=== PATIENT | female | born 1940 | race Caucasian/White ===

== ENCOUNTER 2016-11-06 08:30 | Inpatient (IN) | payer OTHER, MEDICARE ==
[~2016-11-06] VITALS: Ht 162.6 cm; Wt 51.7 kg
[~2016-11-06 08:30] MED LIST: AUGMENTIN 875 M1 TAB PO; CALCIUM + D 6001 TAB PO; CARAFATE1 GM/10 ML PO; CENTRUM SILVER1 TA1 PO; COUMADIN 5 MG TA5 MG PO; CRESTOR20 M1 PO; CRESTOR20 MG PO; ELIQUIS2.5 MG PO; FENOFIBRATE145 MG PO; FOLIC ACID0.4 MG PO; HYDRODIURIL 112.5 M1 PO; IRBESARTAN300 MG PO; LEVOTHYROXIN0.088 M1 PO; LOPRESSOR 25MG25 MG PO; MASON NATURAL1200 MG PO; NEXIUM 40MG40 MG PO; NITROSTAT0.4 MG SL; PYRIDIUM100 MG PO; TRANS SCOPE PAT1 PAT TOP; TRIAMCINOLONE 0.1 GM TOP; WARFARIN SODIUM2 MG PO
--- NOTE | 2016-11-06 08:38 | NUR ---
PT TO ED S/P VOMITING AND DIARRHEA THIS AM, "WITH BRIGHT RED BLOOD IN BOTH". PT HAD KIDNEY PROCEDURE YESTERDAY "HAD FLUID DRAINED FROM LEFT KIDNEY".
--- NOTE | 2016-11-06 08:45 | NUR ---
PT DIRECTLY TO ROOM # 5, CHANGED TO HOSP GOWN FOR PROVIDER EVAL.
--- NOTE | 2016-11-06 08:48 | NUR ---
PT PLACED ON ACCOUNTANT SYSTEMS, 20G IV INSERTED TO RAC. EKG DONE BY MST AT BEDSIDE LABS DRAWN AND SENT.
--- NOTE | 2016-11-06 08:55 | NUR ---
NARDA TREVIZO AT BEDSIDE.
--- NOTE | 2016-11-06 08:59 | ED GI/GU/ABDOMINAL COMPLAINT ---
See Addendum History of Present Illness General Chief Complaint: Abdominal Pain/Flank Pain Stated Complaint: BLDY STOOLS TODAY AFTER KIDNEY PROCEDURE YESTERDAY Source: patient, family Exam Limitations: no limitations Vital Signs & Intake/Output Vital Signs & Intake/Output Vital Signs Date Time Temp Pulse Resp B/P Pulse O2 O2 Flow FiO2 Ox Delivery Rate 11/06 1531 97.8 52 20 130/60 91 Room Air 11/06 1459 98.2 52 18 105/50 95 Room Air 11/06 1229 57 16 152/65 97 Room Air 11/06 1134 97.4 53 18 118/58 99 Room Air 11/06 1043 98.4 56 16 134/60 100 Room Air 11/06 0944 93 Room Air Room Air 11/06 0833 95.6 52 20 123/82 93 Room Air Room Air Allergies Coded Allergies: darifenacin (Severe, UNKNOWN 11/29/15) lidocaine (Severe, RASH 11/29/15) nifedipine (Severe, UNKNOWN 11/29/15) phenobarbital (Severe, UNKNOWN 11/29/15) prednisolone (Severe, RASH 11/29/15) morphine (Mild, NAUSEA 11/29/15) Sulfa (Sulfonamide Antibiotics) (UNKNOWN 11/29/15) amitriptyline (RASH 11/29/15) aspirin (UNKNOWN 11/29/15) celecoxib (From CELEBREX) (UNKNOWN 11/29/15) clopidogrel (UNKNOWN 11/29/15) diclofenac (From VOLTAREN) (RASH 11/29/15) ezetimibe (UNKNOWN 11/29/15) fluoxetine (From PROZAC) (N/V 11/29/15) metoclopramide (UNKNOWN 11/29/15) nitrofurantoin (PAIN, TREMORS, N/V 11/29/15) ciprofloxacin (From CIPRO) (Severe, GI UPSET 11/29/15) Uncoded Allergies: ALL NASAL SPRAYS (Severe, UNKNOWN PER PT 04/17/15) Reconcile Medications Calcium Carbonate (Calcium) 600 MG (1,500 MG) TABLET 1 TAB PO BID SUPPLEMENT (Reported) Enoxaparin Sodium 80 MG/0.8 ML SYRINGE 40 MG SC BID UNK (Reported) Esomeprazole (Nexium) 40 MG CAPSULE.DR 1 CAP PO BID GI (Reported) FENOFIBRATE NANOCRYSTALLIZED (Fenofibrate) 145 MG TABLET 1 TAB PO DAILY CHOLESTEROL (Reported) Hydrochlorothiazide (Hydrodiuril 12.5 MG Tab) 12.5 MG CAPSULE 1 CAP PO DAILY BP (Reported) Hyoscyamine (Levsin) 0.125 MG TABLET 1 TAB PO BID UNK (Reported) Irbesartan 300 MG TAB 1 TAB PO DAILY HTN (Reported) Levothyroxine Sodium 0.088 MG TAB 1 TAB PO DAILY AC THYROID (Reported) Metoprolol Tartrate (Lopressor) 25 MG TABLET 1 TAB PO BID HEART (Reported) Multivitamin, Minerals, and (Centrum Silver) 1 TAB TAB 1 TAB PO DAILY SUPPLEMENT (Reported) Nitroglycerin (Nitrostat) 0.4 MG TAB.SUBL 1 TAB SL AD PRN ANGINA (Reported) DID NOT RECEIVE Rosuvastatin Calcium (Crestor) 20 MG TAB 20 MG PO DAILY CHOLESTEROL (Reported ) Scopolamine Hydrobromide (Transderm-Scop) 1.5MG/3DAY PATCH.TD.3 1 PAT TOP Q3D PRN VERTIGO (Reported) apply to the hairless area behind 1 ear at least 4 hours before effect is required; reapply every 3 days as needed Sucralfate (Carafate) 1 GRAM/10 ML ORAL.SUSP 10 ML PO TID GI (Reported) 1 hour before meals Triamcinolone Acetonide 0.1 % CREAM..G. 1 CLAUDIO TOP BID UNK (Reported) Warfarin Sodium (Coumadin) 5 MG TAB 5 MG PO DAILY BLOOD THINNER (Reported) Triage Note: PT TO ED S/P VOMITING AND DIARRHEA THIS AM, "WITH BRIGHT RED BLOOD IN BOTH". PT HAD KIDNEY PROCEDURE YESTERDAY "HAD FLUID DRAINED FROM LEFT KIDNEY". Triage Nurses Notes Reviewed? yes ? n Is pt currently ? No Onset: Abrupt Duration: day(s): (1), constant, getting worse Timing: recent history Location: generalized abdomen No Modifying Factors: none HPI: 75-year-old female that is on Coumadin comes into the emergency room for further evaluation after a renal aspiration occurred yesterday. Patient had a procedure done by Dr. Prieto. Patient reports that since then she's had some blood in her stool and was vomiting some blood. Patient also reports some generalized abdominal pain and generalized pain. Her left arm is also very sore. Denies any chills. Patient has had increased weakness. Denies any chest pain or shortness of breath. Nothing is seen to make the symptoms better. Patient reports that her stool color was black and bright red as well as her vomit. (ZULEIKA VASQUEZ) Past History Travel History Traveled to [place] past 21 day No Medical History Any Pertinent Medical History? 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 No (ZULEIKA VASQUEZ) Review of Systems Review of Systems Constitutional: Reports: see HPI. EENTM: Reports: no symptoms. Respiratory: Reports: no symptoms. Cardiovascular: Reports: no symptoms. GI: Reports: see HPI. Genitourinary: Reports: no symptoms. Musculoskeletal: Reports: see HPI. Skin: Reports: no symptoms. Neurological/Psychological: Reports: no symptoms. Hematologic/Endocrine: Reports: see HPI. Immunologic/Allergic: Reports: no symptoms. All Other Systems: Reviewed and Negative (ZULEIKA VASQUEZ) Physical Exam Physical Exam General Appearance: alert, awake, mild distress Head: atraumatic, normal appearance Eyes: Bilateral: normal appearance, EOMI. Ears, Nose, Throat, Mouth: hearing grossly normal, moist mucous membrane Neck: normal inspection Respiratory: normal breath sounds, no respiratory distress Cardiovascular: regular rate/rhythm Gastrointestinal: normal bowel sounds, soft, non-tender Rectal: heme negative stool Back: normal inspection Extremities: normal range of motion Neurologic/Psych: awake, alert, oriented x 3, normal gait, normal mood/affect Skin: intact, normal color Core Measures ACS in differential dx? No Severe Sepsis Present: No Septic Shock Present: No (ZULEIKA VASQUEZ) Progress Differential Diagnosis: kidney stone, pancreatitis, PID/cervicitis, peptic ulcer disease, varices, diverticulosis, angiodysplasia, hemorrhoids, perforated viscus , Plan of Care: Orders Procedure Date/time Status Heart Healthy Diet 11/06 D Active Patient Data 11/06 1357 Active Admit to inpatient 11/06 1259 Active Vital Signs 11/06 1259 Active Code Status 11/06 1259 Active LACTIC ACID 11/06 1148 Complete Add-on Test (ER Only) 11/06 1139 Active Straight Cath 11/06 0932 Active URINALYSIS 11/06 0932 Complete Intake & Output 11/06 0917 Active TROPONIN LEVEL 11/06 0848 Complete PARTIAL THROMBOPLASTIN TIME 11/06 0848 Complete PROTHROMBIN TIME 11/06 0848 Complete LACTIC ACID 11/06 0848 Complete COMPREHENSIVE METABOLIC PANEL 11/06 0848 Complete CBC WITHOUT DIFFERENTIAL 11/06 0848 Complete TYPE & SCREEN (NOT X-MATCH) 11/06 0848 Complete EKG 11/06 0832 Active Laboratory Tests 11/06/16 1222: Lactic Acid 1.2 11/06/16 0935: Urine Color YEL, Urine Clarity HAZY H, Urine pH 7.0, Ur Specific [place] 1.015, Urine Protein NEG, Urine Ketones NEG, Urine Nitrite POS H, Urine Bilirubin NEG, Urine Urobilinogen 1.0, Ur Leukocyte Esterase SMALL H, Ur Microscopic SEDIMENT EXAMINED, Urine RBC RARE, Urine WBC 10-15 H, Ur Epithelial Cells FEW, Urine Hemoglobin NEG, Urine Glucose NEG 11/06/16 0848: Anion Gap 13, Estimated GFR 48 L, BUN/Creatinine Ratio 24.5, Glucose 113 H, Lactic Acid 2.8 H, Calcium 9.8, Total Bilirubin 0.7, AST 49 H, ALT 39, Alkaline Phosphatase 73, Troponin I < 0.01, Total Protein 7.4, Albumin 4.5, Globulin 2.9, Albumin/Globulin Ratio 1.6, PT 11.7, INR 1.12, APTT 28, CBC w Diff NO MAN DIFF REQ, RBC 4.59, MCV 85.7, MCH 28.3, RDW 13.3, MPV 9.7, Gran % 78.0 H , Lymphocytes % 14.3 L, Monocytes % 6.5, Eosinophils % 1.0, Basophils % 0.2, Absolute Granulocytes 9.4 H, Absolute Lymphocytes 1.7, Absolute Monocytes 0.8 H, Absolute Eosinophils 0.1, Absolute Basophils 0, PUBS MCHC 33.0 Diagnostic Imaging: Viewed by Me: CT Scan. Discussed w/RAD: CT Scan. Radiology Impression: EXAM TYPE: CAT - CT ABD & PELVIS W/O IV CONTRAS EXAMINATION: CT ABDOMEN AND PELVIS WITHOUT CONTRAST CLINICAL INFORMATION: Left flank pain. COMPARISON: Multiple CT abdomen and pelvis most recent prior dated 06/25/2016 TECHNIQUE: Multidetector volumetric imaging was performed from the superior aspect of the liver through the pubic symphysis. Sagittal and coronal reformatted images were obtained on the technologist's workstation. DLP: 274.76 mGy-cm. FINDINGS: LUNG BASES: Subtle pulmonary nodule noted in the right base measuring approximately 0.4 cm has remained stable since 04/17/2015. Dependent atelectatic changes. Previously identified nodular opacity right posterior base is less well-visualized on the current examination. Pleural-based atelectatic changes bilateral bases. LIVER, GALLBLADDER, AND BILIARY TREE: The liver is normal in size, shape, and attenuation. No focal hepatic lesion or biliary ductal dilatation is present. Nonvisualization of the gallbladder. Stable prominence of the CBD measuring approximately 0.7 cm likely representing a postcholecystectomy change. PANCREAS: Unremarkable. SPLEEN: Unremarkable. ADRENAL GLANDS: Unremarkable. KIDNEYS AND URETERS: No evidence of renal stones. Stable minor fullness of the renal pelvis noted bilaterally. No obstructing calculi identified. Cortical infarct/indentation along the medial aspect left renal cortex. Previously identified low-attenuation lesion medial aspect left renal cortex is no longer visualized. BLADDER: Unremarkable. GASTROINTESTINAL TRACT: Incomplete distention of the stomach limiting the evaluation of the gastric wall. Small hiatal hernia. No acute bowel pathology. Evaluation of the bowel wall is limited due to incomplete distention notably sigmoid colon and rectum. No evidence of bowel obstruction. Minor diverticulosis. No evidence of acute diverticulitis., ABDOMINAL WALL: No significant hernia is appreciated. LYMPH NODES: No evidence of lymphadenopathy. VASCULAR: Atherosclerotic disease of the aorta and aortic branches. PELVIC VISCERA: Status post hysterectomy. No suspicious pelvic abnormality OSSEOUS STRUCTURES: Mild degenerative changes of the spine. No acute osseous abnormality. IMPRESSION: 1. Stable right lower lobe pulmonary nodule. Previously identified larger right lower lobe nodular opacity is less appreciated. Bibasilar atelectasis. 2. Mild fullness of bilateral renal collecting system without any gross hydronephrosis. No obstructing calculi. 3. No acute bowel pathology. 4. Cortical indentation and scarring noted in the medial aspect mid right kidney. Previously seen cortical lesion is no longer appreciated. DICTATED BY: DELANEY PAREDES MD DATE/TIME DICTATED:11/06/161055 EVENT SECURITY OFFICER:GRETEL Initial ED EKG: normal sinus rhythm, rate (60), nonspecific ST T wave chg, first -degree AV block (ZULEIKA VASQUEZ) Departure Departure Disposition: STILL A PATIENT Condition: Stable Clinical Impression Primary Impression: Lactic acid acidosis Secondary Impressions: Dehydration, Intractable abdominal pain, Leukocytosis Referrals: YOMI MONTES MD (PCP/Family) Departure Forms: Customer Survey General Discharge Information Admission Note Documentation of Exam: Documentation of any treatments & extenuating circumstances including Concerns Regarding Discharge (functional status, medication knowledge or non-compliance, living conditions, etc.) that warrant an admission rather than observation: Patient will require IV pain medication. Patient has required multiple doses of IV pain medication and emergency room and continues to have severe pain still. Patient is also continuously vomiting despite IV Zofran. Patient will require IV hydration secondary to lactic acidosis. Patient is unable to ambulate here in the emergency room. Patient is a fall risk. Patient would do poorly as an outpatient. Patient may require urology consultation from most recent aspiration of cyst. Patient will require also physical therapy consultation. (ZULEIKA VASQUEZ) Admission Note Spoke With: FREDY NAJERA MD Documentation of Exam: Documentation of any treatments & extenuating circumstances including Concerns Regarding Discharge (functional status, medication knowledge or non-compliance, living conditions, etc.) that warrant an admission rather than observation: [I' ve seen and personally examined the patient. She has intractable left flank pain after renal biopsy. Sending her home would be unsafe and is not unreasonable has she is in severe pain.] PA/LEAD WEB APPLICATION DEVELOPER Co-Sign Statement Statement: ED Attending supervision documentation- [X] I saw and evaluated the patient. I have also reviewed all the pertinent lab results and diagnostic results. I agree with the findings and the plan of care as documented in the PA's/LEAD WEB APPLICATION DEVELOPER's documentation. [] I have reviewed the ED Record and agree with the PA's/LEAD WEB APPLICATION DEVELOPER's documentation. [] Additions or exceptions (if any) to the PAs/LEAD WEB APPLICATION DEVELOPER's note and plan are summarized below: [] (COLEMAN GREENFIELD DO) Critical Care Note Critical Care Note Critical Care Time: 30-74 min (ZULEIKA VASQUEZ)
[2016-11-06 09:00] LABS: ABSOLUTE BASOPHIL COUNT 0 /CUMM (0.0-0.2); ABSOLUTE EOSINOPHIL COUNT 0.1 /CUMM (0.0-0.7); ABSOLUTE GRANULOCYTE CT 9.4 /CUMM (1.4-6.5); ABSOLUTE LYMPH COUNT 1.7 /CUMM (1.2-3.4); ABSOLUTE MONOCYTE COUNT 0.8 /CUMM (0.10-0.60); BASOPHIL % 0.2 % (0.0-2.0); HEMATOCRIT 39.3 % (37-47); MEAN CORPUSCULAR HGB 28.3 PG (27.0-31.0); MEAN CORPUSCULAR VOLUME 85.7 FL (81.0-99.0); MEAN PLATELET VOLUME 9.7 FL (7.4-10.4); PLATELET COUNT 251 /CUMM (130-400); RBC DISTRIBUTION WIDTH 13.3 % (11.5-14.5); RED BLOOD CELL CT 4.59 /CUMM (4.20-5.40)
[2016-11-06 09:11] LABS: PT 11.7 SEC (9.4-12.5); PTT 28 SEC (25-37)
[2016-11-06] MEDS ORDERED: CALCIUM600 M2 PO (09:12)
[2016-11-06] MEDS ORDERED: LEVSIN0.125 M1 PO (09:13)
[2016-11-06] MEDS ORDERED: TRIAMCINOLONE A15 G1 TOP (09:14)
--- NOTE | 2016-11-06 09:15 | NUR ---
ASSUMED CARE OF THIS PATIENT PT STRAIGHT CATHETERIZED FOR URINE SPECIMEN TOLERATED SAME WELL. SPECIMEN OBTAINED.
[2016-11-06] MEDS ORDERED: ENOXAPARIN80 MG/0.2 SC (09:16)
--- NOTE | 2016-11-06 09:19 | NUR ---
CRITICAL TEST RESULTS [id number] CHETAN SHARMA 75 F TESTS AND RESULTS: LACTIC ACID 2.8 Results received and read back by: TOMASZ MAGALLON Results received date and time: 11/06/16 0919 The following provider was notified of the results, and read the results back: NARDA TREVIZO Notified date and time: 11/06/16 at 0920
--- NOTE | 2016-11-06 09:29 | NUR ---
NANCY FROST AT BEDSIDE FOR REDRAW OF BLOOD, PT REPORTED INABILITY TO LIFT L ARM. UPON THIS RN EVAL PT OBSERVED TO LIFT ARM APPROX 6 INCHES OFF BED BUT NO FURTHER R/T PAIN. HAND GRASP SLIGHTLY WEAKER ON L ARM. LEG EXTENSION/FLEXION EQUAL. NARDA TREVIZO MADE AWARE OF SAME.
--- NOTE | 2016-11-06 09:42 | NUR ---
REPEAT PINK DRAWN AND SENT TO LAB.
--- NOTE | 2016-11-06 10:14 | NUR ---
IVF N/S INFUSION INITIATED AND PT MEDICATED WITH ZOFRAN AND DILAUDID PER ORDERS
--- NOTE | 2016-11-06 10:30 | NUR ---
PT TAKEN TO RADIOLOGY VIA STRETCHER
--- NOTE | 2016-11-06 11:21 | CT SCAN REPORT ---
EXAMINATION: CT ABDOMEN AND PELVIS WITHOUT CONTRAST CLINICAL INFORMATION: Left flank pain. COMPARISON: Multiple CT abdomen and pelvis most recent prior dated 06/25/2016 TECHNIQUE: Multidetector volumetric imaging was performed from the superior aspect of the liver through the pubic symphysis. Sagittal and coronal reformatted images were obtained on the technologist's workstation. DLP: 274.76 mGy-cm. FINDINGS: LUNG BASES: Subtle pulmonary nodule noted in the right base measuring approximately 0.4 cm has remained stable since 04/17/2015. Dependent atelectatic changes. Previously identified nodular opacity right posterior base is less well-visualized on the current examination. Pleural-based atelectatic changes bilateral bases. LIVER, GALLBLADDER, AND BILIARY TREE: The liver is normal in size, shape, and attenuation. No focal hepatic lesion or biliary ductal dilatation is present. Nonvisualization of the gallbladder. Stable prominence of the CBD measuring approximately 0.7 cm likely representing a postcholecystectomy change. PANCREAS: Unremarkable. SPLEEN: Unremarkable. ADRENAL GLANDS: Unremarkable. KIDNEYS AND URETERS: No evidence of renal stones. Stable minor fullness of the renal pelvis noted bilaterally. No obstructing calculi identified. Cortical infarct/indentation along the medial aspect left renal cortex. Previously identified low-attenuation lesion medial aspect left renal cortex is no longer visualized. BLADDER: Unremarkable. GASTROINTESTINAL TRACT: Incomplete distention of the stomach limiting the evaluation of the gastric wall. Small hiatal hernia. No acute bowel pathology. Evaluation of the bowel wall is limited due to incomplete distention notably sigmoid colon and rectum. No evidence of bowel obstruction. Minor diverticulosis. No evidence of acute diverticulitis., ABDOMINAL WALL: No significant hernia is appreciated. LYMPH NODES: No evidence of lymphadenopathy. VASCULAR: Atherosclerotic disease of the aorta and aortic branches. PELVIC VISCERA: Status post hysterectomy. No suspicious pelvic abnormality OSSEOUS STRUCTURES: Mild degenerative changes of the spine. No acute osseous abnormality. IMPRESSION: 1. Stable right lower lobe pulmonary nodule. Previously identified larger right lower lobe nodular opacity is less appreciated. Bibasilar atelectasis. 2. Mild fullness of bilateral renal collecting system without any gross hydronephrosis. No obstructing calculi. 3. No acute bowel pathology. 4. Cortical indentation and scarring noted in the medial aspect mid right kidney. Previously seen cortical lesion is no longer appreciated.
--- NOTE | 2016-11-06 11:37 | NUR ---
PT MEDICATED WITH ADDITIONAL DOSE OF DILAUDID PER ORDERS
--- NOTE | 2016-11-06 12:09 | NUR ---
PT MEDICATED WITH ZOFRAN PER ORDERS
--- NOTE | 2016-11-06 12:16 | NUR ---
1st set of blood cultures drawn and sent to lab.
--- NOTE | 2016-11-06 12:24 | NUR ---
REPEAT LACTIC DRAWN AND SENT TO LAB.
--- NOTE | 2016-11-06 12:28 | NUR ---
PT STATES PAIN IS BETTER BUT NAUSEA PERSISTS REFUSES TO ATTEMPT AMBULATION AT THIS TIME
--- NOTE | 2016-11-06 14:39 | NUR ---
PT ADMITTED TO ROOM 230
--- NOTE | 2016-11-06 14:43 | NUR ---
REPORT TO STEPHANIE DOUGLAS
--- NOTE | 2016-11-06 15:26 | History & Physical ---
CRISTINA SILVA 11/06/16 1524: General Information and HPI MD Statement: I have seen and personally examined CHETAN SHARMA and documented this H&P. The patient is a 75 year old F who presented with a patient stated chief complaint of []. Source of Information: patient Exam Limitations: no limitations History of Present Illness: This is a 75-year-old female with past medical history of hypertension , GERD, hyperlipidemia, ischemic heart disease status post stent placement and quadruple bypass on coumadin, mixed connective tissue disease, history of multiple frequent urinary tract infections, nephrolithiasis, anxiety, depression came in today on 11/06/2016 chief complain of vomiting and diarrhea with bright red blood present in both and worsening lower lumbar abdominal pain since today morning. Since last few months she has been having bilateral lower lumbar back pain, she was found to have bilateral renal cysts,this was being followed by Dr. Prieto as outpatient, she had drainage of the the renal cyst one day prior to admission after which since today mrtye, her pain incresed significalty, 10/10,no radiation,lower lumbar back left > right, and she also had an episode of vmiting with streaks of bright red blood and one episode of dirrhea with pinkish blood also, however no christine bleeding was observed. Subsequent vomiting on couple of occassions in the ER didnot have any blood. Of note she is allergic many medications as mentioned in allergy section. She denied any chills, chest pain, shortness of breath, diarrhea, constipation. Allergies/Medications Allergies: Coded Allergies: darifenacin (Severe, UNKNOWN 11/29/15) lidocaine (Severe, RASH 11/29/15) nifedipine (Severe, UNKNOWN 11/29/15) phenobarbital (Severe, UNKNOWN 11/29/15) prednisolone (Severe, RASH 11/29/15) morphine (Mild, NAUSEA 11/29/15) Sulfa (Sulfonamide Antibiotics) (UNKNOWN 11/29/15) amitriptyline (RASH 11/29/15) aspirin (UNKNOWN 11/29/15) celecoxib (From CELEBREX) (UNKNOWN 11/29/15) clopidogrel (UNKNOWN 11/29/15) diclofenac (From VOLTAREN) (RASH 11/29/15) ezetimibe (UNKNOWN 11/29/15) fluoxetine (From PROZAC) (N/V 11/29/15) metoclopramide (UNKNOWN 11/29/15) nitrofurantoin (PAIN, TREMORS, N/V 11/29/15) ciprofloxacin (From CIPRO) (Severe, GI UPSET 11/29/15) Uncoded Allergies: ALL NASAL SPRAYS (Severe, UNKNOWN PER PT 04/17/15) Home Med list Calcium Carbonate (Calcium) 600 MG (1,500 MG) TABLET 1 TAB PO BID SUPPLEMENT (Reported) Enoxaparin Sodium 80 MG/0.8 ML SYRINGE 40 MG SC BID UNK (Reported) Esomeprazole (Nexium) 40 MG CAPSULE.DR 1 CAP PO BID GI (Reported) FENOFIBRATE NANOCRYSTALLIZED (Fenofibrate) 145 MG TABLET 1 TAB PO DAILY CHOLESTEROL (Reported) Hydrochlorothiazide (Hydrodiuril 12.5 MG Tab) 12.5 MG CAPSULE 1 CAP PO DAILY BP (Reported) Hyoscyamine (Levsin) 0.125 MG TABLET 1 TAB PO BID UNK (Reported) Irbesartan 300 MG TAB 1 TAB PO DAILY HTN (Reported) Levothyroxine Sodium 0.088 MG TAB 1 TAB PO DAILY AC THYROID (Reported) Metoprolol Tartrate (Lopressor) 25 MG TABLET 1 TAB PO BID HEART (Reported) Multivitamin, Minerals, and (Centrum Silver) 1 TAB TAB 1 TAB PO DAILY SUPPLEMENT (Reported) Nitroglycerin (Nitrostat) 0.4 MG TAB.SUBL 1 TAB SL AD PRN ANGINA (Reported) DID NOT RECEIVE Rosuvastatin Calcium (Crestor) 20 MG TAB 20 MG PO DAILY CHOLESTEROL (Reported ) Scopolamine Hydrobromide (Transderm-Scop) 1.5MG/3DAY PATCH.TD.3 1 PAT TOP Q3D PRN VERTIGO (Reported) apply to the hairless area behind 1 ear at least 4 hours before effect is required; reapply every 3 days as needed Sucralfate (Carafate) 1 GRAM/10 ML ORAL.SUSP 10 ML PO TID GI (Reported) 1 hour before meals Triamcinolone Acetonide 0.1 % CREAM..G. 1 CLAUDIO TOP BID UNK (Reported) Warfarin Sodium (Coumadin) 5 MG TAB 5 MG PO DAILY BLOOD THINNER (Reported) Compliance With Home Meds: GOOD Past History Travel History Traveled to [place] past 21 day No Medical History Blood Transfusion Hx: No Neurological: NONE EENT: NONE Cardiovascular: hypertension, hyperlipidemia, myocardial infarction, STENTS X 3 CABGX 4 EMBOLIC FEET CARDIAC THROMBUS Respiratory: NONE Gastrointestinal: NONE Hepatic: NONE Renal: nephrolithiasis, previous urinary tract infections Musculoskeletal: osteoarthritis, Raynaud's syndrome Psychiatric: anxiety, depression Endocrine: NONE Blood Disorders: NONE Cancer(s): NONE SHRUB GROWER/Reproductive: NONE History of MRSA: No History of VRE: No History of CDIFF: No Surgical History Surgical History: CABG, cholecystectomy, hysterectomy Past Family/Social History Family History Relations & Conditions if any FATHER FH: heart attack MOTHER FHx: heart disease Psychosocial History Where do you live? Home Who Do You Live With? spouse Services at Home: None Primary Language: Northern Irish Smoking Status: Former Smoker ETOH Use: denies use Illicit Drug Use: denies illicit drug use Functional Ability ADLs Independent: dressing, eating, toileting, bathing. Ambulation: independent Review of Systems Review of Systems Constitutional: Denies: chills, diaphoresis, fever, malaise, weakness. EENTM: Denies: blurred vision, double vision, visual changes, eye pain, eye drainage. Cardiovascular: Denies: chest pain, edema, orthopena, palpitations. Respiratory: Denies: cough, hemoptysis, orthopnea, short of breath, sputum production, stridor, wheezing. GI: Reports: abdominal pain, nausea, bloody stool. Denies: bloating, constipation, diarrhea, distention. Genitourinary: Reports: dysuria, urgency. Denies: discharge, frequency, hematuria. Musculoskeletal: Reports: back pain, muscle pain. Denies: gout, joint pain, joint swelling. Skin: Reports: no symptoms. Neurological/Psychological: Reports: no symptoms. Hematologic/Endocrine: Reports: no symptoms. Immunologic/Allergic: Reports: no symptoms. All Other Systems: Reviewed and Negative Exam & Diagnostic Data Last 24 Hrs of Vital Signs/I&O Vital Signs Date Time Temp Pulse Resp B/P Pulse O2 O2 Flow FiO2 Ox Delivery Rate 11/06 1531 97.8 52 20 130/60 91 Room Air 11/06 1459 98.2 52 18 105/50 95 Room Air 11/06 1229 57 16 152/65 97 Room Air 11/06 1134 97.4 53 18 118/58 99 Room Air 11/06 1043 98.4 56 16 134/60 100 Room Air 11/06 0944 93 Room Air Room Air 11/06 0833 95.6 52 20 123/82 93 Room Air Room Air Intake & Output 11/06 1600 11/06 0800 11/06 0000 Intake Total Output Total 50 Balance -50 Output, Urine 50 Patient 51.71 kg Weight Physical Exam General Appearance Alert, Oriented X3, Cooperative, Mild Distress Skin No Rashes, No Breakdown, No Significant Lesion HEENT Atraumatic, PERRLA, EOMI Neck Supple, No JVD, No thryomegaly Lymphatic NAD Cardiovascular Regular Rate, Normal S1, Normal S2, No Murmurs Lungs Clear to Auscultation, Normal Air Movement Abdomen Normal Bowel Sounds, Soft, No Tenderness, back lower lumbar back tenderness, bandage present over the left renal cyst drainage yday, area clear, no redness, b/l CVA tenderness + Neurological Normal Gait, Normal Speech, Strength at 5/5 X4 Ext, Normal Tone, Sensation Intact, Cranial Nerves 3-12 NL Extremities No Clubbing, No Cyanosis, No Edema, Normal Pulses Vascular Normal Pulses Last 24 Hrs of Labs/Keshawn: Laboratory Tests 11/06/16 1222: Lactic Acid 1.2 11/06/16 0935: Urine Color YEL, Urine Clarity HAZY H, Urine pH 7.0, Ur Specific Pheba 1.015, Urine Protein NEG, Urine Ketones NEG, Urine Nitrite POS H, Urine Bilirubin NEG, Urine Urobilinogen 1.0, Ur Leukocyte Esterase SMALL H, Ur Microscopic SEDIMENT EXAMINED, Urine RBC RARE, Urine WBC 10-15 H, Ur Epithelial Cells FEW, Urine Hemoglobin NEG, Urine Glucose NEG 11/06/16 0848: Anion Gap 13, Estimated GFR 48 L, BUN/Creatinine Ratio 24.5, Glucose 113 H, Lactic Acid 2.8 H, Calcium 9.8, Total Bilirubin 0.7, AST 49 H, ALT 39, Alkaline Phosphatase 73, Troponin I < 0.01, Total Protein 7.4, Albumin 4.5, Globulin 2.9, Albumin/Globulin Ratio 1.6, PT 11.7, INR 1.12, APTT 28, CBC w Diff NO MAN DIFF REQ, RBC 4.59, MCV 85.7, MCH 28.3, RDW 13.3, MPV 9.7, Gran % 78.0 H , Lymphocytes % 14.3 L, Monocytes % 6.5, Eosinophils % 1.0, Basophils % 0.2, Absolute Granulocytes 9.4 H, Absolute Lymphocytes 1.7, Absolute Monocytes 0.8 H, Absolute Eosinophils 0.1, Absolute Basophils 0, PUBS MCHC 33.0 Microbiology 11/06 1658 BLOOD: Blood Culture - COLB 11/06 1653 URINE ROUT: Urine Culture - COLB 11/06 1653 BLOOD: Blood Culture - COLB Assessment/Plan Assessment: This is a 75-year-old female with past medical history of hypertension , GERD, hyperlipidemia, ischemic heart disease status post stent placement and quadruple bypass on coumadin, mixed connective tissue disease, history of multiple frequent urinary tract infections, nephrolithiasis,anxiety, depression came in today on 11/06/2016 for further evaluation after renal aspiration that occurred yesterday with chief complain of vomiting and diarrhea with bright red blood present in both and worsening lower lumbar abdominal pain since morning of admssion. ((Since last few months she has been having bilateral lower lumbar back pain, she was found to have bilateral renal cysts,this was being followed by Dr. Prieto as outpatient, she had drainage of the the renal cyst one day prior to admission after which since today mrtye, her pain incresed significalty, 10/ ,no radiation,lower lumbar back left > right)) She denied any chills, chest pain, shortness of breath, diarrhea, constipation. Vitals on presentation MAXIMUM TEMPERATURE of 98.4, pulse of 57, respiration of 16-20, blood pressure of 134/60, which came down to 105/50, was saturating 93-97 % on room air. Relevant labs white count of 12.0, H/H of 13.0/39.3, platelet of 251. Electrolytes sodium of 142, potassium of 4.1, BUN and creatinine 27/1.1, estimated GFR of 48, glucose of 113, lactic acid of 2.8, AST 49, ALT 139, alkaline phosphatase 73. Troponin was negative less than 0.01. UA showed 10-15 WBCs, small leukocyte esterase, positive for nitrite. seocnd lactic acid came down to 1.2. CT abdominal and pelvis showed stable right lower lobe pulmonary nodule, previously identified larger right lower lobe nodular opacity, bibasilar atelectasis, mild fullness of bilateral renal collecting system without any gross hydronephrosis, no obstructing calculi. Cortical indentation and scarring noted in the medial aspect of the mid right kidney, which was not present on the previous CAT scan. General Medicine admission Problem list alognwith assement and plan Problem #1 Suspected UTI in presence of symptoms of burning and positive Ua , note mildly elevated white count , no fever. * Ct vitals every shift * please obtain urine and blood cultrue prior to antibiotic. * Please ct iv ceftrixone for suspected UTI (note patient allergic to nitrofuratoin, ciprolfloxacin) * Ct monitor i/o Problem #2 S/o Renal Cyst drainage * urology consult. * Dr Prieto has been followign her as OP. * She is s/p drainage of renal cyst. * Will obtain urology consult in am. Problem #3 Left lower lumbar back pain * Most likely 2/2 to renal cyst and could be worst after drainage ? complication. * Patint is allergic to many pain medications. * Will do tyelnol for mild to moderate pain * If pain very severe then low dose 0.2 nd iv dilaudid * high dose of dilaudid is not tolerable and ifshe starts to vomit. * PRN zofran for nausea/ vomting. Problem # 4 H/o CAD s/p bypass. * Ct asprin * Patient is on coumadin ( as per previous notes she is on coumadin because she is allergic to aspirin and plavix , patient and donot know the reason, I could find any other definitive reason) * However to note , she was not dosed coumadin for last 5 days as she was planned for drainage of renal cyst whic was done one day prior ro admission. * As she reports blood in vomtius and stools, we will not dose coumadin today, however reevalute tmrw and touch basewith urology for coumadin restrating. * Ct INR monitoring. DVT PX : heparin ( once coumadin started please dc heparin) FC Regular diet. Hypertension, HL, hypothyroid : CT home medications. Please confirm CMR in am - the patient current medication list didnot have metorpolol and irbesatran, however on previous admission in Sep 2015, this was present on Discharge medications on last admission. Patient and her not very sure if they were stopped, DC or missing on the list.I am holding them for now untill we clarify. As Ranked By This Provider Problem List: 1. Urinary tract infection 2. CAD (coronary artery disease) 3. Hypertension 4. Hyperlipidemia 5. Hypothyroidism 6. Intractable abdominal pain 7. Flank pain, acute Core Measures/Miscellaneous Acute Coronary Syndrome ACS Diagnosis: No Cerebrovascular Accident CVA/TIA Diagnosis: No Congestive Heart Failure CHF Diagnosis: No Venous Thromboembolism VTE Risk Factors: Age > 40 VTE Prophylaxis Ordered Inpt: Pharm- Heparin No Mech VTE prophylaxis d/t: No contraindications No VTE Pharm Prophylaxis d/t: No contraindications VTE Diagnosis: No VTE Type: NONE VTE Confirmed by (Test): NONE Severe Sepsis Severe Sepsis Present: No Septic Shock Septic Shock Present: No Miscellaneous Documentation Attending Case Discussed With: FREDY NAJERA MD Primary Care Physician: YOMI MONTES MD Patient sees these Specialists DR Prieto Level of Patient Care: General Medicine Resident Review Statement Resident Statement: admitted by resident FREDY NAJERA MD 11/06/16 1718: Attending MD Review Statement Attending Statement Attending MD Statement: examined this patient, discuss w/resident/PA/TORCH SOLDERER, agreed w/resident/PA/TORCH SOLDERER, reviewed EMR data (avail) Attending Assessment/Plan: 75F PMH HTN, T2DM, GERD, HLD, ischemic heart disease s/p 4v-CABG on coumadin, history of multiple frequent urinary tract infections, nephrolithiasis, ?MCTD, with right renal cyst drainage by IR on 11/05 presenting today with intractable back pain, loose stools with bright red blood, and intractable vomiting with streaked blood. Patient reports her symptoms started after the procedure. Afebrile, stable vitals, WBC 12, Hgb stable, UA suggestive of UTI. No episodes of bloody stools or vomiting while in ED. Plan - Admit to general medicine - Start Ceftriaxone for UTI - Follow urine and blood cultures - Urology consult - Check CBC tomorrow - May give Tylenol for mild-moderate pain and low dose Dilaudid for severe pain - Continue home medications - DVT Ppx
[2016-11-06 15:31] VITALS: BP 130/60
--- NOTE | 2016-11-06 17:18 | Admission Certification ---
Admission Certification Certification Statement - As attending physician, I certify that at the time of - admission, based on clinical presentation, severity of - symptoms, need for further diagnostic testing and - therapeutic interventions, and risk of adverse outcomes - without in-hospital treatment, in my clinical assessment, - this patient requires an acute hospital stay for a minimum - of two nights or longer. I have also considered psychsocial - factors such as support system, advanced age, financial - issues, cognitive issues, and failed out-patient treatments, - past re-admission history, safety of patient, and lack of - compliance as applicable. Specific rationale supporting this admission is: CVA pain, bloody stool, and intractable pain following renal cyst drainage with evidence of urinary infection
[2016-11-06 19:05] VITALS: BP 118/56
[2016-11-06 22:05] VITALS: BP 132/64
[2016-11-07 06:17] VITALS: BP 128/60
--- NOTE | 2016-11-07 07:30 | PN- Housestaff ---
DINESH OSHEA,MONICA 11/07/16 0729: Subjective Follow-up For: UTI InTRACTABLE BACK PAIN Subjective: Patient seen and examined at bedside. Patient states that she is feeling much better and back pain is more controlled. She does not endorse any acute complaint of chest pain, palpitation, shortness of breath, fever, chills, nausea , vomiting, abdominal pain or dysuria. Review of Systems Constitutional: Reports: no symptoms. Objective Last 24 Hrs of Vital Signs/I&O Vital Signs Date Time Temp Pulse Resp B/P Pulse O2 O2 Flow FiO2 Ox Delivery Rate 11/07 0617 97.9 63 20 128/60 99 Room Air 02/03 2205 98.7 52 20 132/64 98 Room Air 02/03 2205 98.7 52 20 132/64 98 Room Air 02/03 1905 98.5 60 18 118/56 98 Room Air 02/03 1905 98.5 60 18 118/56 98 Room Air 02/03 1531 97.8 52 20 130/60 91 Room Air 02/ 1531 97.8 52 20 130/60 91 Room Air 02/03 1459 98.2 52 18 105/50 95 Room Air 02/03 1229 57 16 152/65 97 Room Air 02/03 1134 97.4 53 18 118/58 99 Room Air 02/03 1043 98.4 56 16 134/60 100 Room Air 02/03 0944 93 Room Air Room Air 02/03 0833 95.6 52 20 123/82 93 Room Air Room Air Intake & Output / 0800 02/04 0000 02/03 1600 Intake Total 1005 Output Total 100 50 Balance -100 1005 -50 Intake, IV 525 Intake, Oral 480 Output, Urine 100 50 Patient 51.71 kg Weight Physical Exam General Appearance: Alert, Oriented X3, Cooperative Other Physical Findings: General Appearance Alert, Oriented X3, Cooperative, Mild Distress Skin No Rashes, No Breakdown, No Significant Lesion HEENT Atraumatic, PERRLA, EOMI Neck Supple, No JVD, No thryomegaly Lymphatic NAD Cardiovascular Regular Rate, Normal S1, Normal S2, No Murmurs Lungs Clear to Auscultation, Normal Air Movement Abdomen Normal Bowel Sounds, Soft, No Tenderness, back lower lumbar back tenderness, bandage present over the left renal cyst drainage yday, area clear, no redness, b/l CVA tenderness + Neurological Normal Gait, Normal Speech, Strength at 5/5 X4 Ext, Normal Tone, Sensation Intact, Cranial Nerves 3-12 NL Extremities No Clubbing, No Cyanosis, No Edema, Normal Pulses Vascular Normal Pulses Current Medications: Current Medications Sig/Cassie Start time Last Medication Dose Route Stop Time Status Admin Acetaminophen 650 MG Q6 11/06 1800 AC 11/07 PO 0625 Atorvastatin Calcium 20 MG DAILY 11/06 1806 AC 11/06 PO 2009 Ceftriaxone Sodium 1,000 MG DAILY@1800 11/06 1800 AC 11/06 IV 1905 Fenofibrate 145 MG DAILY 11/06 1804 AC 11/06 PO 2009 Heparin Sodium 5,000 UNIT Q8 11/06 1653 AC 11/07 (Porcine) SC 0625 Hydrochlorothiazide 12.5 MG DAILY 11/06 1804 AC 11/06 PO 2010 Hydromorphone HCl 0.2 MG Q6-PRN PRN 11/06 1730 AC IV Hydromorphone HCl 0 .STK-MED ONE 11/06 1134 DC .ROUTE Hydromorphone HCl 0.6 MG ONCE ONE 11/06 1130 DC /03 IV 11/06 1131 1139 Hydromorphone HCl 0 .STK-MED ONE 11/06 1010 DC .ROUTE Hydromorphone HCl 0.4 MG ONCE ONE 11/06 1000 DC /03 IV / 1001 1014 Levothyroxine Sodium 0.088 MG DAILY AC 11/06 1805 AC 11/07 PO 0620 Ondansetron HCl 0 .STK-MED ONE 11/06 1207 DC .ROUTE Ondansetron HCl 4 MG ONCE ONE 11/06 1200 DC / IV 02/ 1201 1208 Ondansetron HCl 0 .STK-MED ONE 11/06 1009 DC .ROUTE Ondansetron HCl 4 MG ONCE ONE 11/06 1000 DC 02/03 IV 02/ 1001 1014 Sodium Chloride 1,000 ML Q10H 11/06 1700 DC 02/03 IV 02/ 0259 1720 Sodium Chloride 1,000 ML ONCE ONE 11/06 1000 DC 02/ IV 02/ 1639 1014 Last 24 Hrs of Lab/Keshawn Results Last 24 Hrs of Labs/Mics: Laboratory Tests 11/07/16 0640: Anion Gap 9, Estimated GFR 54 L, BUN/Creatinine Ratio 26.0 H, PT 12.6 H, INR 1.20 H, CBC w Diff NO MAN DIFF REQ, RBC 3.93 L, MCV 86.0, MCH 29.0, RDW 13.9, MPV 10.2, Gran % 49.8, Lymphocytes % 39.0, Monocytes % 8.4, Eosinophils % 2.3, Basophils % 0.5, Absolute Granulocytes 2.8, Absolute Lymphocytes 2.2, Absolute Monocytes 0.5, Absolute Eosinophils 0.1, Absolute Basophils 0, PUBS MCHC 33.7 Microbiology 11/06 1828 BLOOD: Blood Culture - RES Assessment/Plan Assessment: This is a 75-year-old female with past medical history of hypertension , GERD, hyperlipidemia, ischemic heart disease status post stent placement and quadruple bypass on coumadin, mixed connective tissue disease, history of multiple frequent urinary tract infections, nephrolithiasis,anxiety, depression came in today on 11/06/2016 for further evaluation after renal aspiration that occurred yesterday with chief complain of vomiting and diarrhea with bright red blood present in both and worsening lower lumbar abdominal pain since today morning. Assessment and plan #UTI Patient presented with leukocytosis, dysuria, UA suggestive of UTI. Leukocytosis currently downtrending patient is afebrile today. Also in the setting of recent instrumentation, will coontinue ceftriaxone and will also follow up on the pending urine culture and blood cultures. # Renal Cyst drainage urology consult. Dr Prieto has been followign her as OP. She is s/p drainage of renal cyst. #Decrease hemoglobin hematocrit This is most likely secondary to hemodilution as patient is currently not endorsing any acute bleed and she is guaiac negative. We'll continue to trend CBC and also repeat stool guaiac. # Left lower lumbar back pain Most likely 2/2 to renal cyst and could be worst after drainage ? complication. Patint is allergic to many pain medications. Will do tyelnol for mild to moderate pain If pain very severe then low dose 0.2 nd iv dilaudid high dose of dilaudid is not tolerable and if strat to vomit. PRN zofran for nausea/ vomting. # CAD s/p bypass. Ct asprin Patient is on coumadin. however was not dosed coumadin for last 5 days as she was going for drainage of renal cyst whic hwas done yesterday. Await urology recommendation on whether it's okay to restart coumadin. DVT PX : DCD and placed on ALPS FC Regular diet. Problem List: 1. Urinary tract infection Pain Ratin Pain Location: back Pain Goal: Pain 4 or less Pain Plan: APAP for mild pain Low dose hydromorphone Tomorrow's Labs & Rationales: CBC DARIUS IZAGUIRRE MD 11/07/16 1252: Attending MD Review Statement Attending Statement Attending MD Statement: examined this patient, discuss w/resident/PA/OYSTER GROWER, agreed w/resident/PA/OYSTER GROWER, reviewed EMR data (avail), discussed with nursing, discussed with case mgmt, reviewed images, amended to note Attending Assessment/Plan: Patient seen and examined, feels overall better. Did not have any further vomiting or any blood in the vomiting or diarrhea. Vital Signs Date Time Temp Pulse Resp B/P Pulse O2 O2 Flow FiO2 Ox Delivery Rate 11/07 0617 97.9 63 20 128/60 99 Room Air 11/06 2205 98.7 52 20 132/64 98 Room Air / 2205 98.7 52 20 132/64 98 Room Air 02/ 1905 98.5 60 18 118/56 98 Room Air 02/03 1905 98.5 60 18 118/56 98 Room Air / 1531 97.8 52 20 130/60 91 Room Air 02/03 1531 97.8 52 20 130/60 91 Room Air 02/ 1459 98.2 52 18 105/50 95 Room Air on exam; aox3, nad cv; s1, s2, rrr. resp; clear abd; soft, nt, bs+ ext; no edema Laboratory Tests 11/07 0640 Chemistry Sodium (137 - 145 mmol/L) 146 H Potassium (3.5 - 5.1 mmol/L) 3.8 Chloride (98 - 107 mmol/L) 110 H Carbon Dioxide (22 - 30 mmol/L) 26 Anion Gap (5 - 16) 9 BUN (7 - 17 mg/dL) 26 H Creatinine (0.5 - 1.0 mg/dL) 1.0 Estimated GFR (>60 ml/min) 54 L BUN/Creatinine Ratio (7 - 25 %) 26.0 H Coagulation PT (9.4 - 12.5 SEC) 12.6 H INR (0.90 - 1.19) 1.20 H Hematology CBC w Diff NO MAN DIFF REQ WBC (4.8 - 10.8 /CUMM) 5.6 RBC (4.20 - 5.40 /CUMM) 3.93 L Hgb (12.0 - 16.0 G/DL) 11.4 L Hct (37 - 47 %) 33.8 L MCV (81.0 - 99.0 FL) 86.0 MCH (27.0 - 31.0 PG) 29.0 RDW (11.5 - 14.5 %) 13.9 Plt Count (130 - 400 /CUMM) 174 MPV (7.4 - 10.4 FL) 10.2 Gran % (42.2 - 75.2 %) 49.8 Lymphocytes % (20.5 - 51.1 %) 39.0 Monocytes % (1.7 - 9.3 %) 8.4 Eosinophils % (0 - 5 %) 2.3 Basophils % (0.0 - 2.0 %) 0.5 Absolute Granulocytes (1.4 - 6.5 /CUMM) 2.8 Absolute Lymphocytes (1.2 - 3.4 /CUMM) 2.2 Absolute Monocytes (0.10 - 0.60 /CUMM) 0.5 Absolute Eosinophils (0.0 - 0.7 /CUMM) 0.1 Absolute Basophils (0.0 - 0.2 /CUMM) 0 PUBS MCHC (33.0 - 37.0 G/DL) 33.7 A/P; 75 y/o F with pmh sig for hypertension, GERD, hyperlipidemia, ischemic heart disease status post stent placement and quadruple bypass on coumadin, mixed connective tissue disease, history of multiple frequent urinary tract infections, nephrolithiasis, anxiety, depression, recent renal cyst removal by Dr. Prieto who was admitted yesterday with vomiting and diarrhea which she claims that it was bloody. Patient also had lower abdominal pain on admission. In the emergency room as noted, her guaiac stool was negative. Patient also found to have a possible urinary tract infection. Patient is started on ceftriaxone, follow up the urine culture. Please order stool for guaiac as well. Monitor H&H, there is a drop in H&H but it could be dilutional as all the cell lines dropped. Continue other current medications. DVT prophylaxis: Please DC hep sq and start the patient on ALPS.
[2016-11-07 08:24] LABS: ABSOLUTE BASOPHIL COUNT 0 /CUMM (0.0-0.2); ABSOLUTE EOSINOPHIL COUNT 0.1 /CUMM (0.0-0.7); ABSOLUTE GRANULOCYTE CT 2.8 /CUMM (1.4-6.5); ABSOLUTE LYMPH COUNT 2.2 /CUMM (1.2-3.4); ABSOLUTE MONOCYTE COUNT 0.5 /CUMM (0.10-0.60); BASOPHIL % 0.5 % (0.0-2.0); EOSINOPHIL % 2.3 % (0-5); GRANULOCYTE % 49.8 % (42.2-75.2); MEAN CORPUSCULAR HGB CONC 33.7 G/DL (33.0-37.0); MEAN PLATELET VOLUME 10.2 FL (7.4-10.4); PLATELET COUNT 174 /CUMM (130-400); RBC DISTRIBUTION WIDTH 13.9 % (11.5-14.5); RED BLOOD CELL CT 3.93 /CUMM (4.20-5.40)
[2016-11-07 09:06] LABS: PT 12.6 SEC (9.4-12.5)
[2016-11-07 09:28] LABS: HEMATOCRIT 33.8 % (37-47); WHITE BLOOD CELL COUNT 5.6 /CUMM (4.8-10.8)
[2016-11-07 14:18] VITALS: BP 128/72
[2016-11-07 22:47] VITALS: BP 164/60
[2016-11-08 06:59] VITALS: BP 140/70
--- NOTE | 2016-11-08 08:03 | PN- Housestaff ---
See Addendum Subjective Follow-up For: UTI Intractable LBP Subjective: Patient seen and examined this AM. She continues to endorse low back "Kidney" pain, L>R. She also endorses dysuria without hematuria. She reports her appetite has been well and she is waiting for Dr. Prieto to see her this AM. Review of Systems Constitutional: Denies: chills, fever, malaise. EENTM: Denies: blurred vision, visual changes, hearing changes. Cardiovascular: Denies: chest pain, palpitations. Respiratory: Denies: cough, short of breath. Gastrointestinal: Denies: abdominal pain, bloating, constipation, diarrhea, nausea. Genitourinary: Reports: dysuria. Denies: hematuria. Musculoskeletal: Reports: back pain. Skin: Denies: change in skin color, change in hair/nails. Neurological/Psychological: Denies: confusion, headache. Hematologic/Endocrine: Denies: bruising, bleeding. Objective Last 24 Hrs of Vital Signs/I&O Vital Signs Date Time Temp Pulse Resp B/P Pulse O2 O2 Flow FiO2 Ox Delivery Rate 11/08 0659 98.2 57 20 140/70 98 Room Air 11/07 2247 97.4 54 20 164/60 99 Room Air 11/07 1418 97.2 60 20 128/72 98 Intake & Output 11/08 1600 11/08 0800 11/08 0000 Intake Total 120 800 Output Total 200 Balance -80 800 Intake, Oral 120 800 Output, Urine 200 Physical Exam General Appearance: Alert, Oriented X3, Cooperative, No Acute Distress Skin: No Rashes HEENT: Atraumatic, PERRLA, Mucous Membr. moist/pink Neck: Supple, No JVD, No thryomegaly Lymphatic: Cervical nl Cardiovascular: Regular Rate, Normal S1, Normal S2, No Murmurs Lungs: Clear to Auscultation, Normal Air Movement Abdomen: Normal Bowel Sounds, Soft, No Tenderness, +CVA tenderness on the left, no CVA tenderness noted on the right. Neurological: Normal Gait, Normal Speech, Normal Tone Extremities: No Clubbing, No Cyanosis, No Edema, Normal Pulses Vascular: Pulses Symmetrical Current Medications: Current Medications Sig/Cassie Start time Last Medication Dose Route Stop Time Status Admin Acetaminophen 650 MG Q6 11/06 1800 AC 11/08 PO 0622 Atorvastatin Calcium 20 MG DAILY 11/06 1806 AC 11/08 PO 0924 Ceftriaxone Sodium 1,000 MG DAILY@1800 11/06 1800 AC 11/07 IV 1700 Fenofibrate 145 MG DAILY 11/06 1804 AC 11/08 PO 0924 Heparin Sodium 5,000 UNIT Q8 11/06 1653 DC 11/07 (Porcine) SC 0625 Hydrochlorothiazide 12.5 MG DAILY 11/06 1804 AC 11/08 PO 0925 Hydromorphone HCl 0.2 MG Q6-PRN PRN 11/06 1730 AC 11/07 IV 1145 Levothyroxine Sodium 0.088 MG DAILY AC 11/06 1805 AC 11/08 PO 0621 Last 24 Hrs of Lab/Keshawn Results Last 24 Hrs of Labs/Mics: Laboratory Tests 11/08/16 0640: Anion Gap 8, Estimated GFR 54 L, BUN/Creatinine Ratio 25.0, PT 12.6 H, INR 1.20 H, CBC w Diff NO MAN DIFF REQ, RBC 3.79 L, MCV 85.9, MCH 28.7, RDW 13.8, MPV 9.9, Gran % 54.0, Lymphocytes % 33.8, Monocytes % 8.8, Eosinophils % 2.9, Basophils % 0.5, Absolute Granulocytes 2.9, Absolute Lymphocytes 1.8, Absolute Monocytes 0.5, Absolute Eosinophils 0.2, Absolute Basophils 0, PUBS MCHC 33.5 Orders Radiology Findings: EXAMINATION: CT ABDOMEN AND PELVIS WITHOUT CONTRAST CLINICAL INFORMATION: Left flank pain. COMPARISON: Multiple CT abdomen and pelvis most recent prior dated 06/25/2016 TECHNIQUE: Multidetector volumetric imaging was performed from the superior aspect of the liver through the pubic symphysis. Sagittal and coronal reformatted images were obtained on the technologist's workstation. DLP: 274.76 mGy-cm. FINDINGS: LUNG BASES: Subtle pulmonary nodule noted in the right base measuring approximately 0.4 cm has remained stable since 04/17/2015. Dependent atelectatic changes. Previously identified nodular opacity right posterior base is less well-visualized on the current examination. Pleural-based atelectatic changes bilateral bases. LIVER, GALLBLADDER, AND BILIARY TREE: The liver is normal in size, shape, and attenuation. No focal hepatic lesion or biliary ductal dilatation is present. Nonvisualization of the gallbladder. Stable prominence of the CBD measuring approximately 0.7 cm likely representing a postcholecystectomy change. PANCREAS: Unremarkable. SPLEEN: Unremarkable. ADRENAL GLANDS: Unremarkable. KIDNEYS AND URETERS: No evidence of renal stones. Stable minor fullness of the renal pelvis noted bilaterally. No obstructing calculi identified. Cortical infarct/indentation along the medial aspect left renal cortex. Previously identified low-attenuation lesion medial aspect left renal cortex is no longer visualized. BLADDER: Unremarkable. GASTROINTESTINAL TRACT: Incomplete distention of the stomach limiting the evaluation of the gastric wall. Small hiatal hernia. No acute bowel pathology. Evaluation of the bowel wall is limited due to incomplete distention notably sigmoid colon and rectum. No evidence of bowel obstruction. Minor diverticulosis. No evidence of acute diverticulitis., ABDOMINAL WALL: No significant hernia is appreciated. LYMPH NODES: No evidence of lymphadenopathy. VASCULAR: Atherosclerotic disease of the aorta and aortic branches. PELVIC VISCERA: Status post hysterectomy. No suspicious pelvic abnormality OSSEOUS STRUCTURES: Mild degenerative changes of the spine. No acute osseous abnormality. IMPRESSION: 1. Stable right lower lobe pulmonary nodule. Previously identified larger right lower lobe nodular opacity is less appreciated. Bibasilar atelectasis. 2. Mild fullness of bilateral renal collecting system without any gross hydronephrosis. No obstructing calculi. 3. No acute bowel pathology. 4. Cortical indentation and scarring noted in the medial aspect mid right kidney. Previously seen cortical lesion is no longer appreciated. Assessment/Plan Assessment: This is a 75-year-old female with past medical history of hypertension , GERD, hyperlipidemia, ischemic heart disease status post stent placement and quadruple bypass on coumadin, mixed connective tissue disease, history of multiple frequent urinary tract infections, nephrolithiasis,anxiety, depression came in on 11/06/2016 for further evaluation after renal aspiration that occurred ON 11/05/16 with chief complain of vomiting and diarrhea with bright red blood present in both and worsening lower lumbar abdominal pain since today morning. Assessment and plan #UTI Patient presented with leukocytosis, dysuria, UA suggestive of UTI. Leukocytosis currently downtrending patient is afebrile today. Also in the setting of recent instrumentation, will continue ceftriaxone and will also follow up on the pending urine culture and blood cultures. Urine culture pending , blood culture shows no growth to date. Tmax 98.7. # Renal Cyst drainage Urology consult placed, f/u recommendations. Dr Prieto has been following her as OP. She is s/p drainage of renal cyst. Monitor CBC as H&H dropping and patient is post op. #Decrease hemoglobin hematocrit This is most likely secondary to hemodilution as patient is currently not endorsing any acute bleed and she is guaiac negative. We'll continue to trend CBC and also repeat stool guaiac. # Left lower lumbar back pain Most likely 2/2 to renal cyst and could be worst after drainage ? complication. Patient is allergic to many pain medications. Will do tyelnol for mild to moderate pain If pain very severe then low dose 0.2 nd iv dilaudid high dose of dilaudid is not tolerable and if vomiting. PRN zofran for nausea/ vomting. # CAD s/p bypass. Continue asprin daily Patient is on coumadin. However, was not dosed for last 5 days as she was going for drainage of renal cyst. INR this AM 1.2. Await urology recommendation on whether it's okay to restart coumadin. DVT PX : DC'd heparin and placed on ALPS FC Regular diet. Problem List: 1. Leukocytosis 2. Lactic acid acidosis 3. Flank pain, acute 4. Dysuria 5. Urinary tract infection Pain Ratin Pain Location: Left "kidney" Pain Goal: Pain 4 or less Pain Plan: APAP for mild pain Low dose hydromorphone Tomorrow's Labs & Rationales: CBC (dropping H&H), INR (on coumadin)
[2016-11-08 08:50] LABS: ABSOLUTE BASOPHIL COUNT 0 /CUMM (0.0-0.2); ABSOLUTE EOSINOPHIL COUNT 0.2 /CUMM (0.0-0.7); ABSOLUTE GRANULOCYTE CT 2.9 /CUMM (1.4-6.5); ABSOLUTE LYMPH COUNT 1.8 /CUMM (1.2-3.4); ABSOLUTE MONOCYTE COUNT 0.5 /CUMM (0.10-0.60); BASOPHIL % 0.5 % (0.0-2.0); EOSINOPHIL % 2.9 % (0-5); HEMATOCRIT 32.5 % (37-47); MEAN CORPUSCULAR HGB 28.7 PG (27.0-31.0); MEAN CORPUSCULAR HGB CONC 33.5 G/DL (33.0-37.0); MEAN CORPUSCULAR VOLUME 85.9 FL (81.0-99.0); MEAN PLATELET VOLUME 9.9 FL (7.4-10.4); PLATELET COUNT 175 /CUMM (130-400); RBC DISTRIBUTION WIDTH 13.8 % (11.5-14.5); RED BLOOD CELL CT 3.79 /CUMM (4.20-5.40); WHITE BLOOD CELL COUNT 5.4 /CUMM (4.8-10.8)
[2016-11-08 08:51] LABS: PT 12.6 SEC (9.4-12.5)
[2016-11-08 14:26] VITALS: BP 125/70
[2016-11-08 22:20] VITALS: BP 122/56
[2016-11-09 06:00] VITALS: BP 150/60
[2016-11-09 09:13] LABS: PT 12.8 SEC (9.4-12.5)
[2016-11-09 09:26] LABS: ABSOLUTE BASOPHIL COUNT 0 /CUMM (0.0-0.2); ABSOLUTE EOSINOPHIL COUNT 0.2 /CUMM (0.0-0.7); ABSOLUTE GRANULOCYTE CT 3.5 /CUMM (1.4-6.5); ABSOLUTE MONOCYTE COUNT 0.6 /CUMM (0.10-0.60); BASOPHIL % 0.4 % (0.0-2.0); EOSINOPHIL % 3.6 % (0-5); GRANULOCYTE % 55.9 % (42.2-75.2); HEMATOCRIT 34.2 % (37-47); MEAN CORPUSCULAR HGB CONC 33.8 G/DL (33.0-37.0); MEAN CORPUSCULAR VOLUME 85.8 FL (81.0-99.0); MEAN PLATELET VOLUME 9.7 FL (7.4-10.4); PLATELET COUNT 192 /CUMM (130-400); RBC DISTRIBUTION WIDTH 13.7 % (11.5-14.5); RED BLOOD CELL CT 3.98 /CUMM (4.20-5.40); WHITE BLOOD CELL COUNT 6.3 /CUMM (4.8-10.8)
--- NOTE | 2016-11-09 13:24 | PN- Housestaff ---
Subjective Follow-up For: back pain UTI Subjective: Pt is seen and examined at bedside. She still endorse back/flank pain L>R. She denies any chest pain,palpitation,shortness of breath,dizziness,vomiting, abdomminal pain or dysuria/hematuria. She is able to ambulate around the hospital floors without difficulties and is assisted by her . Review of Systems Constitutional: Denies: see HPI. Objective Last 24 Hrs of Vital Signs/I&O Vital Signs Date Time Temp Pulse Resp B/P Pulse O2 O2 Flow FiO2 Ox Delivery Rate 11/09 1410 98.8 62 20 140/80 98 11/09 0600 98.2 60 16 150/60 96 Room Air 11/08 2220 97.8 58 20 122/56 97 Room Air Intake & Output 11/09 1600 11/09 0800 11/09 0000 Intake Total 480 480 600 Output Total 475 Balance 5 480 600 Intake, IV 0 Intake, Oral 480 480 600 Output, Urine 475 Patient 51.71 kg Weight Physical Exam General Appearance: Alert, Oriented X3, Cooperative Skin: No Significant Lesion HEENT: Atraumatic, PERRLA, EOMI, Mucous Membr. moist/pink Neck: Supple, No JVD Lymphatic: Cervical nl Cardiovascular: Regular Rate, Normal S1, Normal S2 Lungs: Clear to Auscultation, Normal Air Movement Abdomen: Normal Bowel Sounds, Soft Neurological: Normal Speech, Normal Tone, Sensation Intact Extremities: No Edema, Normal Pulses, No Tenderness/Swelling Current Medications: Current Medications Sig/Cassie Start time Last Medication Dose Route Stop Time Status Admin Acetaminophen 650 MG .STK-MED ONE 11/09 0020 DC PO 11/09 0021 Acetaminophen 650 MG Q6 11/06 1800 AC 11/09 PO 1720 Atorvastatin Calcium 20 MG DAILY 11/06 180 AC 11/09 PO 0823 Ceftriaxone Sodium 1,000 MG DAILY@1800 11/06 1800 AC 11/09 IV 1720 Docusate Sodium 100 MG DAILY NEEDED PRN 11/08 1500 AC PO Fenofibrate 145 MG DAILY 11/06 180 AC 11/09 PO 0823 Hydrochlorothiazide 12.5 MG DAILY 11/06 180 AC 11/09 PO 0823 Hydromorphone HCl 0.2 MG Q6-PRN PRN 11/06 1730 AC 11/09 IV 1440 Levothyroxine Sodium 0.088 MG DAILY AC 11/06 1805 AC 11/09 PO 0522 Ondansetron HCl 4 MG ONCE PRN 11/09 2200 AC IV Ondansetron HCl 4 MG .STK-MED ONE 11/09 1543 DC IV 11/09 1544 Ondansetron HCl 4 MG ONCE ONE 11/09 0845 DC 11/09 IV 11/09 0846 0835 Patient Medication 1 UNIT 1700 11/09 1700 MO 11/09 Teaching ED 11/09 1701 1721 Patient Medication 1 ED .STK-MED ONE 11/09 1408 [facility] ED 11/09 1409 Polyethylene Glycol 17 GM DAILY 11/08 1457 AC 11/09 PO 0823 Senna 187 MG AT BEDTIME PRN 11/08 1500 AC 11/09 PO 0824 Warfarin Sodium 5 MG COUMADIN 1700 11/09 1700 AC 11/09 PO 11/09 2359 1721 Last 24 Hrs of Lab/Keshawn Results Last 24 Hrs of Labs/Mics: Laboratory Tests 11/09/16 0800: PT 12.8 H, INR 1.22 H, CBC w Diff NO MAN DIFF REQ, RBC 3.98 L, MCV 85.8, MCH 29.0, RDW 13.7, MPV 9.7, Gran % 55.9, Lymphocytes % 30.9, Monocytes % 9.2, Eosinophils % 3.6, Basophils % 0.4, Absolute Granulocytes 3.5, Absolute Lymphocytes 2.0, Absolute Monocytes 0.6, Absolute Eosinophils 0.2, Absolute Basophils 0, PUBS MCHC 33.8 Assessment/Plan Assessment: This is a 75-year-old female with past medical history of hypertension , GERD, hyperlipidemia, ischemic heart disease status post stent placement and quadruple bypass on coumadin, mixed connective tissue disease, history of multiple frequent urinary tract infections, nephrolithiasis,anxiety, depression came in on 11/06/2016 for further evaluation after renal aspiration that occurred ON 11/05/16 with chief complain of vomiting and diarrhea with bright red blood present in both and worsening lower lumbar abdominal pain since today morning. Assessment and plan #UTI Patient presented with leukocytosis, dysuria, UA suggestive of UTI. Leukocytosis currently downtrending patient is afebrile today. Also in the setting of recent instrumentation, will continue ceftriaxone and will also follow up on the pending urine culture and blood cultures. Urine culture pending , blood culture shows no growth to date. Day 3 ABX, will transtion patient to cephalexin 500mg bid on discharge for 4 days to complete a 7 day course # Renal Cyst drainage Urology consult placed, f/u recommendations. spoke to Dr Prieto, who indicated no change in management and ok with restarting warfarin. #Decrease hemoglobin hematocrit This is most likely secondary to hemodilution as patient is currently not endorsing any acute bleed and she is guaiac negative. H&H stable above 8. Will give [facility] GI referral on discharge. # Left lower lumbar back pain Most likely 2/2 to renal cyst and could be worst after drainage ? complication. Patient is allergic to many pain medications. Will do tyelnol for mild to moderate pain If pain very severe then low dose 0.2 nd iv dilaudid high dose of dilaudid is not tolerable and if vomiting. PRN zofran for nausea/ vomting. # CAD s/p bypass. Continue asprin daily Patient is on coumadin. restarted coumadin 5 mg today. DVT PX : DC'd heparin and placed on ALPS FC Regular diet. Problem List: 1. Urinary tract infection Pain Ratin Pain Location: back flanks b/l Pain Goal: Pain 4 or less Pain Plan: apap for mild pain hydromorphome for moderate to sever Tomorrow's Labs & Rationales: none-discharge pending
[2016-11-09] MEDS ORDERED: CEPHALEXIN500 M3 PO ×2 (13:55→14:14)
[2016-11-09] MEDS ORDERED: LEVOTHYROXINE75 MCG PO (13:59)
--- NOTE | 2016-11-09 14:06 | Patient Discharge Instructions ---
Psych Discharge Inst General Discharge Information You were seen/treated for: Urinary Tract Infection Diet Recommended Diet: heart healthy Activity Full Activity/No Limits: Yes (as tolerated) Activity Full Activity/No Limits: Yes (as tolerated)
[2016-11-09 14:10] VITALS: BP 140/80
--- NOTE | 2016-11-09 16:11 | PN- Att Addend ---
Attending MD Review Statement Attending Statement Attending MD Statement: examined this patient, discuss w/resident/PA/TMD TEACHER, agreed w/resident/PA/TMD TEACHER, reviewed EMR data (avail), discussed w/nursing, discussed w/ case mgmt Attending Assessment/Plan: UTI - cont ceftriaxone and will dc on po keflex. Will need outpt GI follow up. Suppressed TSH to 0.02, will decrease levothyroxine to 75 mcg qd. hb stable. possible dc tomorrow.
[2016-11-09 23:18] VITALS: BP 120/60
[2016-11-10 06:23] VITALS: BP 134/72
--- NOTE | 2016-11-10 06:36 | NUR ---
PT REPORTS KIDNEY BURNING AND DOES NOT FEEL LIKE SHE IS GETTING BETTER. THIS WAS REPORTED AT END OF SHIFT- PASSED ON TO NEXT RN.
--- NOTE | 2016-11-10 07:49 | NUR ---
PT C/O 910 BURNING KIDNEY PAIN, PT NOT DUE FOR MORE PAIN MEDS, SEE MARGO. AT BEDSIDE TO ASSESS PT
[2016-11-10 08:00] VITALS: BP 130/80
[2016-11-10] MEDS ORDERED: CEPHALEXIN500 M3 PO (08:01)
[2016-11-10] MEDS ORDERED: DILAUDID2 M1 PO (08:01)
--- NOTE | 2016-11-10 08:06 | Patient Discharge Instructions ---
Discharge Instructions General Discharge Information You were seen/treated for: Urinary Tract Infection Special Instructions: PLEASE F/U WITH YOUR PRIMARY CARE IN 1 WEEK PLEASE FOLLOW UP WITH DR CARTAGENA WITHIN 1-2 DAYS PLEASE FOLLOW UP WITH THE STOMACH DOCTOR REFERRAL IN 1 WEEK Diet Recommended Diet: heart healthy Activity Full Activity/No Limits: Yes (as tolerated) Acute Coronary Syndrome Inclusion Criteria At DC or during hospital stay patient has or had the following: ACS DIAGNOSIS No Discharge Core Measures Meds if any: Prescribed or Continued at Discharge Meds if any: NOT Prescribed or Continued at Discharge Congestive Heart Failure Inclusion Criteria At DC or during hospital stay patient has or had the following: CHF DIAGNOSIS No Discharge Core Measures Meds if any: Prescribed or Continued at Discharge Meds if any: NOT Prescribed or Continued at Discharge Cerebrovascular accident Inclusion Criteria At DC or during hospital stay patient has or had the following: CVA/TIA Diagnosis No Discharge Core Measures Meds if any: Prescribed or Continued at Discharge Meds if any: NOT Prescribed or Continued at Discharge Venous thromboembolism Inclusion Criteria VTE Diagnosis No VTE Type NONE VTE Confirmed by (Test) NONE Discharge Core Measures - Per Current guidelines, there needs to be overlap - treatment for the first 5 days of Warfarin therapy. - If discharged on Warfarin prior to 5 days of - overlap therapy, the patient will need to be - assessed for post discharge needs including - *Post discharge parental anticoagulation - *Warfarin and/or parental anticoagulation education - *Follow up date to check INR post discharge At least 5 days overlap therapy as Inpatient No Meds if any: Prescribed or Continued at Discharge Note: Overlap Therapy is Warfarin and Anticoagulant Meds if any: NOT Prescribed or Continued at Discharge
--- NOTE | 2016-11-10 08:28 | PN- Housestaff ---
Subjective Follow-up For: Back pain uti Subjective: Pt is seen and examined at bedside. She still endorse back/flank pain L>R. She denies any chest pain,palpitation,shortness of breath,dizziness,vomiting, abdomminal pain or dysuria/hematuria. She is able to ambulate around the hospital floors without difficulties and is assisted by her . She asked about her the position and is informed that she'll be discharged today with instructions to follow-up with Dr. Prieto. Review of Systems Constitutional: Reports: see HPI. Objective Last 24 Hrs of Vital Signs/I&O .. Physical Exam General Appearance: Alert, Oriented X3, Cooperative Assessment/Plan Assessment: This is a 75-year-old female with past medical history of hypertension , GERD, hyperlipidemia, ischemic heart disease status post stent placement and quadruple bypass on coumadin, mixed connective tissue disease, history of multiple frequent urinary tract infections, nephrolithiasis,anxiety, depression came in on 11/06/2016 for further evaluation after renal aspiration that occurred ON 11/05/16 with chief complain of vomiting and diarrhea with bright red blood present in both and worsening lower lumbar abdominal pain since today morning. Assessment and plan #UTI Patient presented with leukocytosis, dysuria, UA suggestive of UTI. Leukocytosis currently downtrending patient is afebrile today. Also in the setting of recent instrumentation, will continue ceftriaxone and will also follow up on the pending urine culture and blood cultures. Urine culture pending , blood culture shows no growth to date. Day 3 ABX, will transtion patient to cephalexin 500mg bid on discharge for 4 days to complete a 7 day course # Renal Cyst drainage Urology consult placed, f/u recommendations. spoke to Dr Prieto, who indicated no change in management and ok with restarting warfarin. #Decrease hemoglobin hematocrit This is most likely secondary to hemodilution as patient is currently not endorsing any acute bleed and she is guaiac negative. H&H stable above 8. Will give [facility] GI referral on discharge. # Left lower lumbar back pain Most likely 2/2 to renal cyst and could be worst after drainage ? complication. Patient is allergic to many pain medications. Will do tyelnol for mild to moderate pain If pain very severe then low dose 0.2 nd iv dilaudid high dose of dilaudid is not tolerable and if vomiting. PRN zofran for nausea/ vomting. # CAD s/p bypass. Continue asprin daily Patient is on coumadin. restarted coumadin 5 mg today. DVT PX : DC'd heparin and placed on ALPS FC Regular diet. Problem List: 1. Urinary tract infection 2. Flank pain, acute Pain Ratin Pain Location: Left and right back Pain Goal: Pain 4 or less Pain Plan: Dilaudid 4 moderate to severe pain Tomorrow's Labs & Rationales: None patient being discharged
[2016-11-10] MEDS ORDERED: ZOFRAN ODT4 M1 PO (10:33)
--- NOTE | 2016-11-10 11:50 | PN- Att Addend ---
Attending MD Review Statement Attending Statement Attending MD Statement: examined this patient, discuss w/resident/PA/OUTSIDE MACHINIST, agreed w/resident/PA/OUTSIDE MACHINIST, discussed with family, reviewed EMR data (avail) Attending Assessment/Plan: 75 yr old female admitted with hematuria post renal cyst drainage. UTI- dc today on po keflex Given pain meds for pain control. told pt to use stool softeners. ? GI bleed- but hb stayed stable. outpt GI referral for workup Hypothyroidism with suppressed TSH, decreased dose of levothyroxine. DC home today in stable condition. d/w pts at bedside the care plan.
--- NOTE | 2016-11-12 15:00 | Discharge Summary ---
Visit Information Visit Dates Admission Date: 11/06/16 Discharge Date: 11/10/16 Hospital Course Course Attending Physician: THERESA OSHEA,LETY Luis Primary Care Physician: YOMI MONTES MD Other Care Providers: Dr Prieto (urologist) Hospital Course: This is a 75 yo F PMH HTN, T2DM, GERD, HLD, ischemic heart disease s/p 4v-CABG on coumadin, history of multiple frequent urinary tract infections, nephrolithiasis, with right renal cyst drainage by IR on 11/05/2015 presenting on 11/06/2015 with intractable back pain, loose stools with bright red blood, and intractable vomiting with streaked blood. Patient reports her symptoms started 1 day after her left renal cyst drainage procedure. Pt denied any chills/fever. Vitals on presentation MAXIMUM TEMPERATURE of 98.4, pulse of 57, respiration of 16-20, blood pressure of 134/60, which came down to 105/50, was saturating 93-97 % on room air. PE: Abdomen: lower lumbar back tenderness, bandage present over the left renal cyst drainage , area with no drainage noted or erythema, positive b/l CVA tenderness. Remaining physical exam unremarkable. Relevant labs white count of 12.0, H/H of 13.0/39.3, platelet of 251. Electrolytes sodium of 142, potassium of 4.1, BUN and creatinine 27/1.1, estimated GFR of 48, glucose of 113, lactic acid of 2.8, AST 49, ALT 139, alkaline phosphatase 73. Troponin was negative less than 0.01. UA showed 10-15 WBCs, small leukocyte esterase, positive for nitrite. seocnd lactic acid came down to 1.2. CT Abdomen/Pelvis: 1. Stable right lower lobe pulmonary nodule. Previously identified larger right lower lobe nodular opacity is less appreciated. Bibasilar atelectasis. 2. Mild fullness of bilateral renal collecting system without any gross hydronephrosis. No obstructing calculi. 3. No acute bowel pathology. 4. Cortical indentation and scarring noted in the medial aspect mid right kidney. Previously seen cortical lesion is no longer appreciated. Her episodes of diarrhea with blood and vomitus with blood were transient and only happened once on the previous day before admission. Pt was then admitted to general medicine floor for treatment and management of suspected Urinary Tract Infection. Pt was empirically started on Ceftriaxone on day 1 of admission, Urine culture was positive for pansensitive E.coli. Patient symptoms of flank pain improved, leukocytosis resolved, and remained afebrile throughout the admission. Patient's urologist was consulted (Dr Prieto) who reccomended outpatinet follow up after discharge. Regarding her lower lumbar pain which was more prominet on the left, patient was managed on low dose hydromorphone 0.25mg prn. As she was PPD #1 of renal cyst drainage when she was admitted, her pain was considered to be secondary from the procedure. Patient was discharged on day 5 (she was cleared on day 4, however due to transportation logistics, she requested to be discharged the next day when her can pick her up). Since she had received 4 day ABX treatment, she was discharged with Cephalexin 500 mg po bid for 3 days to complete a 7 days course treatment. Allergies: Coded Allergies: darifenacin (Severe, UNKNOWN 11/29/15) lidocaine (Severe, RASH 11/29/15) nifedipine (Severe, UNKNOWN 11/29/15) phenobarbital (Severe, UNKNOWN 11/29/15) prednisolone (Severe, RASH 11/29/15) morphine (Mild, NAUSEA 11/29/15) Sulfa (Sulfonamide Antibiotics) (UNKNOWN 11/29/15) amitriptyline (RASH 11/29/15) aspirin (UNKNOWN 11/29/15) celecoxib (From CELEBREX) (UNKNOWN 11/29/15) clopidogrel (UNKNOWN 11/29/15) diclofenac (From VOLTAREN) (RASH 11/29/15) ezetimibe (UNKNOWN 11/29/15) fluoxetine (From PROZAC) (N/V 11/29/15) metoclopramide (UNKNOWN 11/29/15) nitrofurantoin (PAIN, TREMORS, N/V 11/29/15) ciprofloxacin (From CIPRO) (Severe, GI UPSET 11/29/15) Uncoded Allergies: ALL NASAL SPRAYS (Severe, UNKNOWN PER PT 04/17/15) Disposition Summary Disposition Principal Diagnosis: UTI Additional Diagnosis: Lower back pain Discharge Disposition: home or self care Discharge Instructions General Discharge Information Code Status: Full Code Patient's Diet: REGULAR Patient's Activity: TOLERATED Follow-Up Instructions/Appts: Pt is to follow up with Dr Prieto (within 2-3 days after discharge). Pt is to follow up with PCP within 1 week. Medications at Discharge Discharge Medications: Continue taking these medications: Sucralfate (Carafate) 1 GRAM/10 ML ORAL.SUSP 10 Milliliters ORAL THREE TIMES DAILY Qty = 900 Instructions: 1 hour before meals Comments: DID NOT RECEIVE Esomeprazole (Nexium) 40 MG CAPSULE.DR 1 Capsule ORAL TWICE DAILY Qty = 180 Comments: Last Taken:09/17/15 TimE 0700 PRILOSEC Metoprolol Tartrate (Lopressor) 25 MG TABLET 1 Tablet ORAL TWICE DAILY Qty = 180 Comments: LAST TAKEN 04/20 9:00 AM Hydrochlorothiazide (Hydrodiuril 12.5 MG Tab) 12.5 MG CAPSULE 1 Capsule ORAL DAILY Qty = 90 Comments: DID NOT RECEIVE Scopolamine Hydrobromide (Transderm-Scop) 1.5MG/3DAY PATCH.TD.3 1 Patch On the skin Every 3 days as needed for VERTIGO Instructions: apply to the hairless area behind 1 ear at least 4 hours before effect is required; reapply every 3 days as needed Comments: DID NOT RECEIVE Nitroglycerin (Nitrostat) 0.4 MG TAB.SUBL 1 Tablet SUBLINGUAL As Directed as needed for ANGINA Qty = 25 Instructions: DID NOT RECEIVE Comments: 1 TAB SL Q5MIN PRN MAX 3 TABS PER PT FENOFIBRATE NANOCRYSTALLIZED (Fenofibrate) 145 MG TABLET 1 Tablet ORAL DAILY Qty = 90 Comments: Last Taken:09/17/15 Time: 09/17/15 9:00 AM Multivitamin, Minerals, and (Centrum Silver) 1 TAB TAB 1 Tablet ORAL DAILY Comments: LAST TAKEN 09/17/15 9:00 AM Irbesartan (Irbesartan) 300 MG TAB 1 Tablet ORAL DAILY Rosuvastatin Calcium (Crestor) 20 MG TAB 20 Milligram ORAL DAILY Comments: Last Taken: Time: Warfarin Sodium (Coumadin) 5 MG TAB 5 Milligram ORAL DAILY Comments: TAKES 5MG AT HOME DAILY. WILL ADD ANOTHER 2MG DIRECTED DEPENDING ON INR LEVEL Calcium Carbonate (Calcium) 600 MG (1,500 MG) TABLET 1 Tablet ORAL TWICE DAILY Comments: Last Taken:NOT GIVEN IN HOSPITAL Time: Hyoscyamine (Levsin) 0.125 MG TABLET 1 Tablet ORAL TWICE DAILY Comments: Last Taken:NOT GIVEN IN HOSPITAL Time: Triamcinolone Acetonide (Triamcinolone Acetonide) 0.1 % CREAM..G. 1 Application On the skin TWICE DAILY Qty = 454 Comments: Last Taken:NOT GIVEN IN HOSPITAL Time: Enoxaparin Sodium (Enoxaparin Sodium) 80 MG/0.8 ML SYRINGE 40 Milligram Inject into fatty tissue TWICE DAILY Qty = 30 Comments: Last Taken:NOT GIVEN IN HOSPITAL Time: Start taking the following new medications: Cephalexin (Cephalexin) 500 MG CAPSULE 1 Tablet ORAL TWICE DAILY Qty = 6 No Refills Comments: Last Taken:NOT GIVEN IN HOSPITAL Time: Hydromorphone HCl (Dilaudid) 2 MG TABLET 0.5 Tablet ORAL EVERY 6 HOURS NEEDED as needed for PAIN CONTROL Qty = 6 No Refills Instructions: PLEASE TAKE 1/2 TABLET BY MOUTH Q 4-6 H PRN PAIN Comments: Last Taken:NOT GIVEN IN HOSPITAL Time: Ondansetron (Zofran Odt) 4 MG TAB.RAPDIS 1 Tablet ORAL EVERY 4-6 HOURS NEEDED as needed for NAUSEA/VOMITING Qty = 20 No Refills Comments: Last Taken:NOT GIVEN IN HOSPITAL Time: The following medications have been changed: Old: Levothyroxine Sodium (Levothyroxine Sodium) 0.088 MG TAB 1 Tablet ORAL DAILY BEFORE BREAKFAST Qty = 90 New: Levothyroxine Sodium (Levothyroxine Sodium) 75 MCG TABLET 1 Tablet ORAL DAILY Qty = 30 Comments: Last Taken:11/10/16 Time:0600 Copies To: JYOTI OSHEA,YOMI; OSIEL OSHEA,TRINH Attending Review Statement Documenting Attending: THERESA OSHEA,LETY Luis Other Findings: 75 yr old female admitted with hematuria post renal cyst drainage. UTI- dc today on po keflex Given pain meds for pain control. told pt to use stool softeners. ? GI bleed- but hb stayed stable. outpt GI referral for workup Hypothyroidism with suppressed TSH, decreased dose of levothyroxine. DC home today in stable condition. d/w pts at bedside the care plan.
== END 2016-11-10 14:00 | DRG 690 ==
LOC: ENRESERVDT → ENRESERVTM → ERH 08:30 → 2NA 12:59 → ERHI 12:59 → ENPENDDIS 12:59 → 2NA 12:59
PROVIDERS: Internal Medicine; Physician Assistant Medical; Student in an Organized Health Care Education/Training Program; ADMIT Internal Medicine
DX: N39.0 Urinary tract infection, site not specified (principal); M54.5 Low back pain; E87.2 Acidosis; E78.5 Hyperlipidemia, unspecified; G89.18 Other acute postprocedural pain; I25.2 Old myocardial infarction; K21.9 Gastro-esophageal reflux disease without esophagitis; I10 Essential (primary) hypertension; I73.00 Raynaud's syndrome without gangrene; I25.10 Atherosclerotic heart disease of native coronary artery without angina pectoris; R91.1 Solitary pulmonary nodule; Z87.891 Personal history of nicotine dependence; Z95.1 Presence of aortocoronary bypass graft
CPT/HCPCS: 2NASP; 74176; 81001; 82436; 87040; 87086; 88305; 93005; 93010; 96374; 96375; 96376; J0696; J1644; J2405

== ENCOUNTER 2017-09-28 21:05 | Emergency (ER) | payer OTHER, MEDICARE ==
[~2017-09-28] VITALS: Ht 162.6 cm; Wt 65.8 kg
[~2017-09-28 21:05] MED LIST changes: +AVAPRO300 M1 PO; +CALCIUM600 M2 PO; +CARAFATE1 GM/10 M1 PO; +CEPHALEXIN500 M3 PO; +CITALOPRAM HBR10 MG PO; +CRESTOR20 M2 PO; +DILAUDID2 M1 PO; +DONEPEZIL HCL5 MG PO; +ENOXAPARIN80 MG/0.2 SC; +FENOFIBRATE160 M1 PO; +HYDROCHLOROTH12.5 M3 PO; +LEVOTHYROXINE75 MCG PO; +LEVOTHYROXINE88 MCG PO; +LEVOXYL75 MCG PO; +LEVSIN0.125 M1 PO; +METOPROLOL SUCC25 M1 PO; +NAMENDA XR14 M1 PO; +NITROGLYCERIN0.4 M1 SL; +OXYCODONE HCL5 M1 PO; +PANTOPRAZOLE SO40 M1 PO; +PERCOCET 5-3251 EACH PO; +PHENAZOPYRIDIN100 M3 PO; +TRIAMCINOLONE A15 G1 TOP; +TYLENOL EXTRA500 M2 PO; +WARFARIN SODIUM4 M1 PO; +ZOFRAN ODT4 M1 PO
--- NOTE | 2017-09-28 22:43 | ED GI/GU/ABDOMINAL COMPLAINT ---
History of Present Illness General Chief Complaint: General Adult Stated Complaint: "I HAVE A BIG KIDNEY" Source: patient, family, old records Exam Limitations: no limitations Vital Signs & Intake/Output Vital Signs & Intake/Output Vital Signs Date Time Temp Pulse Resp B/P B/P Pulse O2 O2 Flow FiO2 Mean Ox Delivery Rate 09/289 97.1 68 18 144/62 99 Room Air ED Intake and Output 09/29 0000 09/28 1200 Intake Total Output Total Balance Patient 145 lb Weight Weight Reported by Patient Measurement Method Allergies Coded Allergies: darifenacin (Severe, UNKNOWN 11/29/15) lidocaine (Severe, RASH 11/29/15) nifedipine (Severe, UNKNOWN 11/29/15) phenobarbital (Severe, UNKNOWN 11/29/15) prednisolone (Severe, RASH 11/29/15) hydromorphone (From DILAUDID) (Intermediate, NAUSEA AND VERTIGO 08/22/17) Sulfa (Sulfonamide Antibiotics) (UNKNOWN 11/29/15) amitriptyline (RASH 11/29/15) aspirin (UNKNOWN 11/29/15) celecoxib (From CELEBREX) (UNKNOWN 11/29/15) clopidogrel (UNKNOWN 11/29/15) diclofenac (From VOLTAREN) (RASH 11/29/15) ezetimibe (UNKNOWN 11/29/15) fluoxetine (From PROZAC) (N/V 11/29/15) metoclopramide (UNKNOWN 11/29/15) nitrofurantoin (PAIN, TREMORS, N/V 11/29/15) ciprofloxacin (From CIPRO) (Severe, GI UPSET 11/29/15) Uncoded Allergies: ALL NASAL SPRAYS (Severe, UNKNOWN PER PT 04/17/15) Reconcile Medications Acetaminophen (Tylenol Extra Strength) 500 MG TABLET 1 TAB PO Q6P PRN Pain . Amoxicillin/Potassium Clav (Augmentin 875-125 Tablet) 875 MG-125 MG TABLET 1 TAB PO BID uti Citalopram Hydrobromide (Citalopram HBr) 10 MG TABLET 1 TAB PO DAILY MENTAL HEALTH (Reported) Donepezil HCl 5 MG TABLET 2 TAB PO DAILY DEMENTIA (Reported) Fenofibrate 160 MG TABLET 1 TAB PO DAILY CHOLESTEROL/TRIGLYCERIDES (Reported) Hydrochlorothiazide 12.5 MG CAPSULE 1 CAP PO DAILY HTN (Reported) Irbesartan (Avapro) 300 MG TABLET 1 TAB PO DAILY HEART (Reported) Levothyroxine Sodium (Levoxyl) 75 MCG TABLET 1 TAB PO DAILY THYROID (Reported ) Memantine HCl (Namenda XR) 14 MG CAP.SPR.24 1 CAP PO DAILY MENTAL HEALTH ( Reported) Metoprolol Succinate 25 MG TAB 0.5 TAB PO BID HTN (Reported) Nitroglycerin 0.4 MG TAB.SUBL 1 TAB SL AD PRN CHEST PAIN (Reported) 1st sign of attack; may repeat every 5 minutes until relief; if pain persists after 3 tablets in 15 minutes, prompt medical att Oxycodone HCl/Acetaminophen (Percocet 5-325 MG Tablet) 5 MG-325 MG TABLET 1-2 TAB PO Q6P PRN pain Oxycodone HCl/Acetaminophen (Percocet 5-325 MG Tablet) 5 MG-325 MG TABLET 1 TAB PO BID PRN pain Pantoprazole Sodium 40 MG TABLET.DR 1 TAB PO DAILY GI (Reported) Rosuvastatin Calcium (Crestor) 20 MG TABLET 1 TAB PO DAILY HEART HEALTH ( Reported) Sucralfate (Carafate) 1 GRAM/10 ML ORAL.SUSP 10 ML PO TID GI (Reported) 1 hour before food and bedtime Warfarin Sodium 4 MG TABLET 0.5 TAB PO DAILY BLD THINNER (Reported) Triage Note: PT TO ED C/O LEFT FLANK PAIN AND PAIN WITH URINATION SINCE THIS AFTERNOON. Triage Nurses Notes Reviewed? yes ? N Is pt currently ? No Onset: Gradual Duration: day(s): Timing: recent history Quality/Severity: severe Severity Numbers: 10 Location: left flank, right flank Radiation: LLQ Prior Abdominal Problems: similar symptoms HPI: 76yo female with hx of kidney cyts, fibromyalgia, Alzheimer's dz presents to ED complaining of pain cyst in kidney. Patient complaining of pain in bilateral flank areas, worse on left side. Left-sided pain radiates toward left abdomen. Pain is described as severe, burning, pressure. Patient also reporting burning with urination. Patient states that pain feels similar to prior kidney cysts. Patient denies diarrhea, constipation, fevers, chills, nausea, vomiting. Patient's daughter reports that patient had a recent Alzheimer's diagnosis within the past few months, patient is unaware of current Alzheimer's diagnosis. Patient's daughter states that she has had prior kidney cysts drained by Dr. Prieto, upon last visit Dr. Prieto reported that pain is unlikely related to renal cysts. (Ericka Romero) Past History Travel History Traveled to [place] past 21 day No Medical History Any Pertinent Medical History? 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 No (Ericka Romero) Review of Systems Review of Systems Constitutional: Reports: no symptoms. EENTM: Reports: no symptoms. Respiratory: Reports: no symptoms. Cardiovascular: Reports: no symptoms. GI: Reports: see HPI. Genitourinary: Reports: see HPI. Musculoskeletal: Reports: no symptoms. Skin: Reports: no symptoms. Neurological/Psychological: Reports: no symptoms. Hematologic/Endocrine: Reports: no symptoms. Immunologic/Allergic: Reports: no symptoms. All Other Systems: Reviewed and Negative (Ericka Romero) Physical Exam Physical Exam General Appearance: well developed/nourished, no apparent distress, alert, awake Head: atraumatic, normal appearance Eyes: Bilateral: normal appearance. Ears, Nose, Throat, Mouth: hearing grossly normal Neck: normal inspection, supple, full range of motion Respiratory: normal breath sounds, no respiratory distress, lungs clear Cardiovascular: regular rate/rhythm Gastrointestinal: normal bowel sounds, soft, no organomegaly, mild LUQ and LLQ tenderness without gaurding or rebound Back: normal inspection, normal range of motion, no CVA tenderness Extremities: normal range of motion Neurologic/Psych: awake, alert, oriented x 3 Skin: intact, normal color, warm/dry Core Measures ACS in differential dx? No Sepsis Present: No Sepsis Focused Exam Completed? No (Massiel LBAOY,Ericka Ribera) Progress Differential Diagnosis: bowel obstruction, cholecystitis, diverticulitis, gastritis, kidney stone, ovarian cyst, ovarian torsion, pancreatitis, peptic ulcer, SBO, UTI/pyelo Plan of Care: Orders Procedure Date/time Status XRY-CHEST XRAY, PA AND LATERAL 09/29 35 Active URINALYSIS 09/28 2147 Complete Current Medications Sig/Cassie Start time Last Medication Dose Stop Time Status Admin Oxycodone/ 1 TAB ONCE ONE 09/29 45 UNVr Acetaminophen 09/29 0046 (Percocet) Laboratory Tests 09/28/17 2258: Sodium Cancelled, Potassium Cancelled, Chloride Cancelled, Carbon Dioxide Cancelled, Anion Gap Cancelled, BUN Cancelled, Creatinine Cancelled, BUN/ Creatinine Ratio Cancelled, Glucose Cancelled, Calcium Cancelled, Total Bilirubin Cancelled, AST Cancelled, ALT Cancelled, Alkaline Phosphatase Cancelled, Total Protein Cancelled, Albumin Cancelled, Globulin Cancelled, Albumin/Globulin Ratio Cancelled, CBC w Diff Cancelled, WBC Cancelled, RBC Cancelled, Hgb Cancelled, Hct Cancelled, MCV Cancelled, MCH Cancelled, RDW Cancelled, Plt Count Cancelled, MPV Cancelled, PUBS MCHC Cancelled 09/28/17 2214: Urinalysis LIGHT H, Urine Color YEL, Urine Clarity CLEAR, Urine pH 6.0, Ur Specific Kila 1.020, Urine Protein NEG, Urine Ketones NEG, Urine Nitrite NEG, Urine Bilirubin NEG, Urine Urobilinogen 0.2, Ur Leukocyte Esterase MOD H, Ur Microscopic SEDIMENT EXAMINED, Urine WBC 5-10 H, Ur Epithelial Cells FEW, Urine Hemoglobin NEG, Urine Glucose NEG Microbiology 09/29 35 BLOOD: Blood Culture - CAN Cancelled: Cancelled via OE: Per MD Decision 09/29 35 BLOOD: Blood Culture - CAN Cancelled: Cancelled via OE: Per MD Decision Patient has had two prior CT abd/pelvic with IV contrast within the past month which showed renal cysts. Urologist has reported that patient's pain is not likely related to the cysts. Her urologist is also informed the family that they will no longer be draining the cysts. Patient seems sleeping in stretcher while waiting for test results. UA shows likely UTI. Patient treated with antibiotics accordingly. Several were made to obtain blood work however no tubes could be drawn. Family wishes to go home prior to having further attempts at blood work. Patient with moist mucous membranes, no tenting of skin, low suspicion for severe dehydration. Patient to take pain medication and return with worsening symptoms or other concerns. Patient and family agree with the plan of care. Dr. Butts agrees with the plan of care. Initial ED EKG: none (Ericka Romero) Departure Departure Disposition: HOME OR SELF CARE Condition: Stable Clinical Impression Primary Impression: UTI (urinary tract infection) Qualifiers: Urinary tract infection type: acute cystitis Hematuria presence: without hematuria Qualified Code: N30.00 - Acute cystitis without hematuria Secondary Impressions: Flank pain, Renal cyst Referrals: Edmond Hamilton MD (PCP/Family) Additional Instructions: Begin antibiotics tonight. Take Percocet as prescribed as needed for pain. Follow-up with your primary care physician. Also follow-up with your urologist. Return to emergency department any worsening symptoms or other concerns. Please note that there might be incidental findings in your evaluation that are unrelated to the current emergency department visit. Please notify your primary care doctor about this emergency department visit in order to obtain and review all of the testing performed so that these incidental findings can be monitored as needed. If you had an x-ray performed, please understand that some fractures may not be seen on the initial set of x-rays. If your symptoms persist you might need a repeat set of x-rays to check for such a fracture. If you had a laceration evaluated, please understand that foreign bodies such as glass or wood may not be visible to the naked eye or on plain x-rays. If the wound becomes red, swollen, increasingly more painful or if there is any drainage from the wound, please have it reevaluated by a physician for the possibility of a retained foreign body. If you're unable to follow up as outlined in the discharge instructions please return to the emergency department. Thank you for choosing the [facility] Emergency Department for your care. It was a pleasure to serve you today. Departure Forms: Customer Survey General Discharge Information Prescriptions: Current Visit Scripts Amoxicillin/Potassium Clav (Augmentin 875-125 Tablet) 1 TAB PO BID #14 TAB Oxycodone HCl/Acetaminophen (Percocet 5-325 MG Tablet) 1 TAB PO BID PRN pain #10 TAB (Ericka Romero) PA/CHARGE HAND Co-Sign Statement Statement: ED Attending supervision documentation- [X] I saw and evaluated the patient. I have also reviewed all the pertinent lab results and diagnostic results. I agree with the findings and the plan of care as documented in the PA's/CHARGE HAND's documentation. [X] I have reviewed the ED Record and agree with the PA's/CHARGE HAND's documentation. [] Additions or exceptions (if any) to the PAs/CHARGE HAND's note and plan are summarized below: [] (Benjamín OSHEA,Adonay Onofre)
[2017-09-28] MEDS ORDERED: PERCOCET 5-3251 EACH PO (23:58)
[2017-09-28] MEDS ORDERED: AUGMENTIN 875-1 EACH PO (23:58)
[2017-09-29 00:58] VITALS: BP 154/65
== END 2017-09-29 00:56 ==
LOC: ERH 21:05
DX: N39.0 Urinary tract infection, site not specified (principal); N28.1 Cyst of kidney, acquired
CPT/HCPCS: 81001; 87040

== ENCOUNTER 2017-10-04 13:30 | Inpatient (IN) | payer OTHER, MEDICARE ==
[~2017-10-04] VITALS: Ht 162.6 cm; Wt 65.5 kg
[~2017-10-04 13:30] MED LIST changes: +AUGMENTIN 875-1 EACH PO
--- NOTE | 2017-10-04 15:12 | ED GENERAL ADULT ---
History of Present Illness General Chief Complaint: Abdominal Pain/Flank Pain Stated Complaint: FLANK PAIN Source: patient, family, old records Exam Limitations: poor historian Vital Signs & Intake/Output Vital Signs & Intake/Output Vital Signs Date Time Temp Pulse Resp B/P B/P Pulse O2 O2 Flow FiO2 Mean Ox Delivery Rate 10/06 0942 98.0 80 19 138/64 99 Room Air 10/06 0631 98.4 77 18 143/53 98 10/06 0109 98.3 52 18 123/59 97 Room Air 10/05 2123 98.2 51 18 139/61 100 Room Air 10/05 1911 97.5 66 18 156/67 99 Room Air 10/05 1738 98.1 66 17 159/69 96 Room Air 10/05 1410 98.0 85 18 164/75 96 Room Air Allergies Coded Allergies: darifenacin (Severe, UNKNOWN 11/29/15) lidocaine (Severe, RASH 11/29/15) nifedipine (Severe, UNKNOWN 11/29/15) phenobarbital (Severe, UNKNOWN 11/29/15) prednisolone (Severe, RASH 11/29/15) hydromorphone (From DILAUDID) (Intermediate, NAUSEA AND VERTIGO 08/22/17) Sulfa (Sulfonamide Antibiotics) (UNKNOWN 11/29/15) amitriptyline (RASH 11/29/15) aspirin (UNKNOWN 11/29/15) celecoxib (From CELEBREX) (UNKNOWN 11/29/15) clopidogrel (UNKNOWN 11/29/15) diclofenac (From VOLTAREN) (RASH 11/29/15) ezetimibe (UNKNOWN 11/29/15) fluoxetine (From PROZAC) (N/V 11/29/15) metoclopramide (UNKNOWN 11/29/15) nitrofurantoin (PAIN, TREMORS, N/V 11/29/15) ciprofloxacin (From CIPRO) (Severe, GI UPSET 11/29/15) Uncoded Allergies: ALL NASAL SPRAYS (Severe, UNKNOWN PER PT 04/17/15) Reconcile Medications Acetaminophen (Tylenol Extra Strength) 500 MG TABLET 1 TAB PO Q6P PRN Pain . Amoxicillin/Potassium Clav (Augmentin 875-125 Tablet) 875 MG-125 MG TABLET 1 TAB PO BID uti Citalopram Hydrobromide (Citalopram HBr) 10 MG TABLET 1 TAB PO DAILY MENTAL HEALTH (Reported) Donepezil HCl 5 MG TABLET 2 TAB PO DAILY DEMENTIA (Reported) Fenofibrate 160 MG TABLET 1 TAB PO DAILY CHOLESTEROL/TRIGLYCERIDES (Reported) Hydrochlorothiazide 12.5 MG CAPSULE 1 CAP PO DAILY HTN (Reported) Irbesartan (Avapro) 300 MG TABLET 1 TAB PO DAILY HEART (Reported) Levothyroxine Sodium (Levoxyl) 75 MCG TABLET 1 TAB PO DAILY THYROID (Reported ) Memantine HCl (Namenda XR) 14 MG CAP.SPR.24 1 CAP PO DAILY MENTAL HEALTH ( Reported) Metoprolol Succinate 25 MG TAB 0.5 TAB PO BID HTN (Reported) Nitroglycerin 0.4 MG TAB.SUBL 1 TAB SL AD PRN CHEST PAIN (Reported) 1st sign of attack; may repeat every 5 minutes until relief; if pain persists after 3 tablets in 15 minutes, prompt medical att Oxycodone HCl/Acetaminophen (Percocet 5-325 MG Tablet) 5 MG-325 MG TABLET 1-2 TAB PO Q6P PRN pain Oxycodone HCl/Acetaminophen (Percocet 5-325 MG Tablet) 5 MG-325 MG TABLET 1 TAB PO BID PRN pain Pantoprazole Sodium 40 MG TABLET.DR 1 TAB PO DAILY GI (Reported) Rosuvastatin Calcium (Crestor) 20 MG TABLET 1 TAB PO DAILY HEART HEALTH ( Reported) Sucralfate (Carafate) 1 GRAM/10 ML ORAL.SUSP 10 ML PO TID GI (Reported) 1 hour before food and bedtime Warfarin Sodium 4 MG TABLET 0.5 TAB PO DAILY BLD THINNER (Reported) Triage Note: TRIAGE: 76 Y/O FEMALE PRESENTS C/O RIGHT FLANK PAIN / SINCE 09/28 - WAS SEEN AND EVALUATED ON 09/28 FOR UTI - GIVEN ABX - NO IMPROVEMENT. Triage Nurses Notes Reviewed? yes Onset: Abrupt Duration: day(s):, waxing and waning Timing: recent history Injury Environment: home Severity: moderate, severe No Modifying Factors: none HPI: 76-year-old female comes into the emergency room for further evaluation of back pain. Patient has been seen here multiple times in the past for back pain. The pain has been thought to been attributed to renal cysts in the past. She reportedly has a diagnosis of Alzheimer's disease dementia but the reports that she does not know and gets angry. He is making thoughts of wanting to just at home and not wanting to live anymore. She has been taking the antibiotic but has not taken medication allergies prescribed for pain. She reports that she does not like taking medication. (Bora Rouse) Past History Travel History Traveled to [place] past 21 day No Medical History Any Pertinent Medical History? 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 No (Bora Rouse) Review of Systems Review of Systems Constitutional: Reports: no symptoms. EENTM: Reports: no symptoms. Respiratory: Reports: no symptoms. Cardiovascular: Reports: no symptoms. GI: Reports: see HPI. Genitourinary: Reports: see HPI. Musculoskeletal: Reports: see HPI. Skin: Reports: no symptoms. Neurological/Psychological: Reports: no symptoms. Hematologic/Endocrine: Reports: no symptoms. Immunologic/Allergic: Reports: no symptoms. All Other Systems: Reviewed and Negative (Bora Rouse) Physical Exam Physical Exam General Appearance: alert, awake, mild distress Head: atraumatic Eyes: Bilateral: normal appearance. Ears, Nose, Throat: normal ENT inspection, hearing grossly normal Neck: normal inspection Respiratory: no respiratory distress Cardiovascular: regular rate/rhythm Back: normal inspection, CVA tenderness (R), CVA tenderness (L) Extremities: normal inspection, no edema Neurologic/Psych: awake, alert, oriented x 3, normal gait Skin: intact, warm/dry Core Measures ACS in differential dx? No CVA/TIA Diagnosis: No Sepsis Present: No Sepsis Focused Exam Completed? No (Bora Rouse) Progress Differential Diagnoses I considered the following diagnoses in my evaluation of the patient: Pyelonephritis, muscle strain, dementia, suicidal ideation, depression, anxiety, bipolar, Plan of Care: Orders Procedure Date/time Status Heart Healthy Diet 10/06 B Active Admit to inpatient psych 10/06 1349 Active Continuous Observation Monitor 10/06 0538 Active 3:05 PM PATIENT SIGNED OUT TO ME BY DR SILVA. PENDING GERIPSYCH PLACEMENT. 7:15 PM PATIENT UPSET, THREW HER BAND ON THE GROUND. 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 (Jonatan Coelho MD) Hand-Off Endorsed To: Renita Matthew MD Endorsed Time: 1500 Pending: consult (likely geripsych placement) (Trey Silva MD) Hand-Off Endorsed To: Adolfo Escalona MD Endorsed Time: 2308 Pending: consult (GERIPSYCH PLACEMENT) (Renita Matthew MD) Hand-Off Endorsed To: Adonay Butts MD Endorsed Time: 0700 Pending: consult (Adolfo Escalona MD) Departure Departure Disposition: STILL A PATIENT Condition: Stable Referrals: Edmond Hamilton MD (PCP/Family) Departure Forms: Customer Survey General Discharge Information (Bora Rouse) PA/COVERING AND LINING SUPERVISOR Co-Sign Statement Statement: ED Attending supervision documentation- [] I saw and evaluated the patient. I have also reviewed all the pertinent lab results and diagnostic results. I agree with the findings and the plan of care as documented in the PA's/COVERING AND LINING SUPERVISOR's documentation. [x] I have reviewed the ED Record and agree with the PA's/COVERING AND LINING SUPERVISOR's documentation. [] Additions or exceptions (if any) to the PAs/COVERING AND LINING SUPERVISOR's note and plan are summarized below: [] (Adolfo Escalona MD) Departure Clinical Impression Primary Impression: Depression Secondary Impressions: Back pain, Dementia, Suicidal ideation Psych Admission Note Psychiatric Admission: I have seen and evaluated ZACHARY,CHETAN M. I have also reviewed all the pertinent lab results and diagnostic results. CHETAN SHARMA will be admitted to our inpatient Psychiatric unit for treatment and care. PA/COVERING AND LINING SUPERVISOR Co-Sign Statement Statement: ED Attending supervision documentation- [] I saw and evaluated the patient. I have also reviewed all the pertinent lab results and diagnostic results. I agree with the findings and the plan of care as documented in the PA's/COVERING AND LINING SUPERVISOR's documentation. [X] I have reviewed the ED Record and agree with the PA's/COVERING AND LINING SUPERVISOR's documentation. [] Additions or exceptions (if any) to the PAs/COVERING AND LINING SUPERVISOR's note and plan are summarized below: [] (Benjamín OSHEA,Adonay Onofre) Critical Care Note Critical Care Note Critical Care Time: non-applicable (Bora Rouse)
[2017-10-04 15:50] LABS: ABSOLUTE BASOPHIL COUNT 0 /CUMM (0.0-0.2); ABSOLUTE EOSINOPHIL COUNT 0.3 /CUMM (0.0-0.7); ABSOLUTE GRANULOCYTE CT 4.8 /CUMM (1.4-6.5); ABSOLUTE LYMPH COUNT 2.3 /CUMM (1.2-3.4); ABSOLUTE MONOCYTE COUNT 0.8 /CUMM (0.10-0.60); BASOPHIL % 0.4 % (0.0-2.0); EOSINOPHIL % 3.8 % (0-5); GRANULOCYTE % 58.8 % (42.2-75.2); HEMATOCRIT 36.9 % (37-47); MEAN CORPUSCULAR HGB 28.9 PG (27.0-31.0); MEAN CORPUSCULAR HGB CONC 33.8 G/DL (33.0-37.0); MEAN CORPUSCULAR VOLUME 85.4 FL (81.0-99.0); MEAN PLATELET VOLUME 8.4 FL (7.4-10.4); PLATELET COUNT 207 /CUMM (130-400); RBC DISTRIBUTION WIDTH 13.6 % (11.5-14.5); RED BLOOD CELL CT 4.32 /CUMM (4.20-5.40); WHITE BLOOD CELL COUNT 8.2 /CUMM (4.8-10.8)
--- NOTE | 2017-10-04 19:07 | ED PSYCH CRISIS CONSULTATION ---
See Addendum Crisis Consult Basic Assessment Date of Consult: 10/04/17 Responsible Person/Accompanied By: Brought in by Insurance Authorization: Insurance #1: Insurance name: MEDICARE A Phone number: Policy number: [id number] Group number: Authorization number: ED Provider: Patient's ED Provider: Bora Rouse Primary Care Physician: Patient's PCP: Edmond Hamilton MD PCP's Current Psychiatrist: None Chief Complaint: Abdominal Pain/Flank Pain Patient's Quote: " I have my faculties." Present Illness: The patient presents alert and oriented X3. She is able to state that she is at [facility], who the president is, that it is September 2017 turning into 2018, her name, age and can spell WORLD backwards and count backwards from 10. She was calm, cooperative, and had a euthymic mood. She reports that she has some depression, rating it a 6 out of 10, 10 being most severe. She does admit to wanting to , however states that she is not suicidal and would not kill herself. She reports a period of depression when she was younger, related to her mother giving her, to her aunt to be raised. The patient reports that she did attempt suicide, via OD in the past, however has not had mental health issues or treatment for the majority of her life. She reports seeing Dr. Griffin at [facility] for about a year, "just to talk." She denies any current or history of HI / AH / VH. She denies having any anxiety and states that she is just depressed and that it will not change. She does not feel like any interventions will help her at this time. She has been for 58 years and has 3 daughters. She states that her and 1 of her daughters, Jayashree is supportive, despite feeling as though her daughter ignores her when she comes to visit. She is connected to the [facility] and has aides that come daily, during the week, from 9 to 3. She reports attending [facility], at the [facility] on Wednesday night and that she goes to the food bank at the [facility]. She denies any history of drug or alcohol abuse. The patient denies having any stressors and states " I don't get stressed out easily." She denies any history of trauma or abuse. She is in agreement with staying overnight for further evaluation. JESSICA met with her , Avi Arboleda ([phone]), and he gave a brief history, primarily deferring to his daughter. JESSICA met with her daughter, Jayashree Knight ([phone]), for collateral information. Jayashree confirms most of the above and states that she has been named POA for the patient and her father. Jayashree states that her father has significant anxiety and that it effects the patient. Jayashree reports that the patient was admitted to the hospital when she was 18 years old, after her infant son passed of a brain tumor. Jayashree reports that the patient has services through the [facility], however that the patients does not allow aides to come on the weekend and therefore they end up coming to the hospital. Jayashree states that she is aware the patient has made some suicidal statements, however notes that she does not think she would act on the thoughts. Jayashree notes that the patient continues to perseverate on being given to her aunt to be raised and not understanding the reasoning behind it. Jayashree notes that the patient does have some pain issues, however refuses to take pain medications. Jayashree is not clear what would be helpful, however is willing to help in anyway. Jayashree states that if the patient is discharged tomorrow that she can pick her up and have her visit with grandchildren. Patient's Address: [address] [place] [address] Other Phone Number: Who Do You Live With? Spouse Family/Informants Interviewed: - Avi Arboleda- [phone] Daughter- Jayashree Knight- [phone] Allergies - Coded Allergies: darifenacin (Severe, UNKNOWN 11/29/15) lidocaine (Severe, RASH 11/29/15) nifedipine (Severe, UNKNOWN 11/29/15) phenobarbital (Severe, UNKNOWN 11/29/15) prednisolone (Severe, RASH 11/29/15) hydromorphone (From DILAUDID) (Intermediate, NAUSEA AND VERTIGO 08/22/17) Sulfa (Sulfonamide Antibiotics) (UNKNOWN 11/29/15) amitriptyline (RASH 11/29/15) aspirin (UNKNOWN 11/29/15) celecoxib (From CELEBREX) (UNKNOWN 11/29/15) clopidogrel (UNKNOWN 11/29/15) diclofenac (From VOLTAREN) (RASH 11/29/15) ezetimibe (UNKNOWN 11/29/15) fluoxetine (From PROZAC) (N/V 11/29/15) metoclopramide (UNKNOWN 11/29/15) nitrofurantoin (PAIN, TREMORS, N/V 11/29/15) ciprofloxacin (From CIPRO) (Severe, GI UPSET 11/29/15) Uncoded Allergies: ALL NASAL SPRAYS (Severe, UNKNOWN PER PT 04/17/15) Current Medications - Scheduled Medications Amoxicillin/Potassium Clav (Augmentin 875-125 Tablet) 875 MG-125 MG TABLET 1 TAB PO BID uti #14 TAB Prescribed by Ericka Romero on 09/28/17 Citalopram Hydrobromide (Citalopram HBr) 10 MG TABLET 1 TAB PO DAILY MENTAL HEALTH #30 (Reported) Entered as Reported by Addie Berman on 08/07/17 1159 Donepezil HCl 5 MG TABLET 2 TAB PO DAILY DEMENTIA #30 (Reported) Entered as Reported by Addie Berman on 08/07/17 1206 Fenofibrate 160 MG TABLET 1 TAB PO DAILY CHOLESTEROL/TRIGLYCERIDES (Reported) Entered as Reported by Addie Berman on 08/07/17 1152 Hydrochlorothiazide 12.5 MG CAPSULE 1 CAP PO DAILY HTN #90 (Reported) Entered as Reported by Addie Berman on 08/07/17 1126 Irbesartan (Avapro) 300 MG TABLET 1 TAB PO DAILY HEART (Reported) Entered as Reported by Addie Berman on 08/07/17 1154 Levothyroxine Sodium (Levoxyl) 75 MCG TABLET 1 TAB PO DAILY THYROID (Reported ) Entered as Reported by Nathaly Kern on 08/22/17 1248 Memantine HCl (Namenda XR) 14 MG CAP.SPR.24 1 CAP PO DAILY MENTAL HEALTH #90 (Reported) Entered as Reported by Addie Berman on 08/07/17 1201 Metoprolol Succinate 25 MG TAB 0.5 TAB PO BID HTN #90 (Reported) Entered as Reported by Addie Berman on 08/07/17 1159 Pantoprazole Sodium 40 MG TABLET.DR 1 TAB PO DAILY GI #90 (Reported) Entered as Reported by Nathaly Kern on 08/22/17 1242 Rosuvastatin Calcium (Crestor) 20 MG TABLET 1 TAB PO DAILY HEART HEALTH ( Reported) Entered as Reported by Addie Berman on 08/07/17 1200 Sucralfate (Carafate) 1 GRAM/10 ML ORAL.SUSP 10 ML PO TID GI #2700 (Reported) Entered as Reported by Addie Berman on 08/07/17 1205 Warfarin Sodium 4 MG TABLET 0.5 TAB PO DAILY BLD THINNER #30 (Reported) Entered as Reported by Addie Berman on 08/07/17 1204 Scheduled PRN Medications Acetaminophen (Tylenol Extra Strength) 500 MG TABLET 1 TAB PO Q6P PRN Pain #30 TAB Prescribed by Adonay Meyer MD on 08/11/17 Nitroglycerin 0.4 MG TAB.SUBL 1 TAB SL AD PRN CHEST PAIN #25 (Reported) Entered as Reported by Nathaly Kern on 08/22/17 1244 Oxycodone HCl/Acetaminophen (Percocet 5-325 MG Tablet) 5 MG-325 MG TABLET 1-2 TAB PO Q6P PRN pain #16 TAB Prescribed by Jonatan Coelho MD on 08/22/17 Oxycodone HCl/Acetaminophen (Percocet 5-325 MG Tablet) 5 MG-325 MG TABLET 1 TAB PO BID PRN pain #10 TAB Prescribed by Ericka Romero on 09/28/17 Laboratory Results: Laboratory Tests 10/04/17 1538: Anion Gap 13, Estimated GFR 44 L, BUN/Creatinine Ratio 14.2, Glucose 86, Calcium 9.3, Total Bilirubin 0.7, AST 37 H, ALT 40, Alkaline Phosphatase 61, Total Protein 7.0, Albumin 3.8, Globulin 3.2, Albumin/Globulin Ratio 1.2, CBC w Diff NO MAN DIFF REQ, RBC 4.32, MCV 85.4, MCH 28.9, RDW 13.6, MPV 8.4, Gran % 58.8, Lymphocytes % 27.7, Monocytes % 9.3, Eosinophils % 3.8, Basophils % 0.4, Absolute Granulocytes 4.8, Absolute Lymphocytes 2.3, Absolute Monocytes 0.8 H, Absolute Eosinophils 0.3, Absolute Basophils 0, PUBS MCHC 33.8, Serum Alcohol < 10.0 10/04/17 1401: Urine Opiates Screen < 100.00, Methadone Screen < 40, Barbiturate Screen < 60, Ur Phencyclidine Scrn < 6.00, Amphetamines Screen < 100, U Benzodiazepines Scrn < 85, Urine Cocaine Screen < 50, Urine Cannabis Screen < 5.00, Urine Color YEL, Urine Clarity CLEAR, Urine pH 8.0, Ur Specific [place] 1.015, Urine Protein NEG, Urine Ketones NEG, Urine Nitrite NEG, Urine Bilirubin NEG, Urine Urobilinogen 0.2, Ur Leukocyte Esterase TRACE H, Ur Microscopic SEDIMENT EXAMINED, Urine WBC 3-5 H, Ur Epithelial Cells MOD H, Urine Mucus FEW, Urine Hemoglobin NEG, Urine Glucose NEG Microbiology 10/04 1401 URINE ROUT: Urine Culture - RECD Past History Past Medical History Neurological: Alzheimer's disease EENT: NONE Cardiovascular: hypertension, hyperlipidemia, myocardial infarction, STENTS X 3 CABGX 4 EMBOLIC FEET CARDIAC THROMBUS Respiratory: NONE Gastrointestinal: NONE Hepatic: NONE Renal: nephrolithiasis, previous urinary tract infections Musculoskeletal: osteoarthritis, Raynaud's syndrome Psychiatric: anxiety, depression Endocrine: NONE Blood Disorders: NONE Cancer(s): NONE 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 She is connected to the [facility]. Physical Limitations (Interventions): She has Fibromyalgia and has had UTI's. Psychiatric Treatment History Psych Treatment Psychiatric Treatment Yes Inpatient Treatment Yes Outpatient Treatment Yes Location of Treatment IP-Unclear....OP with Dr. Griffin 2016 Reason for Treatment Per daughter she was hospitalized at 18 years old, when her infant son passed from a brain tumor. Dates of Treatment When the patient was 18 years. Response to Treatment Unclear Diagnosis by History: Unknown Substance Use/Abuse History Drug Use/Abuse Substances Used/Abused No First Use N/A Last Used N/A How much used/taken N/A How often N/A For how long N/A Route of use N/A Substance Abuse Treatment Substance Abuse Treatment Past Substance Abuse [place] No Inpatient Treatment No Outpatient Treatment No Location of Treatment N/A Reason for Treatment N/A Dates of Treatment N/A Response to Treatment N/A Comments: N/A Current Mental Status Mental Status Orientation: Person, Place, Situation Affect: Flat Speech: WNL Neuro-vegetative: WNL Appearance Appearance- Dress/Hygiene: The patient was lying in bed, with the covers pulled up to her neck. Behaviors Thought Process: WNL Thought Content: WNL Memory: WNL Insight: WNL SI/HI Risk Assessment Past Suicidal Ideation/Attempts Yes (1 previous suicide attempt OD) Current Suicidal Ideation/Att Yes (" I just want to .") Past Homicidal Ideation/Att: No Current Homicidal Ideation/Attempts No Degree of Intent: The patient reports that she wants to , however states that she will not do anything to take her life. She states that she is just depressed and it is hard to understand., She states that she attempted suicide via OD in the past. Danger To: Self Gravely Disabled: N/A Risk Factors: history of suicide atmpts Lethality Ratin PTSD Checklist PTSD Done? patient declined (Pt. denied any trauma or abuse) ED Management Sitter: Yes Restraints: No DSM5/PS Stressors/Medical Prob Diagnosis' (DSM 5, Stressors, Medical): F32.9 Unspecified Depressive Disorder Medical: History of UTI's, Fibromyalgia per daughter Stressors: relationship with children Current GAF: 40 Comments: N/A Departure Disposition Psych Medical Clearance Date: 10/04/17 Medically Cleared at: 1530 Time Started: 1600 Time Ended: 1800 Psychiatrist Consulted: Masha Celis MD Date Disposition Established: 10/04/17 Time Disposition Established: 183 Plan for Disposition - Modality: Hold over for reassessment. Contact: N/A Telephone: N/A Rationale for Disposition: The patient was brought to the ED, after complaining about having some pain. She was medically cleared and her disclosed that she has been talking about depression and wanting to . The patient was evaluated and admitted to wanting to , however states that she would never act on her thoughts. She is connected to the [facility] and has daily support. The case was dicussed with Dr. Celis and she will hold the patient over for reassessment. The patients daughterJayashree would like to be contacted with the treatment plan, after it is determined tomorrow. Additional Instructions: N/A Referrals Joy OSHEA,Edmond (PCP/Family)
--- NOTE | 2017-10-06 11:02 | IP CRISIS DIAG ASSESS PSYCH ---
See Addendum Diagnostic Assessment Basic Assessment Insurance Authorization: Insurance #1: Insurance name: MEDICARE A Phone number: Policy number: [id number] Group number: Authorization number: Primary Care Physician: Patient's PCP: Edmond Hamilton MD PCP's Patient's Quote: " I have my faculties." Present Illness: "SW met with the patient for the morning reassessment. The patient presents with mood lability, while she was discussing the events of her life. She feels as though she was always a good person and that her family has never treated her that way. She feels that she always supported her and that he took a lot from her over the years. She had 4 children, 2 daughters she does not speak to, 1 son that at 3 weeks old and 1 daughter that she is connected to. She reports feeling depressed and states "what am I here for." She reports that for the majority of her life she has felt this way and "just kept it to herself. " She appears to be a strong woman, who has persevered through many things in her life and is now starting to talk about how she feels." The following was taken from the conusltation completed on 10/04/2017. The patient presents alert and oriented X3. She is able to state that she is at [facility], who the president is, that it is September 2017 turning into 2018, her name, age and can spell WORLD backwards and count backwards from 10. She was calm, cooperative, and had a euthymic mood. She reports that she has some depression, rating it a 6 out of 10, 10 being most severe. She does admit to wanting to , however states that she is not suicidal and would not kill herself. She reports a period of depression when she was younger, related to her mother giving her, to her aunt to be raised. The patient reports that she did attempt suicide, via OD in the past, however has not had mental health issues or treatment for the majority of her life. She reports seeing Dr. Griffin at the [facility] for about a year, "just to talk." She denies any current or history of HI / AH / VH. She denies having any anxiety and states that she is just depressed and that it will not change. She does not feel like any interventions will help her at this time. She has been for 58 years and has 3 daughters. She states that her and 1 of her daughters, Jayashree is supportive, despite feeling as though her daughter ignores her when she comes to visit. She is connected to the [facility] and has aides that come daily, during the week, from 9 to 3. She reports attending [facility], at the [facility] on Wednesday night and that she goes to the food bank at the [facility]. She denies any history of drug or alcohol abuse. The patient denies having any stressors and states " I don't get stressed out easily." She denies any history of trauma or abuse. She is in agreement with staying overnight for further evaluation. JESSICA met with her , Avi Arboleda ([phone]), and he gave a brief history, primarily deferring to his daughter. JESSICA met with her daughter, Jayashree Knight ([phone]), for collateral information. Jayashree confirms most of the above and states that she has been named POA for the patient and her father. Jayashree states that her father has significant anxiety and that it effects the patient. Jayashree reports that the patient was admitted to the hospital when she was 18 years old, after her infant son passed of a brain tumor. Jayashree reports that the patient has services through the [facility], however that the patients does not allow aides to come on the weekend and therefore they end up coming to the hospital. Jayashree states that she is aware the patient has made some suicidal statements, however notes that she does not think she would act on the thoughts. Jayashree notes that the patient continues to perseverate on being given to her aunt to be raised and not understanding the reasoning behind it. Jayashree notes that the patient does have some pain issues, however refuses to take pain medications. Jayashree is not clear what would be helpful, however is willing to help in anyway. Jayashree states that if the patient is discharged tomorrow that she can pick her up and have her visit with grandchildren. Patient's Address: [address] [place] [address] [address] [place] [address] Other Phone Number: Who Do You Live With? Spouse Feel Safe Where You Live? Yes Feel Safe in Your Relationship Yes Marital Status: Do You Have Children? Yes Ages? 4 adult children Primary Language? German Family/Informants Interviewed: - Avi Arboleda- [phone] Daughter- Jayashree Knight- [phone] Allergies - Coded Allergies: darifenacin (Severe, UNKNOWN 11/29/15) lidocaine (Severe, RASH 11/29/15) nifedipine (Severe, UNKNOWN 11/29/15) phenobarbital (Severe, UNKNOWN 11/29/15) prednisolone (Severe, RASH 11/29/15) hydromorphone (From DILAUDID) (Intermediate, NAUSEA AND VERTIGO 08/22/17) Sulfa (Sulfonamide Antibiotics) (UNKNOWN 11/29/15) amitriptyline (RASH 11/29/15) aspirin (UNKNOWN 11/29/15) celecoxib (From CELEBREX) (UNKNOWN 11/29/15) clopidogrel (UNKNOWN 11/29/15) diclofenac (From VOLTAREN) (RASH 11/29/15) ezetimibe (UNKNOWN 11/29/15) fluoxetine (From PROZAC) (N/V 11/29/15) metoclopramide (UNKNOWN 11/29/15) nitrofurantoin (PAIN, TREMORS, N/V 11/29/15) ciprofloxacin (From CIPRO) (Severe, GI UPSET 11/29/15) Uncoded Allergies: ALL NASAL SPRAYS (Severe, UNKNOWN PER PT 04/17/15) Current Medications - Scheduled Medications Amoxicillin/Potassium Clav (Augmentin 875-125 Tablet) 875 MG-125 MG TABLET 1 TAB PO BID uti #14 TAB Prescribed by Ericka Romero on 09/28/17 Citalopram Hydrobromide (Citalopram HBr) 10 MG TABLET 1 TAB PO DAILY MENTAL HEALTH #30 (Reported) Entered as Reported by Addie Berman on 08/07/17 1159 Donepezil HCl 5 MG TABLET 2 TAB PO DAILY DEMENTIA #30 (Reported) Entered as Reported by Addie Berman on 08/07/17 1206 Fenofibrate 160 MG TABLET 1 TAB PO DAILY CHOLESTEROL/TRIGLYCERIDES (Reported) Entered as Reported by Addie Berman on 08/07/17 1152 Hydrochlorothiazide 12.5 MG CAPSULE 1 CAP PO DAILY HTN #90 (Reported) Entered as Reported by Addie Berman on 08/07/17 1126 Irbesartan (Avapro) 300 MG TABLET 1 TAB PO DAILY HEART (Reported) Entered as Reported by Addie Berman on 08/07/17 1154 Levothyroxine Sodium (Levoxyl) 75 MCG TABLET 1 TAB PO DAILY THYROID (Reported ) Entered as Reported by Nathaly Kern on 08/22/17 1248 Memantine HCl (Namenda XR) 14 MG CAP.SPR.24 1 CAP PO DAILY MENTAL HEALTH #90 (Reported) Entered as Reported by Addie Berman on 08/07/17 1201 Metoprolol Succinate 25 MG TAB 0.5 TAB PO BID HTN #90 (Reported) Entered as Reported by Addie Berman on 08/07/17 1159 Pantoprazole Sodium 40 MG TABLET.DR 1 TAB PO DAILY GI #90 (Reported) Entered as Reported by Nathaly Kern on 08/22/17 1242 Rosuvastatin Calcium (Crestor) 20 MG TABLET 1 TAB PO DAILY HEART HEALTH ( Reported) Entered as Reported by Addie Berman on 08/07/17 1200 Sucralfate (Carafate) 1 GRAM/10 ML ORAL.SUSP 10 ML PO TID GI #2700 (Reported) Entered as Reported by Addie Berman on 08/07/17 1205 Warfarin Sodium 4 MG TABLET 0.5 TAB PO DAILY BLD THINNER #30 (Reported) Entered as Reported by Addie Berman on 08/07/17 1204 Scheduled PRN Medications Acetaminophen (Tylenol Extra Strength) 500 MG TABLET 1 TAB PO Q6P PRN Pain #30 TAB Prescribed by Adonay Meyer MD on 08/11/17 Nitroglycerin 0.4 MG TAB.SUBL 1 TAB SL AD PRN CHEST PAIN #25 (Reported) Entered as Reported by Nathaly Kern on 08/22/17 1244 Oxycodone HCl/Acetaminophen (Percocet 5-325 MG Tablet) 5 MG-325 MG TABLET 1-2 TAB PO Q6P PRN pain #16 TAB Prescribed by Jonatan Coelho MD on 11/19/17 Oxycodone HCl/Acetaminophen (Percocet 5-325 MG Tablet) 5 MG-325 MG TABLET 1 TAB PO BID PRN pain #10 TAB Prescribed by Ericka Romero on 09/28/17 Consequences of Psych Med Use: N/A Comment: N/A Toxicology Screen Completed? Yes Results: negative Symptoms of Use: N/A Past History Past Medical History Medical History: Cholesterol, Hypertension, Cardiac history Past Surgical History Surgical History CHOLY, L KIDNEY CYST QUAD CARDIAC BYPASS/STENT Abuse/Trauma History Trauma History/Current Trauma: The patient had her son pass away at 3 weeks old from a tumor. History of Trauma/Abuse Treatment? No Abuse/Trauma Treatment: The patient was admitted to an inpatient unit at that time. Legal History Current Legal Status: none Have you ever been arrested? No Number of Arrests: [address] Dates: N/A [employer] N/A Psychosocial History Strengths/Capabilities: The patient has a supportive and daughter. She is connected to the [facility]. Physical Limitations (Interventions): She has Fibromyalgia and has had UTI's- per daughter. Psychiatric Treatment History Psych Treatment Psychiatric Treatment Yes Inpatient Treatment Yes Outpatient Treatment Yes Location of Treatment IP-Unclear....OP with Dr. Griffin 2016 Reason for Treatment Per daughter she was hospitalized at 18 years old, when her son passed from a brain tumor. Dates of Treatment When the patient was 18 years. Response to Treatment Unclear Diagnosis by History: Unknown Risk Factors: history of suicide atmpts, SA/MH hospitalized Substance Use/Abuse History Drug Use/Abuse minimum 12mo Hx Substances Used/Abused No First Use N/A Last Used N/A How much used/taken N/A How often N/A For how long N/A Route of use N/A Substance Abuse Treatment Substance Abuse Treatment Past Substance Abuse TX No Inpatient Treatment No Outpatient Treatment No Location of Treatment N/A Reason for Treatment N/A Dates of Treatment N/A Response to Treatment N/A Comments: N/A Sexual History Sexual Concerns: None noted Education History Highest Level of Education: high school/GED Preferred Learning Style: Unclear Current Mental Status Mental Status Orientation: Person, Place, Situation Affect: Appropriate Speech: WNL Neuro-vegetative: WNL Appearance Appearance- Dress/Hygiene: The patient was sitting in bed, in hospital attire with good eye contact and participation in the evaluation. Behaviors Thought Process: WNL Thought Content: WNL Memory: Short term memory Insight: WNL SI/HI Risk Assessment - Minimum 6mo History- Past Suicidal Ideation/Attempts Yes (1 previous suicide attempt OD) Current Suicidal Ideation/Att Yes (" I just want to .") Past Homicidal Ideation/Att: No Current Homicidal Ideation/Attempts No Degree of Intent: The patient reports that she wants to , however states that she will not do anything to take her life. She states that she is just depressed and it is hard to understand. She states that she attempted suicide via OD in the past. Danger To: Self Gravely Disabled: N/A Risk Factors: history of suicide atmpts Lethality Ratin Needs/Init TX Plan/Goals: Admit to the inpatient unit for safety and symptom stabilization. Work with the provider on medication evaluation. Work with the treatment team to transition to care in the community. AUDIT-C Questionnaire: AUDIT-C Questionnaire: Response Value ETOH use in the past year Never 0 # drinks typical/day Doesn't Drink 0 6 or > drinks per occasion Never 0 Total 0 DSM5/PS Stressors/Medical Prob Diagnosis' (DSM 5, Stressors, Medical): F32.9 Unspecified Depressive Disorder Medical: History of UTI's, Fibromyalgia per daughter, Hypertension, Hyperlipidemia, Myocardial Infarction with stents. Stressors: relationship with children Current GAF: 28 Comments: N/A
--- NOTE | 2017-10-06 11:24 | SOCIAL WORKER SOCIAL HX PSYCH ---
Social History Basic Assessment Insurance Authorization: Insurance #1: Insurance name: MEDICARE A Phone number: Policy number: [id number] Group number: Authorization number: Curr Source of Income/Entitlements: Medicaid, Medicare, SSI Primary Care Physician: Patient's PCP: Edmond Hamilton MD PCP's Present Problem: "SW met with the patient for the morning reassessment. The patient presents with mood lability, while she was discussing the events of her life. She feels as though she was always a good person and that her family has never treated her that way. She feels that she always supported her and that he took a lot from her over the years. She had 4 children, 2 daughters she does not speak to, 1 son that at 3 weeks old and 1 daughter that she is connected to. She reports feeling depressed and states "what am I here for." She reports that for the majority of her life she has felt this way and "just kept it to herself. " She appears to be a strong woman, who has persevered through many things in her life and is now starting to talk about how she feels." The following was taken from the conusltation completed on 10/04/2017. The patient presents alert and oriented X3. She is able to state that she is at [facility], who the president is, that it is September 2017 turning into 2018, her name, age and can spell WORLD backwards and count backwards from 10. She was calm, cooperative, and had a euthymic mood. She reports that she has some depression, rating it a 6 out of 10, 10 being most severe. She does admit to wanting to , however states that she is not suicidal and would not kill herself. She reports a period of depression when she was younger, related to her mother giving her, to her aunt to be raised. The patient reports that she did attempt suicide, via OD in the past, however has not had mental health issues or treatment for the majority of her life. She reports seeing Dr. [facility] at [facility] for about a year, "just to talk." She denies any current or history of HI / AH / VH. She denies having any anxiety and states that she is just depressed and that it will not change. She does not feel like any interventions will help her at this time. She has been for 58 years and has 3 daughters. She states that her and 1 of her daughters, Jayashree is supportive, despite feeling as though her daughter ignores her when she comes to visit. She is connected to the [facility] and has aides that come daily, during the week, from 9 to 3. She reports attending [facility], at the [facility] on Wednesday night and that she goes to the food bank at the [facility]. She denies any history of drug or alcohol abuse. The patient denies having any stressors and states " I don't get stressed out easily." She denies any history of trauma or abuse. She is in agreement with staying overnight for further evaluation. JESSICA met with her , Avi Arboleda ([phone]), and he gave a brief history, primarily deferring to his daughter. JESSICA met with her daughter, Jayashree Knight ([phone]), for collateral information. Jayashree confirms most of the above and states that she has been named POA for the patient and her father. Jayashree states that her father has significant anxiety and that it effects the patient. Jayashree reports that the patient was admitted to the hospital when she was 18 years old, after her son passed of a brain tumor. Jayashree reports that the patient has services through the [facility], however that the patients does not allow aides to come on the weekend and therefore they end up coming to the hospital. Jayashree states that she is aware the patient has made some suicidal statements, however notes that she does not think she would act on the thoughts. Jayashree notes that the patient continues to perseverate on being given to her aunt to be raised and not understanding the reasoning behind it. Jayashree notes that the patient does have some pain issues, however refuses to take pain medications. Jayashree is not clear what would be helpful, however is willing to help in anyway. Jayashree states that if the patient is discharged tomorrow that she can pick her up and have her visit with grandchildren. Primary Language? Tajik Living Situation Rents or Owns Home? rents Other Living Arrangement: N/A Residential Care/Treatment Fac N/A Feel Safe Where You Are Living Yes Feel Safe in Relationships? Yes Comments: N/A Allergies - Coded Allergies: darifenacin (Severe, UNKNOWN 11/29/15) lidocaine (Severe, RASH 11/29/15) nifedipine (Severe, UNKNOWN 11/29/15) phenobarbital (Severe, UNKNOWN 11/29/15) prednisolone (Severe, RASH 11/29/15) hydromorphone (From DILAUDID) (Intermediate, NAUSEA AND VERTIGO 08/22/17) Sulfa (Sulfonamide Antibiotics) (UNKNOWN 11/29/15) amitriptyline (RASH 11/29/15) aspirin (UNKNOWN 11/29/15) celecoxib (From CELEBREX) (UNKNOWN 11/29/15) clopidogrel (UNKNOWN 11/29/15) diclofenac (From VOLTAREN) (RASH 11/29/15) ezetimibe (UNKNOWN 11/29/15) fluoxetine (From PROZAC) (N/V 11/29/15) metoclopramide (UNKNOWN 11/29/15) nitrofurantoin (PAIN, TREMORS, N/V 11/29/15) ciprofloxacin (From CIPRO) (Severe, GI UPSET 11/29/15) Uncoded Allergies: ALL NASAL SPRAYS (Severe, UNKNOWN PER PT 04/17/15) Current Medications - Scheduled Medications Amoxicillin/Potassium Clav (Augmentin 875-125 Tablet) 875 MG-125 MG TABLET 1 TAB PO BID uti #14 TAB Prescribed by Ericka Romero on 09/28/17 Citalopram Hydrobromide (Citalopram HBr) 10 MG TABLET 1 TAB PO DAILY MENTAL HEALTH #30 (Reported) Entered as Reported by Addie Berman on 08/07/17 1159 Donepezil HCl 5 MG TABLET 2 TAB PO DAILY DEMENTIA #30 (Reported) Entered as Reported by Addie Berman on 08/07/17 1206 Fenofibrate 160 MG TABLET 1 TAB PO DAILY CHOLESTEROL/TRIGLYCERIDES (Reported) Entered as Reported by Addie Berman on 08/07/17 1152 Hydrochlorothiazide 12.5 MG CAPSULE 1 CAP PO DAILY HTN #90 (Reported) Entered as Reported by Addie Berman on 08/07/17 1126 Irbesartan (Avapro) 300 MG TABLET 1 TAB PO DAILY HEART (Reported) Entered as Reported by Addie Berman on 08/07/17 1154 Levothyroxine Sodium (Levoxyl) 75 MCG TABLET 1 TAB PO DAILY THYROID (Reported ) Entered as Reported by Nathaly Kern on 08/22/17 1248 Memantine HCl (Namenda XR) 14 MG CAP.SPR.24 1 CAP PO DAILY MENTAL HEALTH #90 (Reported) Entered as Reported by Addie Berman on 08/07/17 1201 Metoprolol Succinate 25 MG TAB 0.5 TAB PO BID HTN #90 (Reported) Entered as Reported by Addie Berman on 08/07/17 1159 Pantoprazole Sodium 40 MG TABLET.DR 1 TAB PO DAILY GI #90 (Reported) Entered as Reported by Nathaly Kern on 08/22/17 1242 Rosuvastatin Calcium (Crestor) 20 MG TABLET 1 TAB PO DAILY HEART HEALTH ( Reported) Entered as Reported by Addie Berman on 08/07/17 1200 Sucralfate (Carafate) 1 GRAM/10 ML ORAL.SUSP 10 ML PO TID GI #2700 (Reported) Entered as Reported by Addie Berman on 08/07/17 1205 Warfarin Sodium 4 MG TABLET 0.5 TAB PO DAILY BLD THINNER #30 (Reported) Entered as Reported by Addie Berman on 08/07/17 1204 Scheduled PRN Medications Acetaminophen (Tylenol Extra Strength) 500 MG TABLET 1 TAB PO Q6P PRN Pain #30 TAB Prescribed by Adonay Meyer MD on 08/11/17 Nitroglycerin 0.4 MG TAB.SUBL 1 TAB SL AD PRN CHEST PAIN #25 (Reported) Entered as Reported by Nathaly Kern on 08/22/17 1244 Oxycodone HCl/Acetaminophen (Percocet 5-325 MG Tablet) 5 MG-325 MG TABLET 1-2 TAB PO Q6P PRN pain #16 TAB Prescribed by Jonatan Coelho MD on 08/22/17 Oxycodone HCl/Acetaminophen (Percocet 5-325 MG Tablet) 5 MG-325 MG TABLET 1 TAB PO BID PRN pain #10 TAB Prescribed by Ericka Romero on 09/28/17 Consequences of Psych Med Use: N/A Comments: N/A Past History Past Medical History Neurological: Alzheimer's disease EENT: NONE Cardiovascular: hypertension, hyperlipidemia, myocardial infarction, STENTS X 3 CABGX 4 EMBOLIC FEET CARDIAC THROMBUS Respiratory: NONE Gastrointestinal: NONE Hepatic: NONE Renal: nephrolithiasis, previous urinary tract infections Musculoskeletal: osteoarthritis, Raynaud's syndrome Psychiatric: anxiety, depression Endocrine: NONE Blood Disorders: NONE Cancer(s): NONE 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 Childhood Family Constellation: The patient was was raised by her mother and father, with 7 siblings until she was 7 years old. At 7 years old her mother sent her to live with her aunt and the patient was never made aware of the reason for this decision. She is still very upset about this decision. Primary Childhood Caretakers: father, mother, aunt Family Life During Childhood: " My cousin was a brat." DCF Involvement? No Mother's Age (Current/): 68 () Relationship w/Mother: She states that "her mother was a taker." Father's Age (Current/): 73 () Relationship w/Father: "Ok" Any Sibling(s)? Yes Sibling's Gender(s)/Age(s): male Sibling 1:, male Sibling 2:, male Sibling 3:, male Sibling 4:, female Sibling 5:, female Sibling 6:, female Sibling 7: Relationship w/Sibling(s): She states that she does not have a relationship with any of her siblings. Relationship w/Friends: She states that she did have 1 friend, however notes that she 3 weeks ago. Family Psych/Sub Abuse/Add Hx: Unknown Other Comments: None noted Abuse/Trauma History Trauma History/Current Trauma: The patient had her son pass away at 3 weeks old from a tumor. History of Trauma/Abuse Treatment? No Abuse/Trauma Treatment: The patient was admitted to an inpatient unit at that time. Legal History Legal Guardian/Address/Phone: Self- however her daughter Jayashree is the POA Current Legal Status: none Pending Court Dates: N/A Have you ever been arrested No Number of Arrests: 0 Hx of Juvenile Legal Charges? No Hx of Adult Legal Charges? 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 She is connected to the [facility]. Weaknesses: She has been diagnosed with Alzheimers. Physical Limitations (Interventions): She has Fibromyalgia and has had UTI's- per daughter. Last Physical: Unknown History of Seizures? No (Pt. denies) History of Blackouts? No (Pt. denies) ADL Limitations: Per Dr. Nur office she is able to maintain her own ADL's. [place]/Social/Peer Relations She states that she did have a friend that she spent time with, however she . Meaningful Activities: She does go to the [facility] to play Bingo. Childhood Latter-Day: Yazdanism Current Sikh Affiliation: Religion Is Spirituality Important to You? "yes, I bleieve in GOD." Cultural/Ethnic Issues: None noted Are There Developmental Issues? No Milestones Achieved: fine motor, gross motor Psychiatric Treatment History Psych Treatment Inpatient Treatment Yes Outpatient Treatment Yes Location of Treatment IP-Unclear....OP with Dr. Griffin 2017 Reason for Treatment Per daughter she was hospitalized at 18 years old, when her infant son passed from a brain tumor. Dates of Treatment When the patient was 18 years. Response to Treatment Unclear Precipitating Factors: Grief Current Gopherman: She is being treated by Dr. Wei for her Alzheimers. Treatment of Prior Episodes: She was treated briefly inpatient when she was about 18 years old. Diagnosis: Unknown Psychodynamic Issues: She is still perseverating on why she was the only child chosen to live with her aunt and be separate from her siblings. Risk Factors: history of suicide atmpts, SA/MH hospitalized Substance Use/Abuse History Drug Use/Abuse First Use N/A Last Used N/A How much used/taken N/A How often N/A For how long N/A Route of use N/A Have Had Periods of Sobriety? Yes Explain: No history of drug or alcohol abuse. Relapse History? No Explain: N/A Have You Ever Attended AA? No Do You Attend AA Currently? No Do You Have a Sponsor? No Other Community Resources Used: She spends time at the [facility]. Symptoms of Use: N/A Substance Abuse Treatment Substance Abuse Treatment Inpatient Treatment No Outpatient Treatment No Location of Treatment N/A Reason for Treatment N/A Dates of Treatment N/A Response to Treatment N/A Comments: N/A Sexual History Sexual Concerns: None noted Education History Highest Level of Education: high school/GED Highest Grade Completed: Graduated High School Vocational Year Completed: N/A Number of College Years: 0 College Degree/Major: N/A Other Degree(s): N/A Preferred Learning Style: Unclear HX of Learning Difficulties: None reported Barriers to Learning: None reported Special Communication Needs: None reported Employment History Employment Retired Not in Labor Force: N/A 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 of Jobs in Last 5 Years: 0 Attendance: N/A Comments: N/A History Have You Been in The ? No If Yes, Explain: N/A Type of Discharge: N/A Date of Discharge: N/A Current Mental Status Mental Status Orientation: Person, Place, Situation Affect: Appropriate Speech: WNL Neuro-vegetative: WNL Appearance Appearance- Dress/Hygiene: The patient was sitting in bed, in hospital attire with good eye contact and participation in the evaluation. Behaviors Thought Process: WNL Thought Content: WNL Memory: Short term memory Insight: WNL SI/HI Risk Assessment Past Suicidal Ideation/Attempts Yes (1 previous suicide attempt OD) Current Suicidal Ideation/Att Yes (" I just want to .") Past Homicidal Ideation/Att: No Current Homicidal Ideation/Attempts No Degree of Intent: The patient reports that she wants to , however states that she will not do anything to take her life. She states that she is just depressed and it is hard to understand. She states that she attempted suicide via OD in the past. Danger To: Self Gravely Disabled: N/A Risk Factors: SA/MH Hospitalization(s), Hx of suicide attempt(s) Lethality Ratin - Conclusion and Recommendations for treatment - and discharge planning Summary: The patient presents with depressed mood and a feeling of wanting to . She states that she will not kill herself, however does not see the purpose of living. She has not been eating or sleeping and refuses her medications the majority of the time. She is pleasant, alert, oriented and is motivated to attend treatment.
[2017-10-06 17:32] VITALS: BP 132/68
[2017-10-06 20:02] VITALS: BP 145/72
[2017-10-06 23:34] LABS: PT 27.1 SEC (9.4-12.5)
[2017-10-07 07:59] VITALS: BP 133/63
[2017-10-07 08:14] LABS: PT 28.8 SEC (9.4-12.5)
--- NOTE | 2017-10-07 08:20 | Cons- Medical ---
General Information and HPI Consulting Request Date of Consult: 10/07/17 Requested By: Adolfo Bond MD Reason for Consult: Medical h & p Source of Information: patient, old records History of Present Illness: 76-year-old female multiple medical problems including coronary artery disease status post bypass, hypertension, hyperlipidemia, hypothyroidism, Alzheimer's disease and a history of renal cysts that sometimes require periodic drainage with recurrent UTIs and nephrolithiasis. She is here with depressive complaints. She complains of chronic "kidney pain" and says she has some urgency. No fevers no chills no cough no sputum no chest pain no nausea vomiting diarrhea no constipation. She says that she is allergic to aspirin and Plavix and she's been on Coumadin ever since she's had her bypass and then stenting. Allergies/Medications Allergies: Coded Allergies: darifenacin (Severe, UNKNOWN 11/29/15) lidocaine (Severe, RASH 11/29/15) nifedipine (Severe, UNKNOWN 11/29/15) phenobarbital (Severe, UNKNOWN 11/29/15) prednisolone (Severe, RASH 11/29/15) hydromorphone (From DILAUDID) (Intermediate, NAUSEA AND VERTIGO 08/22/17) Sulfa (Sulfonamide Antibiotics) (UNKNOWN 11/29/15) amitriptyline (RASH 11/29/15) aspirin (UNKNOWN 11/29/15) celecoxib (From CELEBREX) (UNKNOWN 11/29/15) clopidogrel (UNKNOWN 11/29/15) diclofenac (From VOLTAREN) (RASH 11/29/15) ezetimibe (UNKNOWN 11/29/15) fluoxetine (From PROZAC) (N/V 11/29/15) metoclopramide (UNKNOWN 11/29/15) nitrofurantoin (PAIN, TREMORS, N/V 11/29/15) ciprofloxacin (From CIPRO) (Severe, GI UPSET 11/29/15) Uncoded Allergies: ALL NASAL SPRAYS (Severe, UNKNOWN PER PT 04/17/15) Home Med List: Acetaminophen (Tylenol Extra Strength) 500 MG TABLET 1 TAB PO Q6P PRN Pain . Amoxicillin/Potassium Clav (Augmentin 875-125 Tablet) 875 MG-125 MG TABLET 1 TAB PO BID uti Citalopram Hydrobromide (Citalopram HBr) 10 MG TABLET 1 TAB PO DAILY MENTAL HEALTH (Reported) Donepezil HCl 5 MG TABLET 2 TAB PO DAILY DEMENTIA (Reported) Fenofibrate 160 MG TABLET 1 TAB PO DAILY CHOLESTEROL/TRIGLYCERIDES (Reported) Hydrochlorothiazide 12.5 MG CAPSULE 1 CAP PO DAILY HTN (Reported) Irbesartan (Avapro) 300 MG TABLET 1 TAB PO DAILY HEART (Reported) Levothyroxine Sodium (Levoxyl) 75 MCG TABLET 1 TAB PO DAILY THYROID (Reported ) Memantine HCl (Namenda XR) 14 MG CAP.SPR.24 1 CAP PO DAILY MENTAL HEALTH ( Reported) Metoprolol Succinate 25 MG TAB 0.5 TAB PO BID HTN (Reported) Nitroglycerin 0.4 MG TAB.SUBL 1 TAB SL AD PRN CHEST PAIN (Reported) 1st sign of attack; may repeat every 5 minutes until relief; if pain persists after 3 tablets in 15 minutes, prompt medical att Oxycodone HCl/Acetaminophen (Percocet 5-325 MG Tablet) 5 MG-325 MG TABLET 1-2 TAB PO Q6P PRN pain Oxycodone HCl/Acetaminophen (Percocet 5-325 MG Tablet) 5 MG-325 MG TABLET 1 TAB PO BID PRN pain Pantoprazole Sodium 40 MG TABLET.DR 1 TAB PO DAILY GI (Reported) Rosuvastatin Calcium (Crestor) 20 MG TABLET 1 TAB PO DAILY HEART HEALTH ( Reported) Sucralfate (Carafate) 1 GRAM/10 ML ORAL.SUSP 10 ML PO TID GI (Reported) 1 hour before food and bedtime Warfarin Sodium 4 MG TABLET 0.5 TAB PO DAILY BLD THINNER (Reported) Current Medications: Current Medications Sig/Cassie Start time Last Medication Dose Route Stop Time Status Admin Acetaminophen 650 MG Q6P PRN 10/06 1530 AC PO Al Hydroxide/Mg 30 ML Q4-6 PRN PRN 10/06 1530 AC Hydroxide PO Atorvastatin Calcium 80 MG 1700 10/06 1700 AC 10/06 PO 1814 Citalopram 10 MG DAILY 10/07 1000 AC Hydrobromide PO Donepezil HCl 10 MG DAILY 10/07 1000 AC PO Fenofibrate 145 MG DAILY 10/07 1000 DC PO Fenofibrate 145 MG DAILY 10/07 1000 AC PO Gabapentin 100 MG Q6P PRN 10/06 1600 AC PO Hydrochlorothiazide 12.5 MG DAILY 10/07 1000 AC PO Levothyroxine Sodium 0.075 MG DAILY AC 10/07 0700 DC PO Levothyroxine Sodium 0.05 MG DAILY AC 10/07 0700 AC 10/07 PO 0711 Losartan Potassium 100 MG DAILY 10/07 1000 AC PO Magnesium Hydroxide 30 ML AT BEDTIME PRN 10/06 1530 AC PO Memantine 10 MG AT BEDTIME 10/07 2200 AC PO Memantine 10 MG DAILY 10/07 1000 DC PO Memantine 5 MG DAILY 10/07 1000 AC PO Metoprolol Tartrate 12.5 MG BID 10/06 2200 AC 10/06 PO 2123 Omeprazole 20 MG DAILY AC 10/07 0700 AC 10/07 PO 0710 Potassium Chloride 0 .STK-MED ONE 10/06 1622 DC PO Potassium Chloride 40 MEQ ONCE ONE 10/06 1615 DC 10/06 PO 10/06 1616 1630 Sucralfate 1 GM 1/2 HR AC 10/06 1530 AC PO Warfarin Sodium 4 MG ONCE ONE 10/07 0030 DC 10/07 PO 10/07 0031 0037 Review of Systems Review of Systems Constitutional: Denies: no symptoms, chills, diaphoresis, fever. Cardiovascular: Denies: no symptoms, chest pain, edema, orthopena. Respiratory: Denies: no symptoms, cough, hemoptysis, orthopnea. GI: Denies: no symptoms, abdominal pain, bloating. Genitourinary: Reports: no symptoms (chronic "kidney pain"). 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 Home Who Do You Live With? spouse Services at Home: None Primary Language: South Sudanese Smoking Status: Former Smoker ETOH Use: denies use Illicit Drug Use: denies illicit drug use Functional Ability ADLs Independent: dressing, eating, toileting, bathing. 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 [employer] Exam & Diagnostic Data Last 24 Hrs of Vital Signs/I&O Vital Signs Date Time Temp Pulse Resp B/P B/P Pulse O2 O2 Flow FiO2 Mean Ox Delivery Rate 10/07 0759 96.0 68 133/63 10/06 2123 88 140/60 10/06 2001 98.0 80 145/72 10/06 1732 82 132/68 10/06 1413 97.6 93 18 127/58 99 Room Air 10/06 0942 98.0 80 19 138/64 99 Room Air Intake & Output 10/07 1600 10/07 0800 10/07 0000 Intake Total Output Total Balance Patient 65.487 kg Weight Physical Exam General Appearance: well developed/nourished, no apparent distress, alert, awake Head: atraumatic, normal appearance Eyes: Bilateral: normal appearance, PERRL, EOMI. Ears, Nose, Throat: normal pharynx, normal ENT inspection Neck: normal inspection, supple, full range of motion Respiratory: normal breath sounds, chest non-tender, no respiratory distress Cardiovascular: regular rate/rhythm Gastrointestinal: normal bowel sounds, soft, non-tender, no organomegaly Back: normal inspection, vertebral tenderness Extremities: normal inspection, no edema Neurologic/Psych: no motor/sensory deficits, awake, alert Other Physical Findings: Gait normal, no gross motor or sensory deficit. Reflexes are 2+ and symmetric, cranial nerves 3-12 are grossly intact. No cerebellar signs Last 24 Hrs of Labs/Keshawn: Laboratory Tests 10/07/17 0646: Sodium Pending, Potassium Pending, Chloride Pending, Carbon Dioxide Pending, Anion Gap Pending, Hemoglobin A1c Pending, Triglycerides Pending, Cholesterol Pending, LDL Cholesterol, Calc Pending, HDL Cholesterol Pending, Cholesterol/HDL Ratio Pending, Vitamin B12 Pending, Folate Pending, TSH &T3 &Free T4 Intrp Pending, PT 28.8 H, INR 2.77 H 10/06/17 2310: PT 27.1 H, INR 2.61 H Assessment/Plan Assessment/Plan 76-year-old female multiple medical problems including hypertension, hyperlipidemia, coronary artery disease on Coumadin, fibromyalgia, bilateral renal cysts and TIAs among some of them. Treatment of depression as per psychiatry. We'll continue all of her medical medications. She normally takes Coumadin 2 mg at bedtime and late last night she got 4 mg. Her INR today is 2.7 so for now will avoid any Coumadin and follow the INR. She has this chronic "kidney pain" but her UA and urine culture done in the ED are negative so will watch for now. Problem List: 1. CAD (coronary artery disease) 2. Hypertension 3. Hyperlipidemia 4. Hypothyroidism 5. Fibromyalgia 6. Bilateral renal cysts Consult Acknowledgment - Thank you for your consult request.
[2017-10-07 12:19] VITALS: BP 96/50
--- NOTE | 2017-10-07 13:34 | CPS PROVIDER INIT ASMT PSYCH ---
See Addendum Psychiatric Admission Machine Accountant's Note Reviewed: Yes Patient Seen and Examined: Yes Identifying Information: 76 yo MWF with hx depression and SDAT admitted 10/06/17 on a PEC from ER. Chief Complaint: Passive SI, feeling depressed. Reaction to Hospitalization: Reported having no feeling about the admission. History of Present Illness Onset of Illness: Chronic issues of depression. Was abandoned by mother to aunt's care during childhood. Feels she has given up a lot (to her ). Circumstances Leading to Admission: Presented to ER 10/04/17 with abdominal/flank pain. Reported passive SI. Likely marital/family issues. Dx'd with SDAT and apparent depression. Problem(s) Justifying Need for Admission: Passive SI. Didn't want to return home. Concern for wander risk if released from ER. Other HPI: ~58 years. Lost son at 3 week of age due to brain tumor (patient was 18 yo). Has 3 daughters. Estranged from one. Eldest daughter, Jayashree, is POA and patient feels that Jayashree is bossy and ignores the patient, favoring her father. Patient reports she is here because she became depressed and she reports feeling more depressed now than when she came in. Reports hasn't called her here nor has he visited. Reports she gave up a lot, including having sold her home years ago. The couple has [facility] [place] for 1+ year. States brought her to the ER because she was feeling down, not because of pain. Reports she gets chronic chest pain, her usual, when it is cold out. Reports she is 1 of 8 children and was raised by an aunt in [place]. Sleep: okay. Appetite: so-so, some times doesn't eat all day, not new. Denies weight change. Energy: reports she has a lot of energy. Case discussed in team meeting. Nurse reports that the patient awoke in the middle of the night, confused. Was oriented this morning. Past Psychiatric History Past Diagnosis(es)- if any: Apparently SDAT and depression. Past Precipitating Factors- if any: Likely abandonment issues. - Include inpatient and outpatient treatment Treatment History: Past: Dr. Griffin at [facility] as an outpatient. No inpatient tx. History of Suicide Attempts or Gestures Pill OD at 15 yo. Substance Abuse History: Quit tobacco 20 years ago. Alcohol: never. No drugs. Allergies: Coded Allergies: darifenacin (Severe, UNKNOWN 11/29/15) lidocaine (Severe, RASH 11/29/15) nifedipine (Severe, UNKNOWN 11/29/15) phenobarbital (Severe, UNKNOWN 11/29/15) prednisolone (Severe, RASH 11/29/15) hydromorphone (From DILAUDID) (Intermediate, NAUSEA AND VERTIGO 08/22/17) Sulfa (Sulfonamide Antibiotics) (UNKNOWN 11/29/15) amitriptyline (RASH 11/29/15) aspirin (UNKNOWN 11/29/15) celecoxib (From CELEBREX) (UNKNOWN 11/29/15) clopidogrel (UNKNOWN 11/29/15) diclofenac (From VOLTAREN) (RASH 11/29/15) ezetimibe (UNKNOWN 11/29/15) fluoxetine (From PROZAC) (N/V 11/29/15) metoclopramide (UNKNOWN 11/29/15) nitrofurantoin (PAIN, TREMORS, N/V 11/29/15) ciprofloxacin (From CIPRO) (Severe, GI UPSET 11/29/15) Uncoded Allergies: ALL NASAL SPRAYS (Severe, UNKNOWN PER PT 04/17/15) Home Med List: Celexa 10 mg daily. Aricept 10 mg daily. Tricor 160 mg daily. HCTZ 12.5 mg daily Avapro 300 mg daily. Levothyroxine 50 mcg daily. Namenda XR 14 mg daily. Metoprolol 12.5 mg b.i.d. Pantoprazole 40 mg daily. Crestor 20 mg daily. Crafate 1 gm/10 ml, 10 ml tid Warfarin 2 mg daily Tylenol ES prn NTG prn Percocet 5-325 1-2 tabs q6p - Include any medical condition(s) that may - impact the patient's recovery/remission Past History Medical History Neurological: Alzheimer's disease EENT: NONE Cardiovascular: CAD, hypertension, hyperlipidemia, myocardial infarction, STENTS X 3 CABG X 4 EMBOLIC FEET CARDIAC THROMBUS Respiratory: NONE Gastrointestinal: acid reflux Hepatic: NONE Renal: nephrolithiasis, previous urinary tract infections Musculoskeletal: osteoarthritis, Raynaud's syndrome Psychiatric: anxiety, depression Endocrine: hypothyroidism Blood Disorders: NONE Cancer(s): NONE 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 Substance Use: Denies. Suicides: Denies. Social History Living Situation: Lives with in [facility] in [place]. Significant Relationships (family/friends): Please see above. 3 daughters, estranged from 1. Education: 11th grade education. 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 Legal: No hx arrests. Other Social History: son when patient was 18 yo. Patient was raised by an aunt in [place]. Healthly Behaviors Screening Tobacco Screening Tobacco Use from ED Docu: Quit >30 days ago - If tobacco counseling indicated - the following topics are required. - #1 Recognizing dangerous situations. - #2 Coping Skills. - #3 Basic information about quitting. Status of Tobacco Cessation Counseling: Not Applicable Cessation Med Status Not Applicable Alcohol Screening - ETOH screen POS if BAL >=80 or Audit-C>= M4/F3 Audit-C Score from Diag Assess: 0 Blood Alcohol Level: Laboratory Tests 10/04 1538 Toxicology Serum Alcohol (<10 MG/DL) < 10.0 Alcohol Use Screening Results: Neg per Audit C &/or BAL - If ETOH counseling indicated - the following topics are required. - #1 Express concern about the patient's - drinking at unhealthy levels, include informing - of national norms for moderate drinking: - men <= 14 drinks/week, max 4 drinks/occasion - women <= 7 drinks/week, max 3 drinks/occasion - #2 Providing feedback, including linking alcohol to - negative physical effects (liver injury, hypertension) - negative emotional effects (relationship problems and - depression) - negative occupational consequences (reduced work - performance) - #3 Advising the patient to abstain from alcohol or - to drink below national norms for moderate drinking - (as listed above). Status of ETOH Use Counseling: N/A B/C NO ETOH Use Metabolic Screening - Screen if on a Neuroleptic Medication - Metabolic screening should include: - Blood Pressure, BMI, Glucose or Hgb A1c, & a - Lipid profile from within the past 365 days. Metabolic Screening ([x]) Not Applicable, patient not on a neuroleptic. OR () Patient on a neuroleptic(s) . Enter below results for Hemoglobin A1C, and lipid panel if obtained during the last 365 days. BMI: 24.700 Blood Pressure: 96/50 Laboratory Results From [facility] (If applicable): Exam and Plan Mental Status Examination Ambulation Status: Ambulation WNL. Appearance: Casually dressed WF in NAD. Attitude towards examiner: Calm, polite and cooperative. Psychomotor activity: No psychomotor agitation/retardation. Behavior: WNL. Quality of speech: Speech normal in volume, rate and tone. Affect: Affect calm and blunted. Mood: Sad 9/10. Anxiety 0/10, never had anxiety. Denies feeling hopeless, helpless or guilty. Feels worthless. Suicidal Ideation: Denies active and passive SI. No longer wants to be . Homicidal Ideation: Denies HI. Hallucinations: Denies AH and VH. Paranoid/Delusional Material: Denies PI and magical carroll. Difficulties with thought organization: There is no apparent thought disorder. Insight: Fair. Judgment: Fair at present. Orientation: Oriented to person and place. Date: September 2017. Cognition: President: Jossetony. Governor, [place]ick: doesn't know. Miles from [place] to [place]: doesn't know. Memory Function: Seems impaired. Gave inconsistent number of years she has been . Estimate of intellectual functioning: Average. 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 Has knitted >300 mittens, scarves and hats for [facility] children. Impression/Plan Impression and Plan: Patient is here with hx SDAT and depression in the context of likely marital/ family issues. Long-standing abandonment issues. - Include all active medical diagnosis that require tx DSM 5 Diagnosis(es): Major depression, recurrent, severe. Alzheimer's dementia by hx. CAD. HTN. HLD. Hypothyroidism. Acid reflux. Now reporting hemorrhoids and diarrhea. - Initial Tx Plan for Active Psych & Medical Conditions Treatment Plan: Patient will be monitored on the unit for safety and mood disorder. Will change antidepressant from Celexa 10 mg daily to Lexapro 10 mg daily. Preparation-H prn for hemorrhoids and imodium prn for diarrhea. Hospitalists will be managing coumadin orders. Addditional information is needed from collaterals (family and Dr. Saldivar). Anticipate once clinically stable, that the patient will be discharged to home and and be referred to an IOP. - Factors that would help patient function - in a less restrictive setting. Factors: Improved mood. Absence of SI.
--- NOTE | 2017-10-07 15:02 | SOCIAL WORKER PROG NOTE PSYCH ---
Social Work Progress Note Progress Note Clinician met with patient in her room. Patient was oriented x3, appeared showered, dressed in a sweater and long pants, and hair combed. Patient's affect was bright and she made appropriate eye contact. This was starkly different from when she was in the ED in room 10 on 10/05/16 when she did not open her eyes and reported intense kidney pain. Patient denied pain today. Pt reports she has been eating well while in the hospital. She reports difficulty falling asleep but being able to sleep through the night when she falls asleep. Pt shared that she has "mixed connective tissue disease" which she reports took the doctors two years to correctly diagnosis. She reports when it's cold her feet and hands go completely white and it's extremely painful. She has not had any of these symptoms while in the hospital. Her only complaint today is that she is heartbroken because she called her yesterday and today and she hasn't been able to reach him on the phone. Patient referred to herself as "the bouncer " because she has been through a lot and always bounces back from whatever the struggle. 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 Each time these statements were loosely associated to the topic being discussed, likely a manifestation of her dementia.
--- NOTE | 2017-10-07 15:18 | IP INCIDENTAL NOTE PSYCH ---
Incidental Note Notation: EKG shows prolonged QT/QTc. Will stop SSRI. Will check Mg.
[2017-10-07 15:43] VITALS: BP 133/58
--- NOTE | 2017-10-07 16:09 | IP INCIDENTAL NOTE PSYCH ---
Incidental Note Notation: Dr. Saldivar's office [phone] is closed. I will try to reach him tomorrow.
[2017-10-07 19:53] VITALS: BP 105/44
[2017-10-08 08:12] VITALS: BP 107/48
[2017-10-08 08:24] LABS: PT 35.1 SEC (9.4-12.5)
[2017-10-08 09:26] VITALS: BP 129/51
--- NOTE | 2017-10-08 09:40 | SOCIAL WORKER PROG NOTE PSYCH ---
Social Work Progress Note Progress Note Completed [facility] online concurrent review, check [facility] website for next review date.
[2017-10-08 10:00] VITALS: BP 108/48
--- NOTE | 2017-10-08 10:19 | IP INCIDENTAL NOTE PSYCH ---
Incidental Note Notation: Message left for Dr. Saldivar to call me.
[2017-10-08 12:19] VITALS: BP 120/87
--- NOTE | 2017-10-08 14:21 | Cons- Cardiology ---
General Information and HPI Consulting Request Date of Consult: 10/08/17 Requested By: Adolfo Bond MD Reason for Consult: Abnormal ECG with prolonged QT interval Source of Information: patient Allergies/Medications Allergies: Coded Allergies: darifenacin (Severe, UNKNOWN 11/29/15) lidocaine (Severe, RASH 11/29/15) nifedipine (Severe, UNKNOWN 11/29/15) phenobarbital (Severe, UNKNOWN 11/29/15) prednisolone (Severe, RASH 11/29/15) hydromorphone (From DILAUDID) (Intermediate, NAUSEA AND VERTIGO 08/22/17) Sulfa (Sulfonamide Antibiotics) (UNKNOWN 11/29/15) amitriptyline (RASH 11/29/15) aspirin (UNKNOWN 11/29/15) celecoxib (From CELEBREX) (UNKNOWN 11/29/15) clopidogrel (UNKNOWN 11/29/15) diclofenac (From VOLTAREN) (RASH 11/29/15) ezetimibe (UNKNOWN 11/29/15) fluoxetine (From PROZAC) (N/V 11/29/15) metoclopramide (UNKNOWN 11/29/15) nitrofurantoin (PAIN, TREMORS, N/V 11/29/15) ciprofloxacin (From CIPRO) (Severe, GI UPSET 11/29/15) Uncoded Allergies: ALL NASAL SPRAYS (Severe, UNKNOWN PER PT 04/17/15) Home Med List: Acetaminophen (Tylenol Extra Strength) 500 MG TABLET 1 TAB PO Q6P PRN Pain . Amoxicillin/Potassium Clav (Augmentin 875-125 Tablet) 875 MG-125 MG TABLET 1 TAB PO BID uti Citalopram Hydrobromide (Citalopram HBr) 10 MG TABLET 1 TAB PO DAILY MENTAL HEALTH (Reported) Donepezil HCl 5 MG TABLET 2 TAB PO DAILY DEMENTIA (Reported) Fenofibrate 160 MG TABLET 1 TAB PO DAILY CHOLESTEROL/TRIGLYCERIDES (Reported) Hydrochlorothiazide 12.5 MG CAPSULE 1 CAP PO DAILY HTN (Reported) Irbesartan (Avapro) 300 MG TABLET 1 TAB PO DAILY HEART (Reported) Levothyroxine Sodium (Levoxyl) 75 MCG TABLET 1 TAB PO DAILY THYROID (Reported ) Memantine HCl (Namenda XR) 14 MG CAP.SPR.24 1 CAP PO DAILY MENTAL HEALTH ( Reported) Metoprolol Succinate 25 MG TAB 0.5 TAB PO BID HTN (Reported) Nitroglycerin 0.4 MG TAB.SUBL 1 TAB SL AD PRN CHEST PAIN (Reported) 1st sign of attack; may repeat every 5 minutes until relief; if pain persists after 3 tablets in 15 minutes, prompt medical att Oxycodone HCl/Acetaminophen (Percocet 5-325 MG Tablet) 5 MG-325 MG TABLET 1-2 TAB PO Q6P PRN pain Oxycodone HCl/Acetaminophen (Percocet 5-325 MG Tablet) 5 MG-325 MG TABLET 1 TAB PO BID PRN pain Pantoprazole Sodium 40 MG TABLET.DR 1 TAB PO DAILY GI (Reported) Rosuvastatin Calcium (Crestor) 20 MG TABLET 1 TAB PO DAILY HEART HEALTH ( Reported) Sucralfate (Carafate) 1 GRAM/10 ML ORAL.SUSP 10 ML PO TID GI (Reported) 1 hour before food and bedtime Warfarin Sodium 4 MG TABLET 0.5 TAB PO DAILY BLD THINNER (Reported) Current Medications: Current Medications Sig/Cassie Start time Last Medication Dose Route Stop Time Status Admin Acetaminophen 650 MG Q6P PRN 10/06 1530 AC PO Al Hydroxide/Mg 30 ML Q4-6 PRN PRN 10/06 1530 AC Hydroxide PO Atorvastatin Calcium 80 MG 1700 10/06 1700 AC 10/07 PO 1642 Donepezil HCl 10 MG DAILY 10/07 1000 AC 10/08 PO 0928 Escitalopram Oxalate 10 MG 0810/08 0800 CAN PO Fenofibrate 145 MG DAILY 10/07 1000 AC 10/08 PO 0928 Gabapentin 100 MG Q6P PRN 10/06 1600 AC PO Hydrochlorothiazide 12.5 MG DAILY 10/07 1000 AC 10/08 PO 0928 Levothyroxine Sodium 0.05 MG DAILY AC 10/07 0700 AC 10/08 PO 0711 Loperamide HCl 2 MG Q6P PRN 10/07 1345 AC 10/08 PO 0742 Losartan Potassium 100 MG DAILY 10/07 1000 AC 10/08 PO 0928 Magnesium Hydroxide 30 ML AT BEDTIME PRN 10/06 1530 AC PO Memantine 10 MG AT BEDTIME 10/07 2200 AC 10/07 PO 2251 Memantine 5 MG DAILY 10/07 1000 AC 10/08 PO 0928 Metoprolol Tartrate 12.5 MG BID 10/06 2200 AC 10/08 PO 0928 Omeprazole 20 MG DAILY AC 10/07 0700 AC 10/08 PO 0711 Phenylephrine HCl 1 CLAUDIO Q6P PRN 10/07 1345 AC 10/07 MS 1530 Sucralfate 1 GM 1/2 HR AC 10/06 1530 AC PO Past History Travel History Traveled to [place] past 21 day No Medical History Neurological: Alzheimer's disease EENT: NONE Cardiovascular: CAD, hypertension, hyperlipidemia, myocardial infarction, STENTS X 3 CABG X 4 EMBOLIC FEET CARDIAC THROMBUS Respiratory: NONE Gastrointestinal: acid reflux Hepatic: NONE Renal: nephrolithiasis, previous urinary tract infections Musculoskeletal: osteoarthritis, Raynaud's syndrome Psychiatric: anxiety, depression Endocrine: hypothyroidism Blood Disorders: NONE Cancer(s): NONE 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 Home Who Do You Live With? spouse Services at Home: None Primary Language: Urdu Smoking Status: Former Smoker ETOH Use: denies use Illicit Drug Use: denies illicit drug use Functional Ability ADLs Independent: dressing, eating, toileting, bathing. 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 Exam & Diagnostic Data Vital Signs and I&O Vital Signs Date Time Temp Pulse Resp B/P B/P Pulse O2 O2 Flow FiO2 Mean Ox Delivery Rate 10/08 1219 65 120/87 10/08 1000 108/48 10/08 0928 97.9 74 18 129/51 10/08 0928 97.9 74 18 129/51 10/08 0926 74 129/51 10/08 0812 97.9 78 107/48 10/07 2251 50 98/48 10/07 1953 96.8 50 105/44 10/07 1543 64 133/58 Intake & Output 10/08 1600 10/08 0810/08 0000 10/07 1600 10/07 0000 Intake Total Output Total Balance Patient 144 lb Weight Physical Exam: General Appearance: well developed/nourished, no apparent distress, alert, conversanther complaints Head: Normal Eyes: Bilateral: normal appearance, PERRL, EOMI. Ears, Nose, Throat: normal Neck: normal inspection, supple, full range of motion, JVP normal, carotids normal bilaterally Respiratory: normal breath sounds bilaterally Cardiovascular: regular rate/rhythm, S1, S2, 1 to 2/6 systolic murmur left upper sternal border Gastrointestinal: normal bowel sounds, soft, non-tender, no organomegaly Extremities: normal inspection, no edema, pulses are 2+ and equal bilaterally Neurologic/Psych: Normal/nonfocal O Labs/Keshawn Results: Laboratory Tests 10/08 10/07 10/06 0636 0646 2310 Chemistry Sodium (137 - 145 mmol/L) 144 Potassium (3.5 - 5.1 mmol/L) 4.3 Chloride (98 - 107 mmol/L) 107 Carbon Dioxide (22 - 30 mmol/L) 25 Anion Gap (5 - 16) 12 Hemoglobin A1c (4.2 - 5.8 %) 5.9 H Magnesium (1.6 - 2.3 mg/dL) 1.8 Triglycerides (<150 mg/dL) 185 H Cholesterol (<200 MG/DL) 129 LDL Cholesterol, Calc (65 - 129 mg/dL) 66 HDL Cholesterol (40 - 60 mg/dL) 26 L Cholesterol/HDL Ratio (0.00 - 4.23 %) 5 H Vitamin B12 (239 - 931 pg/mL) > 1000 H Folate (2.76 - 20.0 ng/mL) 4.5 TSH &T3 &Free T4 Intrp (0.270 - 4.20 uIU/mL) 0.561 Coagulation PT (9.4 - 12.5 SEC) 35.1 H 28.8 H 27.1 H INR (0.90 - 1.19) 3.38 H 2.77 H 2.61 H Diagnostic Data EKG Results Normal sinus rhythm; anteroseptal T-wave inversions; corrected QT interval prolonged. Assessment/Plan Assessment/Plan Assessment: 1. Abnormal ECG with anteroseptal T-wave inversions and prolonged QT interval. 2. History of coronary disease, status post bypass surgery, status post multiple stents 3. History of hypertension 4. Hyperlipidemia 5. Mild renal insufficiency 6. Mild hypokalemia. Recommendations: -The patient's ECG is abnormal with anteroseptal T-wave inversions and a mildly prolonged QT interval. ECG findings are reportedly the same as previously. -For now, I would not do any further evaluation pending review of old records and outside cardiology records. -I will try to obtain and review prior ECGs from Dr. Jones's office and [place]. -Echocardiogram to assess left ventricular function, wall motion, etc. -Further plans after the above Consult Acknowledgment - Thank you for your consult request.
--- NOTE | 2017-10-08 15:07 | CP SOUTH PROGRESS NOTE PSYCH ---
Psych (Inpt) Progress Note Progress Note Include the following elements, when applicable: Involvement in the active treatment of the patient with behavioral observations of the patient and the patient's response to the treatment. Review of the ongoing treatment process in the context of the treatment plan. Indication of how multi-disciplinary staff members are carrying out the treatment plan. Plans for future interventions and recommendations for revision of the treatment plan. Liaison with other physicians/providers. Progress Note: Case and treatment plan discussed in team meeting. BP was low at 107/48. Staff reports that the patient is doing well on the unit. Patient seen at 10:43 a.m. She is jiggling her right foot. Feels fine. Has no complaints. Affect is calm and euthymic. Mood: "I'm a little upset, because I finally learned my family don't want me." States family members have not called or visited her here. Reports daughter, Jayashree, who lives in [place], is "very manipulative." States Jayashree wants her father to move to [place], but not the patient. Mood is otherwise alright/fine. Sad: maybe 3/10. Anxiety 0/10. Denies feeling hopeless, helpless, worthless or guilty. Denies active and passive SI, HI, AH, VH and PI. Reports she slept well. Appetite: "I'm eating. " States that she has a lot of energy. Tolerating medications well, without complaint. Ox3 except initially gave month as September then October, year 2017, didn't know the date in October. I tried to reach neurologist, Dr. Saldivar. His coverage does not know the patient and indicated that Dr. Saldivar will be back on Wednesday. QT/QTc are prolonged. I planned to switch Celexa to Lexapro, but we will hold off on both because of QT. HCTZ, Aricept and patient's PPI can all be implicated in prolonging QT. IMPRESSION: Slow progress. Continue present treatment plan. Monitor for depressed mood/SI. Await cardiology consult regarding QT/QTc. A family meeting will be important. Anticipate discharge Wednesday or Wednesday.
--- NOTE | 2017-10-08 15:40 | SOCIAL WORKER PROG NOTE PSYCH ---
Social Work Progress Note Progress Note This fha underwriter met with the patient. She discussed feeling saddened by her family and that she perceives a lack of interest in her by them, particularly her and daughter. Patient often times, during this conversation, stated that she no longer felt sad about this and "I let it all go" only to return back to discussing the sadness related to her relationship with family members. Patient stated that she receives home care services and enjoys them because "I get to talk to someone for a while." She stated that she had been in treatment with a psychiatrist in the past, however, discontinued this as "he told me nothing was wrong with me." This fha underwriter and patient discussed group therapy as part of her discharge plan, which she appeared to be agreeable to. Patient denied SI and stated that she had attempted suicide when she was a teenager, however, has not experienced SI since then. In addition, patient stated that while she would never attempt suicide, "it would satisfy them [ and daughter]." Patient also requested to clarify that when she stated, "I don't want to be here anymore" she is referring to her current situation (hospital and relationship with family members) "not about hurting myself." Patient also shared that when she was a child (approximately age 5) her mother sent her to live with he aunt; she was the only child "sent away" out of her eight siblings. It was unknown to her why this occurred. Patient refused to schedule a family meeting with her , daughter or other family members, stating that she was still angry at them. She was informed that , should she change her mind, she could inform this fha underwriter or [facility] staff. Patient was actively and spontaneously engaged in this conversation. She expressed being angry while also stating that he anger has lessened some since admission. Patient felt that the groups and interacting with others here are helpful and supportive.
[2017-10-08 16:27] VITALS: BP 102/72
--- NOTE | 2017-10-08 16:53 | SOCIAL WORKER PROG NOTE PSYCH ---
Social Work Progress Note Progress Note Patient requested to meet with this remote mortgage underwriter. Patient stated that she was feeling very angry because she spoke with her daughter by phone who informed her why the daughter and the patient's "left me here." However, the reason was unclear to this remote mortgage underwriter. Patient discussed feeling hurt and abandoned by her and daughter and did not want to have any contact with them. Patient stated "I feel safe here and I'm not violent," and was agreeable to speaking with nursing staff should she feel unsafe or feel that her anger increased and/ or she would act on her anger. This remote mortgage underwriter assisted the patient in identifying a plan for the weekend. Patient stated that she will eat her meals, spend time with others, watch tv, sleep and utilize staff support. Towards the end of this conversation, patient was informed by a mental health worker that her had arrived to visit. Patient stated that she did not want to see her and asked that he is asked to leave. Patient's left. This remote mortgage underwriter informed nursing of this conversation.
[2017-10-08 19:42] VITALS: BP 126/65
[2017-10-09 07:54] VITALS: BP 141/68
[2017-10-09 08:14] LABS: PT 26.7 SEC (9.4-12.5)
--- NOTE | 2017-10-09 11:54 | CP SOUTH PROGRESS NOTE PSYCH ---
Psych (Inpt) Progress Note Progress Note Include the following elements, when applicable: Involvement in the active treatment of the patient with behavioral observations of the patient and the patient's response to the treatment. Review of the ongoing treatment process in the context of the treatment plan. Indication of how multi-disciplinary staff members are carrying out the treatment plan. Plans for future interventions and recommendations for revision of the treatment plan. Liaison with other physicians/providers. Progress Note: Chart reviewed. Progress discussed with nursing staff. Interviewed patient this morning. Patient was pleasant, cooperative, and conversant. She reports no acute concerns today. Did describe long-standing conflict with one of her daughters, whom she reports is "trying to get my to move down to [place] with her". "Every time she comes up here from [place] I end up in here." Denies any depressed mood though does readily admit to frustration over her family situation. Denies any sleep problems, reports eating well, denies any physical complaints, denies SI or HI, denies AVH. Per nursing, on recent shifts has been complaining of dysuria. Vital signs reviewed with consistently borderline low blood pressure. Her INR today was 2.57. Mental status exam: Well groomed, properly dressed woman of apparent stated age. No psychomotor agitation or retardation. No abnormal movements noted. Good eye contact. Mildly tearful at times. Speech was within normal limits. Mood was "frustrated, not depressed ". Affect was constricted, mildly labile. Thought process was perseverative, content without SI or HI. She denies AVH. Her cognition was notable for short-term memory loss, unable to recall some contents of our discussion prior and multiple repetitions during the conversation. Otherwise seems to have intact longer term management memory, attention was good. Insight and judgment was limited. Assessment and plan: Mood seems to be improving, does demonstrate evidence of cognitive impairment. Have asked nursing staff to speak with the hospitalist regarding management of her Coumadin, as well as medication recommendations regarding potential UTI symptoms. O/w will continue present management as per primary team.
[2017-10-09 12:06] VITALS: BP 154/65
[2017-10-09 15:36] VITALS: BP 114/61
[2017-10-09 19:46] VITALS: BP 119/61
[2017-10-10 06:40] LABS: ABSOLUTE BASOPHIL COUNT 0 /CUMM (0.0-0.2); ABSOLUTE EOSINOPHIL COUNT 0.3 /CUMM (0.0-0.7); ABSOLUTE GRANULOCYTE CT 4.9 /CUMM (1.4-6.5); ABSOLUTE LYMPH COUNT 1.2 /CUMM (1.2-3.4); ABSOLUTE MONOCYTE COUNT 0.5 /CUMM (0.10-0.60); BASOPHIL % 0.4 % (0.0-2.0); EOSINOPHIL % 3.9 % (0-5); GRANULOCYTE % 71.2 % (42.2-75.2); HEMATOCRIT 38.9 % (37-47); MEAN CORPUSCULAR HGB 28.9 PG (27.0-31.0); MEAN CORPUSCULAR HGB CONC 33.8 G/DL (33.0-37.0); MEAN CORPUSCULAR VOLUME 85.6 FL (81.0-99.0); PLATELET COUNT 222 /CUMM (130-400); RBC DISTRIBUTION WIDTH 14.3 % (11.5-14.5); RED BLOOD CELL CT 4.55 /CUMM (4.20-5.40); WHITE BLOOD CELL COUNT 6.9 /CUMM (4.8-10.8)
[2017-10-10 06:46] LABS: PT 25.3 SEC (9.4-12.5)
[2017-10-10 07:31] VITALS: BP 108/68
--- NOTE | 2017-10-10 11:18 | CP SOUTH PROGRESS NOTE PSYCH ---
Psych (Inpt) Progress Note Progress Note Include the following elements, when applicable: Involvement in the active treatment of the patient with behavioral observations of the patient and the patient's response to the treatment. Review of the ongoing treatment process in the context of the treatment plan. Indication of how multi-disciplinary staff members are carrying out the treatment plan. Plans for future interventions and recommendations for revision of the treatment plan. Liaison with other physicians/providers. Progress Note: Chart reviewed. Progress discussed with nursing staff. Interviewed patient this morning. Almost mirror-image interview as yesterday. Again describes conflict with daughter and , feeling persecuted against by her daughter. "I don't know what I did to deserve this "however denies any acute concerns, physical or otherwise, denies SI or HI, denies any AVH. Denies medication side effects. "I just take it one day at a time". She has difficulty recalling the components of our conversation, and after a few minutes repeats the same content. Vital signs reviewed with chronically borderline low blood pressure. Her INR today was 2.43. Mental status exam: Largely unchanged from yesterday. Well groomed, appropriately dressed woman of apparent stated age. No psychomotor agitation or retardation. No abnormal movements noted. Good eye contact. Speech was within normal limits. Mood was "well it's frustrating having to be here but I try and keep a smile on my face". Affect was constricted, mildly labile. Thought process was perseverative, content without SI or HI. She denies AVH. Her cognition was notable for short-term memory loss, unable to recall some contents of our discussion prior and multiple repetitions during the conversation. Otherwise seems to have intact longer term management memory, attention was good. Insight and judgment was limited. Assessment and plan: Mood seems to be improving, does demonstrate evidence of cognitive impairment. Continue present management, including hospitalist management of coumadin dosing.
[2017-10-10 11:54] VITALS: BP 112/52
[2017-10-10 15:18] VITALS: BP 106/50
[2017-10-10 20:22] VITALS: BP 125/51
[2017-10-11 07:57] VITALS: BP 116/55
[2017-10-11 08:18] LABS: PT 25.1 SEC (9.4-12.5)
[2017-10-11 12:12] VITALS: BP 127/70
--- NOTE | 2017-10-11 13:25 | CP SOUTH PROGRESS NOTE PSYCH ---
Psych (Inpt) Progress Note Progress Note Include the following elements, when applicable: Involvement in the active treatment of the patient with behavioral observations of the patient and the patient's response to the treatment. Review of the ongoing treatment process in the context of the treatment plan. Indication of how multi-disciplinary staff members are carrying out the treatment plan. Plans for future interventions and recommendations for revision of the treatment plan. Liaison with other physicians/providers. Progress Note: Dr. Phelps' notes reviewed. Case and treatment plan discussed in team meeting. Staff reports that the patient has been angry with her family. Denying suicidal ideation. Patient was seen by research dietitian, Dr. Adams and he recommended an echo. Patient seen at 10:29 AM. She was in group prior to my meeting with her. States she is fine. She asked me why she ends up here every time her daughter comes up from [place]. Affect is calm and euthymic. Describes mood as happy. I informed the patient that she will likely be having an echocardiogram today. Rates sad mood and anxiety both 10/13. Denies feeling hopeless, helpless, worthless or guilty. Denies active and passive suicidal ideation. Denies homicidal ideation. Denies auditory and visual hallucinations. She feels that her daughter is out to harm her. She is oriented to person and place. Gives the date as December 2017. Reports she slept all night. States she is eating. States she has a lot of energy. Tolerating medications well. She asked for A & D ointment for use on her lips but I told her I was not sure that this is an approved indication. She plans to use Vaseline. IMPRESSION: Slow progress. Continue present treatment plan. A family meeting will be important. Anticipate likely discharge tomorrow to home and with follow -up at [facility]'s outpatient services.
--- NOTE | 2017-10-11 15:00 | SOCIAL WORKER PROG NOTE PSYCH ---
See Addendum Social Work Progress Note Progress Note 10:00am This fiction and nonfiction prose writer met with patient. Patient continues to express sadness over the relationship with her daughter and , however, was agreeable to scheduling a family meeting with her (PANTERA signed). Patient and this fiction and nonfiction prose writer explored oupatient treatment for her to engage in upon discharge from [facility]. Dr. Rosario was indentified during the team meeting this morning as a geriatric psychiatrist, however, patient stated that he is too far of a commute as is [place]. Patient expressed interest in providers in [place] and [facility] was contacted. This fiction and nonfiction prose writer spoke with Shaniqeu at [facility] who informed that they had a geriatric psychiatry track and the patient could engage in treatment there by utilizing walk in services on Wednesday, Wednesday and Wednesday at 7:45am. The patient would then be assessed and appropriate treatment (LOC) would be documented. Shanique stated that an appointment could not be scheduled outside of the patient utilizing walk in hours, however, records ( if available) could be faxed at attn: Norma Erwin. Patient stated that she would be agreeable to this. She stated that she does not need any additional services or appointments scheduled, including home health aides/visiting nurse (which she denies utilizing at this time - patient stated that her as a visiting nurse and/or home health aide). Patient's arrived on [facility] around 1pm today. He provided a copy of "appointment of a health care pest control service representative and designation of conservator" which was filed in her chart and Dr. Bond was informed of. Patient's attempted to reach his/the patient's daughter in interest of scheduling a family meeting for tomorrow. He was unable to reach her and was provided with the [facility] phone number so he could contact this fiction and nonfiction prose writer later this afternoon to confirm the family meeting time.
[2017-10-11 16:03] VITALS: BP 110/58
[2017-10-11 19:56] VITALS: BP 127/70
[2017-10-12 07:01] LABS: PT 24.2 SEC (9.4-12.5)
[2017-10-12 08:13] VITALS: BP 122/72
[2017-10-12 11:58] VITALS: BP 115/48
--- NOTE | 2017-10-12 13:24 | IP INCIDENTAL NOTE PSYCH ---
Incidental Note Notation: left for Dr. Saldivar to call me.
[2017-10-12] MEDS ORDERED: SYNTHROID50 MCG PO (13:41)
[2017-10-12] MEDS ORDERED: VITAMIN B-121000 MC3 PO (13:41)
[2017-10-12] MEDS ORDERED: MIRALAX119 GM PO (13:41)
--- NOTE | 2017-10-12 13:52 | Patient Discharge Instructions ---
Psych Discharge Inst General Discharge Information Reason for Admission: Passive suicidal ideation, feeling depressed. Psy Discharge Primary Diag+ Major depression, rec., severe Psy Discharge Secondary Diag+ Alzheimer's dementia by history CAD HTN HLD Hypothyroidism Acid reflux Prolonged QT/QTc on EKG Mild renal insufficiency Mild hypokalemia Hx fibromyalgia Hx bilateral renal cysts Hx UTIs Hx osteoarthritis Hx Raynaud's syndrome Summary Tests/Major Procedures Lab ALT 40 U/L 10/04/17 1538 AST 37 U/L H 10/04/17 1538 Cholesterol 129 MG/DL 10/07/17 0646 Cholesterol/HDL Ratio 5 % H 10/07/17 0646 Creatinine 1.2 mg/dL H 10/04/17 1538 Estimated GFR 44 ml/min L 10/04/17 1538 Folate 4.5 ng/mL 10/07/17 0646 HDL Cholesterol 26 mg/dL L 10/07/17 0646 Hemoglobin A1c 5.9 % H 10/07/17 0646 LDL Cholesterol, Calc 66 mg/dL 10/07/17 0646 Potassium 3.3 mmol/L L 10/04/17 1538 Potassium 4.3 mmol/L 10/07/17 0646 TSH &T3 &Free T4 Intrp 0.561 uIU/mL 10/07/17 0646 Triglycerides 185 mg/dL H 10/07/17 0646 Vitamin B12 > 1000 pg/mL H 10/07/17 0646 INR 2.32 H 10/12/17 0609 PT 24.2 SEC H 10/12/17 0609 Hct 36.9 % L 10/04/17 1538 Hct 38.9 % 10/10/17 0626 Hgb 13.1 G/DL 10/10/17 0626 Lymphocytes % 16.9 % L 10/10/17 0626 Plt Count 222 /CUMM 10/10/17 0626 WBC 6.9 /CUMM 10/10/17 0626 Serum Alcohol < 10.0 MG/DL 10/04/17 1538 Ur Epithelial Cells MOD H 10/04/17 1401 Ur Leukocyte Esterase TRACE H 10/04/17 1401 Ur Microscopic SEDIMENT EXAMINED 10/04/17 1401 Urine Clarity CLEAR 10/04/17 1401 Urine Color YEL 10/04/17 1401 Urine Mucus FEW 10/04/17 1401 Urine WBC 3-5 /HPF H 10/04/17 1401 Micro URINE CULTURE Normal COMP 10/04/17 1401 EKG 10/07/17 showed sinus rhythm @ 57, atrial premature complex, ventricular premature complex, inferior infarct, age indeterminate, abnormal T, consider ischemia, anterior leads, borderline prolonged QT interval, note ectopy since previous tracing, abnormal EKG, QT 520, QTC 507. Studies Pending at DC: Echocardiogram 10/12/17 pending. Patient Instructions Contact Information Your Psychiatrist on [facility] was Adolfo Bond MD * If you are experiencing an emergency related to this hospitalization, please call [phone] to contact the treating psychiatrist or the psychiatrist-on- call. * To Request a copy of your medical records, please contact the Medical Records Department at [phone]. * To request results of studies pending at the time of discharge, please call [phone]. * Continue your Medications until directed to stop by your Healthcare provider. General Medication Information Please continue to take your new medications and your continued home medications , unless otherwise indicated on your discharge medication list, or unless directed by your MD or FOIL OPERATOR to stop them. Special Instructions Diet Heart Healthy Activity As Tolerated Other Inst/Recommendations See hydraulic miner blasting about prolonged QT and see PCP and neurologist. - Tobacco Use Treatment Offered Post DC Medications Offered: Not Applicable Post DC Tobacco Treatment Plan: Not Applicable - EtOH/Drug Use D/O Treatment Offered Post DC Medications Offered: NA-No EtOH/Drug Use D/O Post DC EtOH/SubAbuse TX Plan: NA-No EtOH/Drug Use D/O Metabolic Screening ([x]) Not Applicable, patient not on a neuroleptic. OR () Patient on a neuroleptic(s) . Enter below results for Hemoglobin A1C, and lipid panel if obtained during the last 365 days. BMI: 24.700 Blood Pressure: 115/48 Laboratory Results From [facility] (If applicable): Advance Directives Does the Patient have Medical Advance Directives Yes/Copy not provided Does Pt have Psychiatric Advance Directives? No/Refused further info Does Patient have a Designated Surrogate Decision Maker: Yes Information About Psychiatric Advance Directives Provided? Refused Discharge Plan Post Hospital Treatment Plan: [facility] geriatric psychiatry track, walk in services on Wednesday, Wednesday and Wednesday at 7:45am. Please follow up with hydraulic miner blasting about heart issues including prolonged QT. Please follow up with neurologist Dr. Saldivar.
--- NOTE | 2017-10-12 16:35 | CP SOUTH PROGRESS NOTE PSYCH ---
Psych (Inpt) Progress Note Progress Note Include the following elements, when applicable: Involvement in the active treatment of the patient with behavioral observations of the patient and the patient's response to the treatment. Review of the ongoing treatment process in the context of the treatment plan. Indication of how multi-disciplinary staff members are carrying out the treatment plan. Plans for future interventions and recommendations for revision of the treatment plan. Liaison with other physicians/providers. Progress Note: Case and treatment plan discussed in team meeting. Staff reports that the patient is denying suicidal ideation. Patient was scheduled for an echocardiogram this morning. Appearing fine. Tends to repeat stories. There was evidence of depression prior to admission, as the patient was not going to bingo anymore. Family meeting was scheduled for 2 PM. Patient seen at 1:54 PM with medical student. Patient states "I'm good." Reports she has come to terms with what has happened to her. She feels that her daughter, Jayashree, excludes her. Affect is calm and euthymic. Mood is "oh, I'm great." Rate sad mood and anxiety both 10/13. Denies feeling hopeless, helpless , worthless or guilty. Denies active and passive suicidal ideation. Denies homicidal ideation. Denies auditory and visual hallucinations and paranoid ideation. Oriented 3 except gave the date as October, approximately the 2017. Reports sleep is good at 8 hours a night. Appetite: reports she ate everything on her plate. States she has energy. Reports she is doing okay off of Celexa. Tolerating medications well, without complaint. Dr. Wei is not able to return my call today. Message left earlier today to discuss case with Dr. Adams. Echocardiogram results are pending. I joined family meeting with patient, , daughter, Jayashree, Jess Yeager LCSW and with medical student. Patient's and family's questions were addressed. IMPRESSION: Condition improved. Okay for discharge to home and with follow up at [facility] with intake with Joyce on 10/25/17 and a medication appointment with Dr. Celis on 11/04/17.
--- NOTE | 2017-10-12 16:44 | DISCHARGE SUMMARY REPORT-PSYCH ---
Visit Information Visit Dates/Diagnosis' Admission Date: 10/06/17 Discharge Date: 10/12/17 Reason for Admission: Passive suicidal ideation, feeling depressed. Psy Discharge Primary Diag: Major depression, rec., severe Psy Discharge Secondary Diag: Alzheimer's dementia by history CAD HTN HLD Hypothyroidism Acid reflux Prolonged QT/QTc on EKG Mild renal insufficiency Mild hypokalemia Hx fibromyalgia Hx bilateral renal cysts Hx UTIs Hx osteoarthritis Hx Raynaud's syndrome Hospital Course Significant Lab Findings: Lab ALT 40 U/L 10/04/17 1538 AST 37 U/L H 10/04/17 1538 Cholesterol 129 MG/DL 10/07/17 0646 Cholesterol/HDL Ratio 5 % H 10/07/17 0646 Creatinine 1.2 mg/dL H 10/04/17 1538 Estimated GFR 44 ml/min L 10/04/17 1538 Folate 4.5 ng/mL 10/07/17 0646 HDL Cholesterol 26 mg/dL L 10/07/17 0646 Hemoglobin A1c 5.9 % H 10/07/17 0646 LDL Cholesterol, Calc 66 mg/dL 10/07/17 0646 Potassium 3.3 mmol/L L 10/04/17 1538 Potassium 4.3 mmol/L 10/07/17 0646 TSH &T3 &Free T4 Intrp 0.561 uIU/mL 10/07/17 0646 Triglycerides 185 mg/dL H 10/07/17 0646 Vitamin B12 > 1000 pg/mL H 10/07/17 0646 INR 2.32 H 10/12/17 0609 PT 24.2 SEC H 10/12/17 0609 Hct 36.9 % L 10/04/17 1538 Hct 38.9 % 10/10/17 0626 Hgb 13.1 G/DL 10/10/17 0626 Lymphocytes % 16.9 % L 10/10/17 0626 Plt Count 222 /CUMM 10/10/17 0626 WBC 6.9 /CUMM 10/10/17 0626 Serum Alcohol < 10.0 MG/DL 10/04/17 1538 Ur Epithelial Cells MOD H 10/04/17 1401 Ur Leukocyte Esterase TRACE H 10/04/17 1401 Ur Microscopic SEDIMENT EXAMINED 10/04/17 1401 Urine Clarity CLEAR 10/04/17 1401 Urine Color YEL 10/04/17 1401 Urine Mucus FEW 10/04/17 1401 Urine WBC 3-5 /HPF H 10/04/17 1401 Micro URINE CULTURE Normal COMP 10/04/17 1401 EKG 10/07/17 showed sinus rhythm @ 57, atrial premature complex, ventricular premature complex, inferior infarct, age indeterminate, abnormal T, consider ischemia, anterior leads, borderline prolonged QT interval, note ectopy since previous tracing, abnormal EKG, QT 520, QTC 507. ECHOCARDIOGRAM report for 10/12/17 pending. Course Complications: None. Consultations: The patient was seen for admission H&P by Dr. Alvarado. She noted: "76-year-old female multiple medical problems including hypertension, hyperlipidemia, coronary artery disease on Coumadin, fibromyalgia, bilateral renal cysts and TIAs among some of them. Treatment of depression as per psychiatry. We'll continue all of her medical medications. She normally takes Coumadin 2 mg at bedtime and late last night she got 4 mg. Her INR today is 2.7 so for now will avoid any Coumadin and follow the INR. She has this chronic "kidney pain" but her UA and urine culture done in the ED are negative so will watch for now. Problem List: 1. CAD (coronary artery disease) 2. Hypertension 3. Hyperlipidemia 4. Hypothyroidism 5. Fibromyalgia 6. Bilateral renal cysts" The hospitalist service managed the patient's PT/INR and coumadin orders. The patient was seen by Dr. Gavino Adams of cardiology regarding prolonged QT. He noted: "Assessment: 1. Abnormal ECG with anteroseptal T-wave inversions and prolonged QT interval. 2. History of coronary disease, status post bypass surgery, status post multiple stents 3. History of hypertension 4. Hyperlipidemia 5. Mild renal insufficiency 6. Mild hypokalemia. Recommendations: -The patient's ECG is abnormal with anteroseptal T-wave inversions and a mildly prolonged QT interval. ECG findings are reportedly the same as previously. -For now, I would not do any further evaluation pending review of old records and outside cardiology records. -I will try to obtain and review prior ECGs from Dr. Jones's office and [facility]. -Echocardiogram to assess left ventricular function, wall motion, etc. -Further plans after the above" Allergies: Coded Allergies: darifenacin (Severe, UNKNOWN 11/29/15) lidocaine (Severe, RASH 11/29/15) nifedipine (Severe, UNKNOWN 11/29/15) phenobarbital (Severe, UNKNOWN 11/29/15) prednisolone (Severe, RASH 11/29/15) hydromorphone (From DILAUDID) (Intermediate, NAUSEA AND VERTIGO 08/22/17) Sulfa (Sulfonamide Antibiotics) (UNKNOWN 11/29/15) amitriptyline (RASH 11/29/15) aspirin (UNKNOWN 11/29/15) celecoxib (From CELEBREX) (UNKNOWN 11/29/15) clopidogrel (UNKNOWN 11/29/15) diclofenac (From VOLTAREN) (RASH 11/29/15) ezetimibe (UNKNOWN 11/29/15) fluoxetine (From PROZAC) (N/V 11/29/15) metoclopramide (UNKNOWN 11/29/15) nitrofurantoin (PAIN, TREMORS, N/V 11/29/15) ciprofloxacin (From CIPRO) (Severe, GI UPSET 11/29/15) Uncoded Allergies: ALL NASAL SPRAYS (Severe, UNKNOWN PER PT 04/17/15) Hospital Course/TX Response: The patient was monitored on the unit for safety and mood disorder. She participated in multi-modal treatments on the unit. Plan was to change antidepressant from Celexa 10 mg daily to Lexapro 10 mg daily , but because of prolonged QT, Celexa was stopped and was not replaced. Other of patient's medications that can contribute to prolonged QT include Aricept, HCTZ and patient's PPI. These were not changed here but may need alteration after discharge. Mood and affect have improved. SI has remitted. Patient has mild dementia and can be disoriented to date and can be repetitive. Patient has maintained that her daughter, Jayashree, excludes the patient. A family meeting was held and this was discussed. Progress note from date of discharge, 10/12/17: Case and treatment plan discussed in team meeting. Staff reports that the patient is denying suicidal ideation. Patient was scheduled for an echocardiogram this morning. Appearing fine. Tends to repeat stories. There was evidence of depression prior to admission, as the patient was not going to bingo anymore. Family meeting was scheduled for 2 PM. Patient seen at 1:54 PM with medical student. Patient states "I'm good." Reports she has come to terms with what has happened to her. She feels that her daughter, Jayashree, excludes her. Affect is calm and euthymic. Mood is "oh, I'm great." Rate sad mood and anxiety both 10/13. Denies feeling hopeless, helpless , worthless or guilty. Denies active and passive suicidal ideation. Denies homicidal ideation. Denies auditory and visual hallucinations and paranoid ideation. Oriented 3 except gave the date as October, approximately the 2017. Reports sleep is good at 8 hours a night. Appetite: reports she ate everything on her plate. States she has energy. Reports she is doing okay off of Celexa. Tolerating medications well, without complaint. Dr. Wei is not able to return my call today. Message left earlier today to discuss case with Dr. Adams. Echocardiogram results are pending. I joined family meeting with patient, , daughter, Jayashree, Jess Yeager, AMANDA and with medical student. Patient's and family's questions were addressed. IMPRESSION: Condition improved. Okay for discharge to home and with follow up at [facility] with intake with Joyce on 10/25/17 and a medication appointment with Dr. Celis on 11/04/17. Discharge HBIPS - Tobacco Use Treatment Offered Post DC Medications Offered: Not Applicable Post DC Tobacco Treatment Plan: Not Applicable - EtOH/Drug Use D/O Treatment Offered Post DC Medications Offered: NA-No EtOH/Drug Use D/O Post DC EtOH/SubAbuse TX Plan: NA-No EtOH/Drug Use D/O Metabolic Screening - Screen if on a Neuroleptic Medication - Metabolic screening should include: - Blood Pressure, BMI, Glucose or Hgb A1c, & a - Lipid profile from within the past 365 days. Metabolic Screening ([x]) Not Applicable, patient not on a neuroleptic. OR () Patient on a neuroleptic(s) . Enter below results for Hemoglobin A1C, and lipid panel if obtained during the last 365 days. BMI: 24.700 Blood Pressure: 115/48 Laboratory Results From [facility] EHR (If applicable): Discharge Instructions General Discharge Information Multiple Neuroleptics: ([x]) Not Applicable OR Document below three failed attempts at monotherapy, or a plan to taper to monotherapy, or augmentation of Clozapine. () Discharge Diet Heart Healthy Discharge Activity As Tolerated DC Disposition: Returning to home and . Referrals Ordered Referrals Provider Referral 10/25/17 For Groups: [[facility]] [facility] [address] [place], [place] [phone] Intake: 10/25/17 at 11am with Joyce Montano LCSW Provider Referral 10/28/17 For Groups: [Dr. Rubén Saldivar] Dr. Rubén Saldivar [facility] [address] [facility] [address] [place] [address] Appointment: , 10/28/17, at 2pm with Dr. Saldivar Provider Referral 10/13/17 For Groups: [[facility]] Melanie Luis [facility] [phone] Per Melanie, [facility] will resume patient's in home care on 10/13/17. Provider Referral 11/04/17 For Groups: [[facility]] [facility] [address] [place], [place] [phone] Medication Appointment: 11/04/[address] Celis Prescriptions Stop taking the following medications: Citalopram Hydrobromide (Citalopram HBr) 10 MG TABLET ORAL DAILY Qty = 30 Levothyroxine Sodium (Levoxyl) 75 MCG TABLET ORAL DAILY Oxycodone HCl/Acetaminophen (Percocet 5-325 MG Tablet) 5 MG-325 MG TABLET ORAL EVERY SIX HOURS NEEDED as needed for pain Qty = 16 Amoxicillin/Potassium Clav (Augmentin 875-125 Tablet) 875 MG-125 MG TABLET ORAL TWICE DAILY Qty = 14 Oxycodone HCl/Acetaminophen (Percocet 5-325 MG Tablet) 5 MG-325 MG TABLET ORAL TWICE DAILY as needed for pain Qty = 10 Continue taking these medications: Hydrochlorothiazide (Hydrochlorothiazide) 12.5 MG CAPSULE 1 Capsule ORAL DAILY Qty = 90 Comments: Last Taken:10/12/17 Time:0800 Fenofibrate (Fenofibrate) 160 MG TABLET 1 Tablet ORAL DAILY Comments: Last Taken:10/12/17 Time:0800 Irbesartan (Avapro) 300 MG TABLET 1 Tablet ORAL DAILY Comments: Last Taken:COZAAR 100MG GIVEN 10/12/17 Time:0800 Metoprolol Succinate (Metoprolol Succinate) 25 MG TAB 0.5 Tablet ORAL TWICE DAILY Qty = 90 Comments: Last Taken:10/12/17 Time:1100 Rosuvastatin Calcium (Crestor) 20 MG TABLET 1 Tablet ORAL DAILY Comments: Last Taken:10/11/17 AT 1700 Time:ATORVASTATIN GIVEN Memantine HCl (Namenda XR) 14 MG CAP.SPR.24 1 Capsule ORAL DAILY Qty = 90 Comments: Last Taken:10/12/17 Time:0800 Warfarin Sodium (Warfarin Sodium) 4 MG TABLET 0.5 Tablet ORAL DAILY Qty = 30 Comments: Last Taken:10/11/17 Time:1700 Sucralfate (Carafate) 1 GRAM/10 ML ORAL.SUSP 10 Milliliters ORAL THREE TIMES DAILY Qty = 2700 Instructions: 1 hour before food and bedtime Comments: Last Taken:10/12/17 Time:1100 Donepezil HCl (Donepezil HCl) 5 MG TABLET 2 Tablet ORAL DAILY Qty = 30 Comments: Last Taken:10/12/17 Time:0800 Acetaminophen (Tylenol Extra Strength) 500 MG TABLET 1 Tablet ORAL EVERY SIX HOURS NEEDED as needed for Pain Qty = 30 Instructions: . Comments: Last Taken:NOT USED IN THE HOSPITAL Time: Pantoprazole Sodium (Pantoprazole Sodium) 40 MG TABLET.DR 1 Tablet ORAL DAILY Qty = 90 Comments: Last Taken:10/12/17 Time:0600 Nitroglycerin (Nitroglycerin) 0.4 MG TAB.SUBL 1 Tablet SUBLINGUAL As Directed as needed for CHEST PAIN Qty = 25 Instructions: 1st sign of attack; may repeat every 5 minutes until relief; if pain persists after 3 tablets in 15 minutes, prompt medical att Comments: Last Taken:NOT USED IN THE HOSPITAL Time: Start taking the following new medications: Polyethylene Glycol 3350 (Miralax) 17 GRAM/DOSE POWDER 17 Gram ORAL DAILY Qty = 1 No Refills Comments: Last Taken:10/12/17 Time:0800 Levothyroxine Sodium (Synthroid) 50 MCG TABLET 0.05 Milligram ORAL DAILY BEFORE BREAKFAST Qty = 14 No Refills Comments: Last Taken: Time:Last Taken:10/12/17 Time:0600 Cyanocobalamin (Vitamin B-12) 1,000 MCG TABLET 1,000 Microgram ORAL DAILY Qty = 14 No Refills Comments: Last Taken:10/12/17 Time:0800 Other Inst/Recommendations See med peds about prolonged QT and see PCP and neurologist. Copies To: Vimal OSHEA,Masha; Janna OSHEA,Rubén Jenkins; Angie OSHEA,Shanti Mancia
--- NOTE | 2017-10-12 18:28 | SOCIAL WORKER PROG NOTE PSYCH ---
Social Work Progress Note Progress Note 10:10am This financial writer spoke with patient's daughter, Jayashree, to confirm the 2pm family meeting and inform of anticipated discharge following the family meeting. During the call, Jayashree shared that the patient has been receiving 6 hours per day of home health care through [facility] and utilizes [facility] ([facility]), however, would like her mother to have more hours. She stated that her father has "turned them away" in the past. Jayashree stated that she had been in contact with Melanie and was in agreement with this financial writer contacting her as well. She stated that she is interested in moving her parents to a new home that is more accessible for them both as she is concerned about the stairs in the current home. Regarding the paperwork for "appointment of a health care jewelry sales representative and desgination of the conservator" (which was provided by the patient's and is filed in the patient's chart), she stated that she does not have the name of the customer program manager involved with this at the time of this call. She was asked to bring this information when she attends the family meeting this afternoon, to which she agreed. Patient was informed of the information provided by her daughter (as documented above), to include the [facility] services. Patient was agreeable to these services and to increase the number of hours spent. She signed [facility], [facility] and [facility]. 1:40pm This financial writer returned call from Melanie Luis (nurse briefcase sewer with [facility] in interest of re-engaging the patient in services. Melanie was informed that the patient is anticipated to discharge this afternoon. She stated that the patient currently has a personal development educator for 3 hours per day/five days per week in which she receives "hands on care," light housework, meal preparation and errands. Melanie stated that they could also provide some transportation to appointments. Melanie requested that the patient health summary and W10 are faxed to her (fax: [phone]). Melanie asked about services that the family and the patient would like to be provided to the patient upon discharge. She was informed that this financial writer would review with the family and contact her later this afternoon. (Following the family meeting, this financial writer spoke with Melanie and services will resume on 10/13/17 of 9 hours per day, seven days per week.) This financial writer met with the patient prior to the family meeting. She expressed interest in returning home today and was willing to attend outpatient treatment at [facility], via the walk in intake hours on Wed, and Wed at 7: 45am. She maintains that she is agreeable to the home health aides. She expressed interest in discussing her concerns about feeling "left out" by her daughter during today's family meeting. 2:00pm Serafin Christianson (medical student) and this financial writer met with the patient, her and her daughter. Medication questions and concerns were reviewed with Dr. Bond. Family stressors were also explored - specifically patient's concern about feeling left out. Both the patient and her daughter expressed their thoughts and feelings as well as perceptions regarding the matter. Jayashree, the patient's daughter, talked about her experience when she visits her parents and asks about her father when greeted by her mother due to concerns about the father's physical health. Alternately, Jayashree explained that when she is greeted by her father, she asks for her mother. Patient agreed to inform her daughter should she feel left out. Additionally, Jayashree discussed efforts to find a new home for the patient and the patient's , in part due to concerns about their safety, as they currently live in a home with a large staircase. Home health aide visitation was also explored, to include services they would like to be provided, as well as the patient's 's past decisions to turn them away due to be self concious about his own medical conditions. All were in agreement with increasing the number of hours that the home health aides would provide services and for this financial writer to relay the information to Melanie at [facility] Jayashree explained that she is trying to provide as many services as possible in order to avoid a fpc or "state facility." This financial writer reviewed outpatient treatment with the patient and her family. They were agreeable to the patient attending outpatient services through [facility] with the plan to transfer care when the patient and her move. Patient and her family were concerned about payment and if services will be covered by insurance. This financial writer agreed to call [facility] before the patient discharges to clarify this. An appointment will also be scheduled for Dr. Saldivar. Patient and her family were informed that the nursing staff would review discharge information, to include appointments and medications, prior to discharge. Additionally, they were informed of the crisis number and warm lines numbers that would be provided upon discharge. This financial writer spoke with Milena at [facility] (geriatric program) who confirmed that the insurance would cover the treatment. She stated that this financial writer may be able to schedule an intake appointment and avoid walk in hours by speaking with Samantha (help desk assistant). Milena transferred this financial writer and a voicemail was left for Samantha with call back number. Samantha returned the call and informed this financial writer that an intake could not be scheduled and the patient would need to utilize walk in hours in order to engage in their services. This was relayed to the patient and her family. Patient and her daughter then requested a referral to [facility] as she would be able to have an appointment (rather than walk in). Referral was made. This financial writer also spoke with Dr. Saldivar's office to schedule an appointment. Patient (and family) agreed to appointments are as follows: - [facility] - 10/25/17 at 11am with Joyce Chilel LCSW - 11/04/[address] Celis - Dr. Rubén Saldivar (fax: [phone], confirmed with the doctor's answering service) - 10/28/17 at 2pm - [facility] - to begin services on 10/13/17 Faxed Referral(s) 1 Referred To: Dr. Saldivar Transition of Care Documents sent: Health Summary Faxed to: Dr. Saldivar Fax #: [phone] Faxed by: Reyna CARDW Date faxed: 10/12/17 Time Faxed: [phone] Faxed Referral(s) 2 Referred To: [facility] Transition of Care Documents sent: Health Summary, Transfer Summary Faxed to: [facility] Fax #: [phone] Faxed by: Reyna Yeager WIRE PULLER Date faxed: 10/12/17 Time Faxed: [phone] Faxed Referral(s) 3 Referred To: [facility] Transition of Care Documents sent: Health Summary, W10 Faxed to: Melanie Luis Fax #: [phone] Faxed by: Reyna Yeager LCSW Comment: Assists with scheduling services for [facility]
--- NOTE | 2017-10-13 09:01 | ECHOCARDIOGRAM REPORT ---
CHETAN SHARMA Age: 76 : 1940 Gender: F Exam Date: 10/12/2017 09:33 Exam Location: [facility] Ht (in): 64 Wt (lb): 144 BSA: 1.73 BP: 129 / 58 Ordering Physician: Adolfo Bond MD Referring Physician: Adolfo Bond MD Technologist: Eduardo Campbell [facility] Room Number: B2-02 Indications: AFIB/FLUTTER Rhythm: Sinus Technical Quality: Fair, Technically difficult study FINDINGS Left Ventricle Normal size left ventricle. No obvious regional wall motion abnormalities. Normal left ventricular ejection fraction estimated at 55-60%. Right Ventricle Right ventricle not well visualized, grossly normal. Right Atrium Normal right atrial size. Left Atrium Left atrial size at the upper limits of normal. Mitral Valve Mitral valve thickened. Mild mitral annular calcification. Mild mitral regurgitation. Aortic Valve Trileaflet aortic valve. No aortic regurgitation. No aortic stenosis. Trace aortic regurgitation. Tricuspid Valve Tricuspid valve not well visualized, grossly normal. Mild-to- moderate tricuspid regurgitation. Right ventricular systolic pressure estimated at 30 mmHg. Pulmonic Valve Structurally normal pulmonic valve. Pericardium No pericardial effusion. Great Vessels Aortic root and proximal ascending aorta not well visualized, grossly normal. CONCLUSIONS 1. This was a technically difficult examination. 2. Mild to moderate aortic sclerosis is present with minimal aortic insufficiency. 3. MItral leaflet thickening is present with mild anular calcification and mild mitral insufficiency,. 4. There is no pericardial fluid present 5. The left ventricular chamber size and systolic function appear normal with no obvious resting wall motion abnormalities. 6. Mild to moderate tricuspid insufficiency is present with no evidence of pulmonary hypertension. 7. 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 Margie Adams M.D. (Electronically Signed) Final Date: 13 October 2017 09:01 MEASUREMENTS (Male / Female) Normal Values 2D ECHO LV Diastolic Diameter PLAX 4.4 cm 4.2 - 5.9 / 3.9 - 5.3 cm LV Systolic Diameter PLAX 2.6 cm 2.1 - 4.0 cm LV Fractional Shortening PLAX 40.9 % 25 - 46 % LV Ejection Fraction 2D Teich 71.9 % IVS Diastolic Thickness 1.1 cm LVPW Diastolic Thickness 0.9 cm LV Relative Wall Thickness 0.5 RV Internal Dim ED PLAX 2.7 cm 1.9 - 3.8 cm LVOT Diameter 1.8 cm Aortic Root Diameter 2.9 cm LA Systolic Diameter LX 3.5 cm 3.0 - 4.0 / 2.7 - 3.8 cm Ascending Aorta Diameter 2.8 cm DOPPLER AV Peak Velocity 168.0 cm/s AV Peak Gradient 11.3 mmHg AV Mean Velocity 106.0 cm/s AV Mean Gradient 6.0 mmHg AV Velocity Time Integral 36.9 cm AI Deceleration Rawlins 116.0 cm/s AI Peak Velocity 351.0 cm/s AI Pressure Half Time 882.0 ms AI Peak Gradient 49.3 mmHg LVOT Peak Velocity 102.0 cm/s LVOT Peak Gradient 4.2 mmHg LVOT Mean Velocity 60.9 cm/s LVOT Mean Gradient 2.0 mmHg LVOT Velocity Time Integral 21.8 cm LVOT Stroke Volume 55.5 cm AV Area Cont Eq vti 1.5 cm AV Area Cont Eq pk 1.5 cm MV Peak Velocity 91.1 cm/s MV Peak Gradient 3.3 mmHg MV Mean Velocity 58.4 cm/s MV Mean Gradient 1.0 mmHg Mitral E Point Velocity 66.6 cm/s Mitral A Point Velocity 73.5 cm/s Mitral E to A Ratio 0.9 MV PHT Velocity 85.7 cm/s MV Deceleration Rawlins 167.0 cm/s MV Pressure Half Time 154.0 ms MV Area PHT 1.4 cm MV Deceleration Time 239.0 ms MR Peak Velocity 538.0 cm/s MR Peak Gradient 115.8 mmHg TR Peak Velocity 258.0 cm/s TR Peak Gradient 26.6 mmHg Right Atrial Pressure 5.0 mmHg Pulmonary Artery Systolic Pressu 31.6 mmHg Right Ventricular Systolic Press 31.6 mmHg PV Peak Velocity 101.0 cm/s PV Peak Gradient 4.1 mmHg PV Mean Velocity 65.8 cm/s PV Mean Gradient 2.0 mmHg PV Velocity Time Integral 20.9 cm
--- NOTE | 2017-10-14 11:47 | IP INCIDENTAL NOTE PSYCH ---
Incidental Note Notation: Case d/w Dr. Del Wei, including prolonged QT and that Aricept can be a cause.
--- NOTE | 2017-10-14 11:55 | IP INCIDENTAL NOTE PSYCH ---
Incidental Note Notation: I reviewed echo report. Case d/w Dr. Adams. He will follow up about QT.
== END 2017-10-12 17:37 | DRG 885 ==
LOC: ERH 13:30 → ERHI 10-06 13:49 → CP SOUTH 10-06 13:49 → ENTRNSPT 10-06 16:41 → EDTRNSPTSTS 10-06 16:41 → EDTRNSPT 10-06 16:41 → CP SOUTH 10-06 16:53 → CMPTRNSPT 10-06 16:55 → ENRESERV 10-06 23:59 → CP SOUTH 10-11 06:28
PROVIDERS: Internal Medicine; Physician Assistant Medical; Psychiatry & Neurology Psychiatry
DX: F33.2 Major depressive disorder, recurrent severe without psychotic features (principal); G30.9 Alzheimer's disease, unspecified; F02.80 Dementia in other diseases classified elsewhere, unspecified severity, without behavioral disturbance, psychotic disturbance, mood disturbance, and anxiety; I45.81 Long QT syndrome; I25.10 Atherosclerotic heart disease of native coronary artery without angina pectoris; I10 Essential (primary) hypertension; E78.5 Hyperlipidemia, unspecified; E03.9 Hypothyroidism, unspecified; K21.9 Gastro-esophageal reflux disease without esophagitis; N28.9 Disorder of kidney and ureter, unspecified; M79.7 Fibromyalgia
CPT/HCPCS: 36415; 80307; 81001; 87086; 93005; 93010; 93306; G0463; G0480; J3490

== ENCOUNTER 2017-10-29 09:37 | Emergency (ER) | payer OTHER, MEDICARE ==
[~2017-10-29 09:37] MED LIST changes: +MIRALAX119 GM PO; +SYNTHROID50 MCG PO; +VITAMIN B-121000 MC3 PO
--- NOTE | 2017-10-29 10:46 | ED GI/GU/ABDOMINAL COMPLAINT ---
History of Present Illness General Chief Complaint: Low Back Pain/Injury Stated Complaint: LOW BACK PAIN Source: patient, family Exam Limitations: no limitations Vital Signs & Intake/Output Vital Signs & Intake/Output Vital Signs Date Time Temp Pulse Resp B/P B/P Pulse O2 O2 Flow FiO2 Mean Ox Delivery Rate 10/29 1619 97.6 62 15 130/60 97 Room Air 10/29 1415 98.3 66 16 142/76 99 Room Air 10/29 1235 97.6 62 16 138/74 97 Room Air 10/29 1058 99 Room Air 10/29 0944 97.2 52 18 110/55 98 Room Air Allergies Coded Allergies: darifenacin (Severe, UNKNOWN 11/29/15) lidocaine (Severe, RASH 11/29/15) nifedipine (Severe, UNKNOWN 11/29/15) phenobarbital (Severe, UNKNOWN 11/29/15) prednisolone (Severe, RASH 11/29/15) hydromorphone (From DILAUDID) (Intermediate, NAUSEA AND VERTIGO 08/22/17) Sulfa (Sulfonamide Antibiotics) (UNKNOWN 11/29/15) amitriptyline (RASH 11/29/15) aspirin (UNKNOWN 11/29/15) celecoxib (From CELEBREX) (UNKNOWN 11/29/15) clopidogrel (UNKNOWN 11/29/15) diclofenac (From VOLTAREN) (RASH 11/29/15) ezetimibe (UNKNOWN 11/29/15) fluoxetine (From PROZAC) (N/V 11/29/15) metoclopramide (UNKNOWN 11/29/15) nitrofurantoin (PAIN, TREMORS, N/V 11/29/15) ciprofloxacin (From CIPRO) (Severe, GI UPSET 11/29/15) Uncoded Allergies: ALL NASAL SPRAYS (Severe, UNKNOWN PER PT 04/17/15) Reconcile Medications Acetaminophen (Tylenol Extra Strength) 500 MG TABLET 1 TAB PO Q6P PRN Pain . Cyanocobalamin (Vitamin B-12) 1,000 MCG TABLET 1,000 MCG PO DAILY Vitamin B12 supplement Donepezil HCl 5 MG TABLET 2 TAB PO DAILY DEMENTIA (Reported) Fenofibrate 160 MG TABLET 1 TAB PO DAILY CHOLESTEROL/TRIGLYCERIDES (Reported) Hydrochlorothiazide 12.5 MG CAPSULE 1 CAP PO DAILY HTN (Reported) Irbesartan (Avapro) 300 MG TABLET 1 TAB PO DAILY HEART (Reported) Levothyroxine Sodium (Synthroid) 50 MCG TABLET 0.05 MG PO DAILY AC hypothyroidism Memantine HCl (Namenda XR) 14 MG CAP.SPR.24 1 CAP PO DAILY MENTAL HEALTH ( Reported) Metoprolol Succinate 25 MG TAB 0.5 TAB PO BID HTN (Reported) Nitroglycerin 0.4 MG TAB.SUBL 1 TAB SL AD PRN CHEST PAIN (Reported) 1st sign of attack; may repeat every 5 minutes until relief; if pain persists after 3 tablets in 15 minutes, prompt medical att Oxycodone HCl 5 MG TABLET 1 TAB PO Q8P PRN pain Pantoprazole Sodium 40 MG TABLET.DR 1 TAB PO DAILY GI (Reported) Polyethylene Glycol 3350 (Miralax) 17 GRAM/DOSE POWDER 17 GM PO DAILY constipation Rosuvastatin Calcium (Crestor) 20 MG TABLET 1 TAB PO DAILY HEART HEALTH ( Reported) Sucralfate (Carafate) 1 GRAM/10 ML ORAL.SUSP 10 ML PO TID GI (Reported) 1 hour before food and bedtime Warfarin Sodium 4 MG TABLET 0.5 TAB PO DAILY BLD THINNER (Reported) Triage Note: 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 HAS A PRESCRIPTION FOR PERCOCET BUT IT IS NOT HELPING HER. PT STATES THAT SHE NEEDS SOMETHING STRONGER TO HELP HER WITH THE PAIN Triage Nurses Notes Reviewed? yes ? n Is pt currently ? No HPI: Patient presents for evaluation of a severe "left kidney pain" that began last night. The pain has been constant severe and sharp. Patient has similar pains in the past due to "a muscle pushing on her kidney". She denies any associated fever, cold symptoms, nausea, vomiting or diarrhea. She has also had dysuria since last night. The pain worsens with palpation and movement. She has tried Tylenol in the past without improvement. She has not taking any pain medicines today but did take her usual medications this morning. Past History Travel History Traveled to [place] past 21 day No Medical History Any Pertinent Medical History? 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 No Review of Systems Review of Systems Constitutional: Reports: no symptoms. EENTM: Reports: no symptoms. Respiratory: Reports: no symptoms. Cardiovascular: Reports: no symptoms. GI: Reports: no symptoms. Genitourinary: Reports: no symptoms. Musculoskeletal: Reports: no symptoms. Skin: Reports: no symptoms. Neurological/Psychological: Reports: no symptoms. Hematologic/Endocrine: Reports: no symptoms. Immunologic/Allergic: Reports: no symptoms. All Other Systems: Reviewed and Negative Physical Exam Physical Exam Gastrointestinal: see below Comments: gen: wn, wd, no acute resp distress, severe pain with movement head: nc/at eyes: normal inspection ears: normal inspection nose: normal inspection throat/mouth: moist mucosa neck: supple, from, no goiter heart: rrr, no mrg lungs: cta bilaterally with normal air entry chest: nt abd: soft, nd, normal bowel sounds, nontender back: decreased ROM due to pain, diffuse tenderness bilaterally ext: normal range of motion, no cyanosis, clubbing or edema, LE's with nl stength and sensation skin: warm and dry circulatory: normal radial pulses neuro: cn 2-12 grossly intact, speech clear psych: calm, cooperative, no apparent delusion, hallucinations or pressured speech Core Measures ACS in differential dx? No Sepsis Present: No Sepsis Focused Exam Completed? No Progress Differential Diagnosis: kidney stone, ovarian cyst, UTI/pyelo, RENAL CYSTS Plan of Care: Orders Procedure Date/time Status BASIC METABOLIC PANEL 10/29 1259 Complete Laboratory Tests 10/29/17 1439: Anion Gap 12, Estimated GFR 37 L, BUN/Creatinine Ratio 14.3, Glucose 90, Calcium 9.2 Diagnostic Imaging: Discussed w/RAD: Ultrasound. Radiology Impression: PATIENT: CHETAN SHARMA PRESENT AGE: 76 PATIENT ACCOUNT NO: [id number] : 40 LOCATION: [facility] ORDERING PHYSICIAN: Jonatan Coelho MD SERVICE DATE: 10/29/176 EXAM TYPE : US - US-RENAL/KIDNEY EXAMINATION: US RETROPERITONEAL COMPLETE (RENAL) CLINICAL INFORMATION: Left flank pain. History of renal cysts.. COMPARISON: Renal ultrasound from 08/07/2017. CT images from 08/22/2017. TECHNIQUE: Real-time imaging of the kidneys and bladder. FINDINGS: RIGHT KIDNEY: 9.6 x 3.6 x 3.8 cm ( SAG x AP x TRV). The kidney has normal cortical thickness and echotexture. 1.3 cm simple cortical cyst in the upper pole. 1.2 cm simple cyst in the lower pole, as well. No evidence of solid renal mass, nephrolithiasis or hydronephrosis. LEFT KIDNEY: 10.1 x 4.3 x 4.1 cm (SAG x AP x TRV). The kidney has normal cortical thickness and echotexture. Simple cyst in the interpolar region measures up to 3 cm maximum dimension. No nephrolithiasis or hydronephrosis. BLADDER: Urinary bladder is distended to an estimated volume of 202 mL. After voiding, there is a negligible residual of 2 mL. Ureteral jets were not visualized during the time of imaging. No evidence of bladder mass, debris or calculus. IMPRESSION: 1. Benign bilateral renal cysts. 2. No acute findings; no evidence of nephrolithiasis or hydronephrosis. DICTATED BY: Aidan Benavides MD DATE/TIME DICTATED:10/29/171448 FOUNDRY SUPERVISOR:GRETEL DATE/TIME TRANSCRIBED:10/29/171448 CONFIDENTIAL, DO NOT COPY WITHOUT APPROPRIATE AUTHORIZATION. <Electronically signed in Other Vendor System> SIGNED BY: Aidan Benavides MD 10/29/17 0358 Initial ED EKG: none Departure Departure Disposition: HOME OR SELF CARE Condition: Stable Clinical Impression Primary Impression: Renal cyst Secondary Impressions: Left flank pain Referrals: Edmond Hamilton MD (PCP/Family) Additional Instructions: Ibuprofen 600 mg every 6 hours as needed for pain. Add oxycodone if necessary. Follow-up with your primary care physician on Wednesday for reevaluation. Return if any concerns or sudden worsening. Please note that there might be incidental findings in your evaluation that are unrelated to the current emergency department visit. Please notify your primary care doctor about this emergency department visit in order to obtain and review all of the testing performed so that these incidental findings can be monitored as needed. If you had an x-ray performed, please understand that some fractures may not be seen on the initial set of x-rays. If your symptoms persist you might need a repeat set of x-rays to check for such a fracture. If you had a laceration evaluated, please understand that foreign bodies such as glass or wood may not be visible to the naked eye or on plain x-rays. If the wound becomes red, swollen, increasingly more painful or if there is any drainage from the wound, please have it reevaluated by a physician for the possibility of a retained foreign body. If you're unable to follow up as outlined in the discharge instructions please return to the emergency department. Thank you for choosing the [facility] Emergency Department for your care. It was a pleasure to serve you today. Jonatan Coelho M.D. [facility] Departure Forms: Customer Survey General Discharge Information Prescriptions: Current Visit Scripts Oxycodone HCl 1 TAB PO Q8P PRN pain #21 TAB
--- NOTE | 2017-10-29 14:55 | ULTRASOUND REPORT ---
EXAMINATION: US RETROPERITONEAL COMPLETE (RENAL) CLINICAL INFORMATION: Left flank pain. History of renal cysts.. COMPARISON: Renal ultrasound from 08/07/2017. CT images from 08/22/2017. TECHNIQUE: Real-time imaging of the kidneys and bladder. FINDINGS: RIGHT KIDNEY: 9.6 x 3.6 x 3.8 cm (SAG x AP x TRV). The kidney has normal cortical thickness and echotexture. 1.3 cm simple cortical cyst in the upper pole. 1.2 cm simple cyst in the lower pole, as well. No evidence of solid renal mass, nephrolithiasis or hydronephrosis. LEFT KIDNEY: 10.1 x 4.3 x 4.1 cm (SAG x AP x TRV). The kidney has normal cortical thickness and echotexture. Simple cyst in the interpolar region measures up to 3 cm maximum dimension. No nephrolithiasis or hydronephrosis. BLADDER: Urinary bladder is distended to an estimated volume of 202 mL. After voiding, there is a negligible residual of 2 mL. Ureteral jets were not visualized during the time of imaging. No evidence of bladder mass, debris or calculus. IMPRESSION: 1. Benign bilateral renal cysts. 2. No acute findings; no evidence of nephrolithiasis or hydronephrosis.
[2017-10-29] MEDS ORDERED: OXYCODONE HCL5 M1 PO (17:19)
[2017-10-29 17:39] VITALS: BP 132/64
== END 2017-10-29 17:40 ==
LOC: ERH 09:37
DX: N28.1 Cyst of kidney, acquired (principal); R10.9 Unspecified abdominal pain
CPT/HCPCS: 76775; 96374; 96375; J0131; J1200; J1885

== ENCOUNTER 2018-02-18 19:38 | Emergency (ER) | payer OTHER, MEDICARE ==
[2018-02-18 20:15] LABS: ABSOLUTE BASOPHIL COUNT 0 /CUMM (0.0-0.2); ABSOLUTE EOSINOPHIL COUNT 0.2 /CUMM (0.0-0.7); ABSOLUTE GRANULOCYTE CT 5.4 /CUMM (1.4-6.5); ABSOLUTE LYMPH COUNT 2.3 /CUMM (1.2-3.4); ABSOLUTE MONOCYTE COUNT 0.6 /CUMM (0.10-0.60); BASOPHIL % 0.4 % (0.0-2.0); EOSINOPHIL % 1.8 % (0-5); GRANULOCYTE % 63.1 % (42.2-75.2); HEMATOCRIT 37.8 % (37-47); MEAN CORPUSCULAR HGB 28.3 PG (27.0-31.0); MEAN CORPUSCULAR VOLUME 85.7 FL (81.0-99.0); MEAN PLATELET VOLUME 8.9 FL (7.4-10.4); PLATELET COUNT 243 /CUMM (130-400); RBC DISTRIBUTION WIDTH 14.3 % (11.5-14.5); RED BLOOD CELL CT 4.41 /CUMM (4.20-5.40); WHITE BLOOD CELL COUNT 8.5 /CUMM (4.8-10.8)
[2018-02-18 20:20] LABS: PT 31.3 SEC (9.4-12.5)
--- NOTE | 2018-02-18 22:11 | ED GI/GU/ABDOMINAL COMPLAINT ---
History of Present Illness General Chief Complaint: Female Urogenital Problems Stated Complaint: PER PT 'BAD UTI?/KIDNEY PAIN? Source: patient Exam Limitations: no limitations Allergies Coded Allergies: darifenacin (Severe, UNKNOWN 11/29/15) lidocaine (Severe, RASH 11/29/15) nifedipine (Severe, UNKNOWN 11/29/15) phenobarbital (Severe, UNKNOWN 11/29/15) prednisolone (Severe, RASH 11/29/15) hydromorphone (From DILAUDID) (Intermediate, NAUSEA AND VERTIGO 08/22/17) Sulfa (Sulfonamide Antibiotics) (UNKNOWN 11/29/15) amitriptyline (RASH 11/29/15) aspirin (UNKNOWN 11/29/15) celecoxib (From CELEBREX) (UNKNOWN 11/29/15) clopidogrel (UNKNOWN 11/29/15) diclofenac (From VOLTAREN) (RASH 11/29/15) ezetimibe (UNKNOWN 11/29/15) fluoxetine (From PROZAC) (N/V 11/29/15) metoclopramide (UNKNOWN 11/29/15) nitrofurantoin (PAIN, TREMORS, N/V 11/29/15) ciprofloxacin (From CIPRO) (Severe, GI UPSET 11/29/15) Uncoded Allergies: ALL NASAL SPRAYS (Severe, UNKNOWN PER PT 04/17/15) Reconcile Medications Cephalexin (Keflex) 500 MG CAPSULE 1 CAP PO TID uti Cyanocobalamin (Vitamin B-12) 1,000 MCG TABLET 1,000 MCG PO DAILY Vitamin B12 supplement Donepezil HCl 5 MG TABLET 2 TAB PO DAILY DEMENTIA (Reported) Fenofibrate 160 MG TABLET 1 TAB PO DAILY CHOLESTEROL/TRIGLYCERIDES (Reported) Hydrochlorothiazide 12.5 MG CAPSULE 1 CAP PO DAILY HTN (Reported) Irbesartan (Avapro) 300 MG TABLET 1 TAB PO DAILY HEART (Reported) Levothyroxine Sodium (Synthroid) 50 MCG TABLET 0.05 MG PO DAILY AC hypothyroidism Memantine HCl (Namenda XR) 14 MG CAP.SPR.24 1 CAP PO DAILY MENTAL HEALTH ( Reported) Metoprolol Succinate 25 MG TAB 0.5 TAB PO BID HTN (Reported) Nitroglycerin 0.4 MG TAB.SUBL 1 TAB SL AD PRN CHEST PAIN (Reported) 1st sign of attack; may repeat every 5 minutes until relief; if pain persists after 3 tablets in 15 minutes, prompt medical att Pantoprazole Sodium 40 MG TABLET.DR 1 TAB PO DAILY GI (Reported) Polyethylene Glycol 3350 (Miralax) 17 GRAM/DOSE POWDER 17 GM PO DAILY constipation Rosuvastatin Calcium (Crestor) 20 MG TABLET 1 TAB PO DAILY HEART HEALTH ( Reported) Sucralfate (Carafate) 1 GRAM/10 ML ORAL.SUSP 10 ML PO TID GI (Reported) 1 hour before food and bedtime Warfarin Sodium 4 MG TABLET 0.5 TAB PO DAILY BLD THINNER (Reported) Triage Note: PER PT PAIN TO L KIDNEY BURNING WITH URINATION SINCE LAST NIGHT PT UNABLE TO SIT STILL Triage Nurses Notes Reviewed? yes LMP (ages 10-50): post menopausal ? n Is pt currently ? No Onset: Abrupt Duration: day(s): (1), constant, continues in ED, getting worse Timing: single episode today Quality/Severity: cramping Severity Numbers: 7 Location: left flank, right flank Radiation: no radiation Activities at Onset: none Prior Abdominal Problems: similar symptoms Past Sexual History: Unobtainable at this time No Modifying Factors: none Modifying Factors: Worsens With: movement, palpation. Associated Symptoms: abdominal pain, dysuria HPI: 77-year-old female past medical history of coronary artery disease, hypertension , dementia, mixed connective tissue disorders, chronic pain presents for evaluation of bilateral flank pain frequency urgency dysuria. Patient states symptoms started today and had been worsening. The pain is located in the bilateral lower flanks. The pain does not radiate. Patient states that she will have this pain "all the time" but it is worse today. No fever no abdominal pain chest pain shortness of breath no difficulty urinating no hematuria no vaginal discharge or bleeding. (Carlos Gillespie) Vital Signs & Intake/Output Vital Signs & Intake/Output Vital Signs Date Time Temp Pulse Resp B/P B/P Pulse O2 O2 Flow FiO2 Mean Ox Delivery Rate 02/19 0011 97.4 83 20 108/74 96 Room Air 02/189 97.5 89 112/62 99 Room Air 02/18 1945 98.2 79 22 147/78 97 (Laquita OSHEA,Jonatan Gutierrez) Past History Travel History Traveled to [place] past 21 day No Medical History Any Pertinent Medical History? 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 No (Carlos Gillespie) Review of Systems Review of Systems Constitutional: Reports: no symptoms. EENTM: Reports: no symptoms. Respiratory: Reports: no symptoms. Cardiovascular: Reports: no symptoms. GI: Reports: see HPI, abdominal pain. Genitourinary: Reports: see HPI, dysuria, frequency, pain, urgency. Musculoskeletal: Reports: no symptoms. Skin: Reports: no symptoms. Neurological/Psychological: Reports: no symptoms. Hematologic/Endocrine: Reports: no symptoms. Immunologic/Allergic: Reports: no symptoms. All Other Systems: Reviewed and Negative (Carlos Gillespie) Physical Exam Physical Exam General Appearance: well developed/nourished, no apparent distress, alert, awake Head: atraumatic, normal appearance Eyes: Bilateral: normal appearance, PERRL, EOMI. Ears, Nose, Throat, Mouth: hearing grossly normal, moist mucous membrane Neck: normal inspection, supple, full range of motion Respiratory: normal breath sounds, chest non-tender, no respiratory distress, lungs clear Cardiovascular: regular rate/rhythm, normal peripheral pulses Peripheral Pulses: 2+ radial (R), 2+ radial (L) Gastrointestinal: normal bowel sounds, soft, no organomegaly, tenderness (flank ) Back: normal inspection, normal range of motion, no vertebral tenderness Extremities: normal range of motion Neurologic/Psych: no motor/sensory deficits, awake, alert, oriented x 3, normal gait Skin: intact, normal color, warm/dry Core Measures ACS in differential dx? No Sepsis Present: No Sepsis Focused Exam Completed? No (Carlos Gillespie) Progress Differential Diagnosis: AAA, AMI, appendicitis, biliary colic, bowel obstruction , colon cancer, cholecystitis, gastritis, ischemic bowel, inflamm bowel dis, kidney stone, ovarian cyst, ovarian torsion, pancreatitis, PID/cervicitis, peptic ulcer, PUD/GERD, UTI/pyelo Diagnostic Imaging: Viewed by Me: CT Scan. Discussed w/RAD: CT Scan. Radiology Impression: PATIENT: CHETAN SHARMA PRESENT AGE: 77 PATIENT ACCOUNT NO: [id number] : 40 LOCATION: [facility] ORDERING PHYSICIAN: Carlos LABOY SERVICE DATE: 02/18/18 EXAM TYPE: CAT - CT ABD & PELVIS W/O IV CONTRAS EXAMINATION: CT ABDOMEN AND PELVIS WITHOUT CONTRAST CLINICAL INFORMATION: Bilateral flank pain COMPARISON: CT scan abdomen pelvis 08/22/2017 TECHNIQUE: Multidetector volumetric imaging was performed from the superior aspect of the liver through the pubic symphysis. Sagittal and coronal reformatted images were obtained on the technologist's workstation. DLP: 317.05 mGy-cm FINDINGS: LUNG BASES: There is emphysematous changes at the lung bases. The lungs are clear. Status post median sternotomy. There is healed left seventh lateral rib fracture LIVER, GALLBLADDER, AND BILIARY TREE: The liver is normal in size, shape, and attenuation. No focal hepatic lesion or biliary ductal dilatation is present. The gallbladder is unremarkable with no evidence of radiopaque gallstones, gallbladder wall thickening, or obvious pericholecystic inflammatory changes. PANCREAS: Unremarkable. SPLEEN: Unremarkable. ADRENAL GLANDS: Unremarkable. KIDNEYS AND URETERS: The kidneys are normal in size, shape, and attenuation. No hydronephrosis, hydroureter, or calculi seen. No perinephric stranding. BLADDER: Unremarkable. GASTROINTESTINAL TRACT: There are a few scattered diverticula of the colon. No diverticulitis. No acute change of the bowel. No bowel obstruction. No bowel wall thickening or edema. Scattered stool in the colon. The appendix is normal. The small bowel loops are unremarkable. ABDOMINAL WALL: No significant hernia is appreciated. LYMPH NODES: Normal. VASCULAR: There is atherosclerotic vascular wall calcification of the abdominal aorta and iliac arteries. There is no aneurysm of the aorta. PELVIC VISCERA: The uterus is absent. There is no adnexal abnormality. OSSEOUS STRUCTURES: Unremarkable. IMPRESSION: No acute abnormality CT of the abdomen and pelvis. DICTATED BY: Roe Leon MD DATE/TIME DICTATED:2344 ELECTRIFIER OPERATOR:GRETEL DATE/TIME TRANSCRIBED:02/18/182344 CONFIDENTIAL, DO NOT COPY WITHOUT APPROPRIATE AUTHORIZATION. <Electronically signed in Other Vendor System> SIGNED BY: Roe Leon MD 02/18/18 859 Initial ED EKG: none (Sai LABOY,Carlos) Plan of Care: Orders Procedure Date/time Status Add-on Test (ER Only) 02/18 2139 Active CULTURE,URINE 02/19 2000 Active PROTHROMBIN TIME 02/19 1956 Complete URINALYSIS 02/18 1941 Complete TROPONIN LEVEL 02/18 1941 Complete COMPREHENSIVE METABOLIC PANEL 02/18 1941 Complete CBC WITHOUT DIFFERENTIAL 02/18 1941 Complete Laboratory Tests 02/18/181999: Anion Gap 14, Estimated GFR 36 L, BUN/Creatinine Ratio 20.0, Glucose 139 H, Calcium 9.3, Total Bilirubin 0.5, AST 30, ALT 20, Alkaline Phosphatase 77, Troponin I < 0.01, Total Protein 7.1, Albumin 4.3, Globulin 2.8, Albumin/ Globulin Ratio 1.5, PT 31.3 H, INR 2.84 H, CBC w Diff NO MAN DIFF REQ, RBC 4.41, MCV 85.7, MCH 28.3, MCHC 33.0, RDW 14.3, MPV 8.9, Gran % 63.1, Lymphocytes % 27.2, Monocytes % 7.5, Eosinophils % 1.8, Basophils % 0.4, Absolute Granulocytes 5.4, Absolute Lymphocytes 2.3, Absolute Monocytes 0.6, Absolute Eosinophils 0.2, Absolute Basophils 0, Urine Color YEL, Urine Clarity CLEAR, Urine pH 6.0, Ur Specific [place] 1.010, Urine Protein NEG, Urine Ketones NEG, Urine Nitrite NEG, Urine Bilirubin NEG, Urine Urobilinogen 0.2, Ur Leukocyte Esterase LARGE H, Ur Microscopic SEDIMENT EXAMINED, Urine WBC 5-10 H, Ur Epithelial Cells FEW, Urine Hemoglobin NEG, Urine Glucose NEG Microbiology 02/19 2000 URINE ROUT: Urine Culture - RES Patient seen and evaluated. She is here with bilateral flank pain and urinary symptoms. Her vitals are stable. The flank pain is chronic she's had a multiple times in the past. No nausea vomiting diarrhea. No chest pain or shortness of breath. Urine culture ordered. CT scan of the abdomen and pelvis ordered. Blood work otherwise within normal limits. CT does not show any acute findings. Patient will be treated for UTI with cephalexin. Advised a restaurant play fluids Tylenol for pain. Discussed return precautions follow up with primary care doctor and specialist. Case discussed with Dr. Coelho he agrees. (Carlos Gillespie) (Laquita OSHEA,Jonatan Gutierrez) Departure Departure Disposition: STILL A PATIENT Condition: Stable Clinical Impression Primary Impression: Flank pain Referrals: Edmond Hamilton MD (PCP/Family) Additional Instructions: tale antibiotics as directed for the full course. Make a follow-up with your primary care doctor monitor symptoms return with any concerns. Departure Forms: Customer Survey General Discharge Information Prescriptions: Current Visit Scripts Cephalexin (Keflex) 1 CAP PO TID #30 CAP (Carlos Gillespie) PA/MAIL HANDLER ASSISTANT Co-Sign Statement Statement: ED Attending supervision documentation- [x] I saw and evaluated the patient. I have also reviewed all the pertinent lab results and diagnostic results. I agree with the findings and the plan of care as documented in the PA's/MAIL HANDLER ASSISTANT's documentation. Patient presents for evaluation of left flank pain and burning with urination. Physical examination reveals a mildly uncomfortable appearing woman in no acute respiratory distress. Abdominal examination benign. [] I have reviewed the ED Record and agree with the PA's/MAIL HANDLER ASSISTANT's documentation. [] Additions or exceptions (if any) to the PAs/MAIL HANDLER ASSISTANT's note and plan are summarized below: [] (Laquita OSHEA,Jonatan Gutierrez)
--- NOTE | 2018-02-18 23:57 | CT SCAN REPORT ---
EXAMINATION: CT ABDOMEN AND PELVIS WITHOUT CONTRAST CLINICAL INFORMATION: Bilateral flank pain COMPARISON: CT scan abdomen pelvis 08/22/2017 TECHNIQUE: Multidetector volumetric imaging was performed from the superior aspect of the liver through the pubic symphysis. Sagittal and coronal reformatted images were obtained on the technologist's workstation. DLP: 317.05 mGy-cm FINDINGS: LUNG BASES: There is emphysematous changes at the lung bases. The lungs are clear. Status post median sternotomy. There is healed left seventh lateral rib fracture LIVER, GALLBLADDER, AND BILIARY TREE: The liver is normal in size, shape, and attenuation. No focal hepatic lesion or biliary ductal dilatation is present. The gallbladder is unremarkable with no evidence of radiopaque gallstones, gallbladder wall thickening, or obvious pericholecystic inflammatory changes. PANCREAS: Unremarkable. SPLEEN: Unremarkable. ADRENAL GLANDS: Unremarkable. KIDNEYS AND URETERS: The kidneys are normal in size, shape, and attenuation. No hydronephrosis, hydroureter, or calculi seen. No perinephric stranding. BLADDER: Unremarkable. GASTROINTESTINAL TRACT: There are a few scattered diverticula of the colon. No diverticulitis. No acute change of the bowel. No bowel obstruction. No bowel wall thickening or edema. Scattered stool in the colon. The appendix is normal. The small bowel loops are unremarkable. ABDOMINAL WALL: No significant hernia is appreciated. LYMPH NODES: Normal. VASCULAR: There is atherosclerotic vascular wall calcification of the abdominal aorta and iliac arteries. There is no aneurysm of the aorta. PELVIC VISCERA: The uterus is absent. There is no adnexal abnormality. OSSEOUS STRUCTURES: Unremarkable. IMPRESSION: No acute abnormality CT of the abdomen and pelvis.
[2018-02-19] MEDS ORDERED: KEFLEX500 M1 PO (00:03)
[2018-02-19 00:11] VITALS: BP 108/74
== END 2018-02-19 00:14 ==
LOC: ERH 19:38
PROVIDERS: Emergency Medicine; Physician Assistant Medical
DX: R10.32 Left lower quadrant pain (principal); R10.31 Right lower quadrant pain
CPT/HCPCS: 74176; 81001; 87086